=== PATIENT | female | born 1960 | race Caucasian/White ===

== ENCOUNTER 2016-06-30 15:26 | Inpatient (IN) | payer MEDICARE, BC ==
[2016-06-30] MEDS ORDERED: SODIUM CHLORIDE 0.9% 1,000 ML IV ONE ×2 (16:22→17:02)
--- NOTE | 2016-06-30 16:28 | ED ---
General Adult HPI - General Stated complaint: Altered Mental Status Time Seen by Provider: 06/30/16 16:11 Source: RN notes reviewed - History of Present Illness Initial comments: Patient is a 56-year-old female presents to the emergency room for evaluation of altered mental status. Patient's states that patient began with nausea and vomiting on Friday morning and has not left her bed since. Patient' s states that patient has not been acting herself and has not eaten anything since Friday. Patient denies any vomiting since Friday. Patient denies chest pain, shortness of breath, headache, dizziness. Patient does state that she noticed that her left pinky toe began turning purple and has been getting worse over the past few days. Patient denies any known trauma or injury to her foot. Patient states it hurts to put weight on her left foot. Patient denies any fevers or chills. Patient states she is very thirsty. Patient denies any current nausea. Patient denies abdominal pain. Patient denies chest pain. Patient states she's had no appetite since Friday. Patient states she takes Flexeril, Neurontin and [place] for chronic low back pain. Patient denies any other significant past medical history. - Related Data Home Medications Medication Instructions Recorded Confirmed Albuterol Sulfate [Proair Hfa] 2 puff INHALATION RT-Q6H PRN 06/30/16 06/30/16 Cyclobenzaprine [Flexeril] 10 mg PO HS 06/30/16 06/30/16 Gabapentin 800 mg PO TID PRN 06/30/16 06/30/16 HYDROcodone/APAP 7.5-325MG [[place] 1 tab PO BID PRN 06/30/16 06/30/16 7.5-325] diphenhydrAMINE HCL [Benadryl] 50 mg PO TID PRN 06/30/16 06/30/16 Allergies Allergy/AdvReac Type Severity Reaction Status Date / Time No Known Allergies Allergy Verified 06/30/16 18:37 Review of Systems ROS Statement: Those systems with pertinent positive or pertinent negative responses have been documented in the HPI. ROS Other: All systems not noted in ROS Statement are negative. General Exam - General Exam Comments Initial Comments: Laying in exam room, no acute distress. General appearance: alert Head exam: Present: atraumatic, normocephalic, normal inspection Eye exam: Present: normal appearance Pupils: Present: normal accommodation ENT exam: Present: normal exam, mucous membranes dry Neck exam: Present: normal inspection, full ROM. Absent: tenderness, lymphadenopathy Respiratory exam: Present: normal lung sounds bilaterally. Absent: respiratory distress Cardiovascular Exam: Present: regular rate, normal rhythm, normal heart sounds GI/Abdominal exam: Present: soft, normal bowel sounds. Absent: distended, tenderness, guarding, rebound, rigid Left Foot/Toe exam: Present: tenderness (Palpating over the 1-5 digits). Absent: normal inspection (black appearing digits of left foot ), full ROM Neurovascular tendon exam: Absent: pulse deficit (2+ dorsal pedal and posterior to the pulses) Back exam: Present: normal inspection Neurological exam: Present: alert Psychiatric exam: Present: normal affect Skin exam: Present: warm Course Vital Signs 06/30/16 06/30/16 06/30/16 16:00 18:35 19:18 Temperature 98.3 F 99.3 F 97.7 F Pulse Rate 122 H 124 H 125 H Respiratory 18 16 16 Rate Blood Pressure 166/97 164/87 134/99 O2 Sat by Pulse 96 98 99 Oximetry 06/30/16 20:19 Temperature Pulse Rate 112 H Respiratory 20 Rate Blood Pressure 178/82 O2 Sat by Pulse 96 Oximetry EKG Findings - EKG Comments: EKG Findings:: Sinus tachycardia, ventricular rate 116 bpm, RI interval 138 milliseconds, QRS duration 82 ms, QT/QTc is 318/442 ms Medical Decision Making - Medical Decision Making Patient is a 56-year-old female presents to the emergency room for evaluation. Patient's elevated WBC. Urinalysis suspicious for urinary tract infection. Patient also noted to have blue discoloration of the toes of her left foot. Patient will be admitted for rehydration, treatment for urinary tract infection and consult with vascular specialist for possible arterial occlusion of left foot. Case discussed with Dr. Villanueva who also evaluated patient. Dr. Villanueva spoke with Dr. Burton who agreed to admit patient. - Lab Data Result diagrams: 06/30/16 16:20 06/30/16 18:23 Lab Results 06/30/16 06/30/16 06/30/16 Range/Units 16:20 16:20 16:20 WBC 11.4 H (3.8-10.6) k/uL RBC 5.04 (3.80-5.40) m/uL Hgb 15.2 (11.4-16.0) gm/dL Hct 43.8 (34.0-46.0) % MCV 87.0 (80.0-100.0) fL MCH 30.1 (25.0-35.0) pg MCHC 34.6 (31.0-37.0) g/dL RDW 14.5 (11.5-15.5) % Plt Count 108 L (150-450) k/uL Neutrophils % 88 % Lymphocytes % 4 % Monocytes % 5 % Eosinophils % 1 % Basophils % 0 % Neutrophils # 10.0 H (1.3-7.7) k/uL Lymphocytes # 0.4 L (1.0-4.8) k/uL Monocytes # 0.6 (0-1.0) k/uL Eosinophils # 0.1 (0-0.7) k/uL Basophils # 0.0 (0-0.2) k/uL Poikilocytosis Slight ESR 35 H (0-20) mm/hr PT (9.0-12.0) sec INR (<1.1) APTT (22.0-30.0) sec Sodium (137-145) mmol/L Potassium (3.5-5.1) mmol/L Chloride (98-107) mmol/L Carbon Dioxide (22-30) mmol/L Anion Gap mmol/L BUN (7-17) mg/dL Creatinine (0.52-1.04) mg/dL Est GFR (MDRD) Af Amer (>60 ml/min/1.73 sqM) Est GFR (MDRD) Non-Af (>60 ml/min/1.73 sqM) Glucose (74-99) mg/dL POC Glucose (mg/dL) (75-99) mg/dL POC Glu Floral Artist ID Plasma Lactic Acid Rob[place] 1.6 (0.7-2.0) mmol/L Calcium (8.4-10.2) mg/dL Total Bilirubin (0.2-1.3) mg/dL AST (14-36) U/L ALT (9-52) U/L Alkaline Phosphatase (38-126) U/L Total Creatine Kinase (30-135) U/L CK-MB (CK-2) (0.0-2.4) ng/mL CK-MB (CK-2) Rel Index Troponin I (0.000-0.034) ng/mL C-Reactive Protein (<10.0) mg/L Total Protein (6.3-8.2) g/dL Albumin (3.5-5.0) g/dL Urine Color Urine Appearance (Clear) Urine pH (5.0-8.0) Ur Specific [place] (1.001-1.035) Urine Protein (Negative) Urine Glucose (UA) (Negative) Urine Ketones (Negative) Urine Blood (Negative) Urine Nitrate (Negative) Urine Bilirubin (Negative) Urine Urobilinogen (<2.0) mg/dL Ur Leukocyte Esterase (Negative) Urine RBC (0-5) /hpf Urine WBC (0-5) /hpf Urine WBC Clumps (None) /hpf Ur Squamous Epith Cells (0-4) /hpf Urine Bacteria (None) /hpf Urine Mucus (None) /hpf Urine Opiates Screen (NotDetected) Ur Oxycodone Screen (NotDetected) Urine Methadone Screen (NotDetected) Ur Propoxyphene Screen (NotDetected) Ur Barbiturates Screen (NotDetected) U Tricyclic Antidepress (NotDetected) Ur Phencyclidine Scrn (NotDetected) Ur Amphetamines Screen (NotDetected) U Methamphetamines Scrn (NotDetected) U Benzodiazepines Scrn (NotDetected) Urine Cocaine Screen (NotDetected) U Marijuana (THC) Screen (NotDetected) 06/30/16 06/30/16 06/30/16 Range/Units 16:41 18:23 18:23 WBC (3.8-10.6) k/uL RBC (3.80-5.40) m/uL Hgb (11.4-16.0) gm/dL Hct (34.0-46.0) % MCV (80.0-100.0) fL MCH (25.0-35.0) pg MCHC (31.0-37.0) g/dL RDW (11.5-15.5) % Plt Count (150-450) k/uL Neutrophils % % Lymphocytes % % Monocytes % % Eosinophils % % Basophils % % Neutrophils # (1.3-7.7) k/uL Lymphocytes # (1.0-4.8) k/uL Monocytes # (0-1.0) k/uL Eosinophils # (0-0.7) k/uL Basophils # (0-0.2) k/uL Poikilocytosis ESR (0-20) mm/hr PT (9.0-12.0) sec INR (<1.1) APTT (22.0-30.0) sec Sodium 139 (137-145) mmol/L Potassium 3.3 L (3.5-5.1) mmol/L Chloride 109 H (98-107) mmol/L Carbon Dioxide 18 L (22-30) mmol/L Anion Gap 12 mmol/L BUN 27 H (7-17) mg/dL Creatinine 0.90 (0.52-1.04) mg/dL Est GFR (MDRD) Af Amer >60 (>60 ml/min/1.73 sqM) Est GFR (MDRD) Non-Af >60 (>60 ml/min/1.73 sqM) Glucose 102 H (74-99) mg/dL POC Glucose (mg/dL) 88 (75-99) mg/dL POC Glu Floral Artist ID [place] Plasma Lactic Acid Robles (0.7-2.0) mmol/L Calcium 7.7 L (8.4-10.2) mg/dL Total Bilirubin 1.2 (0.2-1.3) mg/dL AST 27 (14-36) U/L ALT 34 (9-52) U/L Alkaline Phosphatase 78 (38-126) U/L Total Creatine Kinase 387 H (30-135) U/L CK-MB (CK-2) 0.6 (0.0-2.4) ng/mL CK-MB (CK-2) Rel Index 0.2 Troponin I <0.012 (0.000-0.034) ng/mL C-Reactive Protein (<10.0) mg/L Total Protein 4.9 L (6.3-8.2) g/dL Albumin 2.7 L (3.5-5.0) g/dL Urine Color Urine Appearance (Clear) Urine pH (5.0-8.0) Ur Specific [place] (1.001-1.035) Urine Protein (Negative) Urine Glucose (UA) (Negative) Urine Ketones (Negative) Urine Blood (Negative) Urine Nitrate (Negative) Urine Bilirubin (Negative) Urine Urobilinogen (<2.0) mg/dL Ur Leukocyte Esterase (Negative) Urine RBC (0-5) /hpf Urine WBC (0-5) /hpf Urine WBC Clumps (None) /hpf Ur Squamous Epith Cells (0-4) /hpf Urine Bacteria (None) /hpf Urine Mucus (None) /hpf Urine Opiates Screen (NotDetected) Ur Oxycodone Screen (NotDetected) Urine Methadone Screen (NotDetected) Ur Propoxyphene Screen (NotDetected) Ur Barbiturates Screen (NotDetected) U Tricyclic Antidepress (NotDetected) Ur Phencyclidine Scrn (NotDetected) Ur Amphetamines Screen (NotDetected) U Methamphetamines Scrn (NotDetected) U Benzodiazepines Scrn (NotDetected) Urine Cocaine Screen (NotDetected) U Marijuana (THC) Screen (NotDetected) 06/30/16 06/30/16 06/30/16 Range/Units 18:23 18:23 18:45 WBC (3.8-10.6) k/uL RBC (3.80-5.40) m/uL Hgb (11.4-16.0) gm/dL Hct (34.0-46.0) % MCV (80.0-100.0) fL MCH (25.0-35.0) pg MCHC (31.0-37.0) g/dL RDW (11.5-15.5) % Plt Count (150-450) k/uL Neutrophils % % Lymphocytes % % Monocytes % % Eosinophils % % Basophils % % Neutrophils # (1.3-7.7) k/uL Lymphocytes # (1.0-4.8) k/uL Monocytes # (0-1.0) k/uL Eosinophils # (0-0.7) k/uL Basophils # (0-0.2) k/uL Poikilocytosis ESR (0-20) mm/hr PT 10.5 (9.0-12.0) sec INR 1.0 (<1.1) APTT 27.6 (22.0-30.0) sec Sodium (137-145) mmol/L Potassium (3.5-5.1) mmol/L Chloride (98-107) mmol/L Carbon Dioxide (22-30) mmol/L Anion Gap mmol/L BUN (7-17) mg/dL Creatinine (0.52-1.04) mg/dL Est GFR (MDRD) Af Amer (>60 ml/min/1.73 sqM) Est GFR (MDRD) Non-Af (>60 ml/min/1.73 sqM) Glucose (74-99) mg/dL POC Glucose (mg/dL) (75-99) mg/dL POC Glu Floral Artist ID Plasma Lactic Acid [place] (0.7-2.0) mmol/L Calcium (8.4-10.2) mg/dL Total Bilirubin (0.2-1.3) mg/dL AST (14-36) U/L ALT (9-52) U/L Alkaline Phosphatase (38-126) U/L Total Creatine Kinase (30-135) U/L CK-MB (CK-2) (0.0-2.4) ng/mL CK-MB (CK-2) Rel Index Troponin I (0.000-0.034) ng/mL C-Reactive Protein 381.8 H (<10.0) mg/L Total Protein (6.3-8.2) g/dL Albumin (3.5-5.0) g/dL Urine Color Yellow Urine Appearance Cloudy H (Clear) Urine pH 6.0 (5.0-8.0) Ur Specific [place] 1.016 (1.001-1.035) Urine Protein 2+ H (Negative) Urine Glucose (UA) Negative (Negative) Urine Ketones 1+ H (Negative) Urine Blood Moderate H (Negative) Urine Nitrate Positive H (Negative) Urine Bilirubin Negative (Negative) Urine Urobilinogen <2.0 (<2.0) mg/dL Ur Leukocyte Esterase Moderate H (Negative) Urine RBC 17 H (0-5) /hpf Urine WBC 108 H (0-5) /hpf Urine WBC Clumps Few H (None) /hpf Ur Squamous Epith Cells 1 (0-4) /hpf Urine Bacteria Many H (None) /hpf Urine Mucus Few H (None) /hpf Urine Opiates Screen Not Detected (NotDetected) Ur Oxycodone Screen Not Detected (NotDetected) Urine Methadone Screen Not Detected (NotDetected) Ur Propoxyphene Screen Not Detected (NotDetected) Ur Barbiturates Screen Not Detected (NotDetected) U Tricyclic Antidepress Not Detected (NotDetected) Ur Phencyclidine Scrn Not Detected (NotDetected) Ur Amphetamines Screen Not Detected (NotDetected) U Methamphetamines Scrn Not Detected (NotDetected) U Benzodiazepines Scrn Not Detected (NotDetected) Urine Cocaine Screen Not Detected (NotDetected) U Marijuana (THC) Screen Not Detected (NotDetected) - Radiology Data Radiology results: report reviewed, image reviewed Disposition Clinical Impression: Urinary tract infection, Arterial occlusion, Dehydration Disposition: ADMITTED IP TO THIS [facility] Condition: Stable Decision Date: 06/30/16
[2016-06-30 16:42] LABS: Glucose,Whole Blood 88 mg/dL (75-99)
--- NOTE | 2016-06-30 17:03 | XR ---
EXAMINATION TYPE: XR chest 2V DATE OF EXAM: 06/30/2016 4:59 PM COMPARISON: NONE HISTORY: Foot pain, dehydration TECHNIQUE: Frontal and lateral views of the chest are obtained. FINDINGS: There is evidence for minimal infiltrate in the left lower lobe behind the heart. The othe r lung amaya are clear. Heart and mediastinum are normal. There is no heart failure. There is no sig n of pleural effusion. IMPRESSION: Minimal left lower lobe infiltrate.
--- NOTE | 2016-06-30 17:04 | XR ---
EXAMINATION TYPE: XR foot complete LT DATE OF EXAM: 06/30/2016 4:59 PM COMPARISON: NONE HISTORY: Foot pain TECHNIQUE: 3 views FINDINGS: I see no fracture nor dislocation. Metatarsals are intact. There are no erosions. IMPRESSION: Negative left foot exam.
[2016-06-30 17:08] LABS: Basophils % (A) 0 %; CH 29.9; CHCM 34.6; Eosinophils # (A) 0.1 k/uL (0-0.7); Eosinophils % (A) 1 %; HCT 43.8 % (34.0-46.0); HDW 3.64; HGB 15.2 gm/dL (11.4-16.0); Luc % (Auto) 2; Lymphocytes # (A) 0.4 k/uL (1.0-4.8); Lymphocytes % (A) 4 %; MCH 30.1 pg (25.0-35.0); MCHC 34.6 g/dL (31.0-37.0); Mean Platelet Volume 10.3; Monocytes # (A) 0.6 k/uL (0-1.0); Monocytes % (A) 5 %; Neutrophils % (A) 88 %; Poikilocytosis Slight; RBC 5.04 m/uL (3.80-5.40); RDW 14.5 % (11.5-15.5); WBC 11.4 k/uL (3.8-10.6); WBC (Perox) 11.72
[2016-06-30 18:48] LABS: Partial Thromboplastin Time 27.6 sec (22.0-30.0); Prothrombin Time 10.5 sec (9.0-12.0)
[2016-06-30 18:56] LABS: ALT 34 U/L (9-52); AST 27 U/L (14-36); Alkaline Phosphatase 78 U/L (38-126); Anion Gap 12 mmol/L; Blood Urea Nitrogen 27 mg/dL (7-17); Calcium 7.7 mg/dL (8.4-10.2); Carbon Dioxide 18 mmol/L (22-30); Chloride 109 mmol/L (98-107); Glucose 102 mg/dL (74-99); Non-African American GFR(MDRD) >60 (>60 ml/min/1.73 sqM); Potassium 3.3 mmol/L (3.5-5.1); Sodium 139 mmol/L (137-145); Total Bilirubin 1.2 mg/dL (0.2-1.3); Total Protein 4.9 g/dL (6.3-8.2)
[2016-06-30 19:23] LABS: Creatine Kinase 387 U/L (30-135)
[2016-06-30 19:26] LABS: Appearance,Urine Cloudy (Clear); Bacteria,Urine Many /hpf; Bilirubin,Urine Negative (Negative); Glucose,Urine (UA) Negative (Negative); Ketones,Urine 1+ (Negative); Leukocyte Esterase,Urine Moderate (Negative); Mucus,Urine Few /hpf; Nitrite,Urine Positive (Negative); Particle Count 31295; Protein,Urine 2+ (Negative); RBC,Urine 17 /hpf (0-5); Specific Gravity,Urine 1.016 (1.001-1.035); Squamous Epithelial Cell,Urine 1 /hpf (0-4); UA Billing (MACRO vs. MICRO) MICRO; Urobilinogen,Urine <2.0 mg/dL (<2.0); WBC,Urine 108 /hpf (0-5)
[2016-06-30 19:36] LABS: Creatine Kinase MB 0.6 ng/mL (0.0-2.4); Troponin I <0.012 ng/mL (0.000-0.034)
[2016-06-30] MEDS ORDERED: IBUPROFEN 400 MG TAB PO PRN (20:20)
[2016-06-30] MEDS ORDERED: ONDANSETRON 4 MG/2 ML VIAL IVP PRN (20:20)
[2016-06-30] MEDS ORDERED: NALOXONE 0.4 MG/ML 1 ML VIAL IV PRN (20:20)
[2016-06-30] MEDS ORDERED: LEVOFLOXACIN 500MG-D5W PMX 500 MG in DEXTROSE/WATER 1 100ML.BAG IVPB STA (20:26)
[2016-06-30 20:34] LABS: C Reactive Protein 381.8 mg/L (<10.0)
[2016-06-30 20:41] LABS: Magnesium 2.2 mg/dL (1.6-2.3)
[2016-06-30] MEDS: SODIUM CHLORIDE 0.9% 1,000 ML IV SCH (20:48)
[2016-06-30] MEDS ORDERED: diphenhydrAMINE 50 MG CAP PO PRN (23:44)
[2016-06-30] MEDS ORDERED: ALBUTEROL NEBULIZED 2.5 MG/3 ML INHALATION PRN (23:44)
--- NOTE | 2016-07-01 00:22 | CT ---
EXAMINATION TYPE: CT brain wo con DATE OF EXAM: 07/01/2016 12:12 AM COMPARISON: NONE HISTORY: UTI, MS changes CT DLP: 945.50 mGycm Automated exposure control for dose reduction was used. FINDINGS: The ventricles and sulci appear normal. There is no mass effect or midline shift. There is no sign of intracranial hemorrhage. The calvarium is intact. IMPRESSION: Normal unenhanced head CT scan.
[2016-07-01 04:11] VITALS: BMI 26.2
[2016-07-01] MEDS: SODIUM CHLORIDE 0.9% 1,000 ML IV SCH ×3 (05:10→16:09)
[2016-07-01] MEDS: HYDROcodone/APAP 7.5-325MG 1 EACH TAB PO PRN ×2 (07:11→16:07)
[2016-07-01 08:19] LABS: Basophils # (A) 0.1 k/uL (0-0.2); Basophils % (A) 1 %; CH 30.4; CHCM 34.6; Eosinophils % (A) 0 %; HCT 38.4 % (34.0-46.0); HDW 2.62; HGB 12.9 gm/dL (11.4-16.0); Luc # (Auto) 0.25; Luc % (Auto) 3; Lymphocytes # (A) 0.4 k/uL (1.0-4.8); Lymphocytes % (A) 4 %; MCH 29.9 pg (25.0-35.0); MCHC 33.7 g/dL (31.0-37.0); MCV 88.5 fL (80.0-100.0); Mean Platelet Volume 9.1; Monocytes # (A) 0.6 k/uL (0-1.0); Monocytes % (A) 7 %; Neutrophils # (A) 7.5 k/uL (1.3-7.7); Neutrophils % (A) 84 %; RBC 4.34 m/uL (3.80-5.40); RDW 13.9 % (11.5-15.5); WBC 8.9 k/uL (3.8-10.6); WBC (Perox) 9.33
[2016-07-01 08:20] LABS: Anion Gap 12 mmol/L; Blood Urea Nitrogen 22 mg/dL (7-17); Calcium 7.6 mg/dL (8.4-10.2); Carbon Dioxide 17 mmol/L (22-30); Chloride 108 mmol/L (98-107); Glucose 89 mg/dL (74-99); Non-African American GFR(MDRD) >60 (>60 ml/min/1.73 sqM); Sodium 137 mmol/L (137-145)
[2016-07-01] MEDS ORDERED: IV VANCOMYCIN PER PHARMACY 1 EACH MISC MISCELLANE PRN (10:00)
[2016-07-01] MEDS ORDERED: VANCOMYCIN 1,000 MG in SODIUM CHLORIDE 0.9% 250 ML IVPB STA (10:01)
[2016-07-01] MEDS: POTASSIUM CHLORIDE ER 20 MEQ TAB.ER PO SCH ×3 (10:32→15:59)
[2016-07-01 11:07] LABS: Manual Review Performed
[2016-07-01] MEDS: HYDROmorphone 1 MG/ML 1 ML SYRINGE IV PRN ×2 (11:09→21:45)
[2016-07-01] MEDS ORDERED: HYDROmorphone 1 MG/ML 1 ML SYRINGE IVP PRN (11:12)
[2016-07-01] MEDS ORDERED: RX INFO: IV CONTRAST WAS GIVEN 1 EACH MISC MISCELLANE PRN (12:11)
--- NOTE | 2016-07-01 12:46 | HP ---
DATE OF ADMISSION: CHIEF COMPLAINT: Change in mental status and weakness. HISTORY OF PRESENT ILLNESS: This 56-year-old woman with a past medical history of multiple medical problems including right foot neuropathy, history of nicotine dependence being followed by Dr. Palacio in the outpatient setting, not feeling well for the past several days. Patient vomited on Raul. Subsequently, the noted the patient was not acting herself. The patient was confused and the patient had a bluish discoloration of the left foot and the patient came to [facility] and admitted for further evaluation and treatment. The admission labs showed WBC 11.4, potassium 3.3 otherwise, C. reactive protein is elevated and UA showed evidence of UTI. There is no history of any fever, rigors. No history of headache, loss of consciousness, seizures, chest pain, palpitations, hematochezia, melena at this time. PAST MEDICAL HISTORY: History of peripheral neuropathy, history of nicotine dependence. Medications prior to admission include: 1. Benadryl 50 mg t.i.d. p.r.n. 2. [place] 7.5 b.i.d. p.r.n. 3. Gabapentin 800 mg t.i.d. p.r.n. 4. Flexeril 10 mg q.6. 5. ProAir 2 puffs q.6 p.r.n. ALLERGIES: None. FAMILY HISTORY: No history of heart disease or strokes in the family. SOCIAL HISTORY: History of smoking . No history of alcohol intake. REVIEW OF SYSTEMS: ENT: No diminished hearing. No diminished vision. CARDIOVASCULAR: No angina. RESPIRATORY: No cough. GI: No nausea. : No dysuria. NERVOUS SYSTEM: As mentioned earlier. ALLERGY/IMMUNOLOGY: No asthma or hayfever. MUSCULOSKELETAL: As mentioned earlier. HEMATOLOGY/ONCOLOGY: Mentioned earlier. PSYCHIATRY: Mentioned earlier. PHYSICAL EXAMINATION: Alert and oriented x3. Pulse 125, blood pressure 135/99, respirations 16, temperature 97.7, pulse ox 99% on 2 liters. HEENT: Conjunctivae normal. Oral mucosa moist. NECK: No jugular venous distention. No carotid bruit. No lymph node enlargement. CARDIOVASCULAR: S1 and S2, muffled. No S3, no S4. RESPIRATORY: Breath sounds diminished at the bases. A few scattered rhonchi. No crackles. ABDOMEN: Soft, nontender. No mass palpable. No hepatosplenomegaly. LEGS: Pulses felt diminished, otherwise, bluish discussion of the left multiple toes present. LYMPHATIC: No lymphadenopathy in the neck, axillae or groin. SKIN: No ulcer, rash or bleeding. NERVOUS SYSTEM: Higher function as mentioned. Moves all four limbs. No focal motor sensory deficits. LABS: WBC 11.4, platelets 108, sodium 130, potassium 3.3. protein is 381.8. Albumin is 2.7. UA noted. ASSESSMENT: 1. Possible urinary tract infection with sepsis. 2. Change in mental status, metabolic encephalopathy. 3. Rule out left leg ischemia. 4. Rule out vasculitis. 5. Hypokalemia. 6. History of nicotine dependence. 7. Increased WBC. 8. Thrombocytopenia. 9. Hypoalbuminemia. 10. History of right foot neuropathy. 11. History of nicotine dependence. 12. FULL CODE. 13. Possibly left lower lobe pneumonia, possibly community-acquired. RECOMMENDATIONS AND DISCUSSION: In this 56-year-old woman who presented with multiple complex medical issues, we will monitor the patient closely. Continue current medications and symptomatic treatment. Otherwise, will obtain a vascular consultation. Empiric antibiotics for UTI. Vascular work-up. Guarded prognosis because of multiple complex medical issues. Further recommendations to follow. I also recommend a CAT scan of the brain also. The chest x-ray showed minimal left lower lobe infiltrate. Prognosis guarded. Further recommendations to follow. I also recommend a 2-D echo with Doppler to complete the work-up. MTDD
--- NOTE | 2016-07-01 16:35 | P.CON ---
Consult Note - . Consult date: 07/01/16 Assessment/Plan:: impression; 1. 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 gram negative bacteremia; UTI 3. nicotine dependence plan 1. await arterial doppler studies 2. continue current medical regimen; will require antiplatelet agents; consider ASA 81 mg po daily if patient can tolerate from medical standpoint, consider statin, no indication for full anticoagulation at present time from vascular surgery standpoint 3. continue IV hydration 4. patient will require open left iliac artery [employer]PER[employer]/stenting with covered stent when septicemia is resolved and blood cultures are negative 56 y/o woman with 3 week history of left forefoot discoloration; states that this progressively became worse with significant pain noted in the left forefoot. Admitted on 06/30/2016 with urinary tract infection and gram negative bacteremia. Has a history of scoliosis requiring to back operation in 2008 and 2009. Since then has had numbness in her right leg. Uses a shopping cart to stabilize herself in large stores. Has a history of calf cramping in right leg when walking distances. Denies a history of CAD, CVA, cardiac arrhythmias in the past. Has a 20-30 pack year history of smoking and currently smokes 1/2 ppd. Strong family history of lupus (mother and two aunts). Denies history of collagen vascular disease herself. CMHx; nicotine dependence, scoliosis with lumbosacral radiculopathy, PSHx; spine surgery x 2 as discussed above, x 2 Habits; 20-30pack year history of smoking; currently smokes 1/2 ppd, no ETOH or drugs FHx; pancreatic cancer, lupus, PE; WD ill-appearing female in moderate distress secondary to left foot pain BP 140/80 AR= 86 O2 sat = 96% on RA, AF HEENT: normocephalic, anicteric sclera, poor dentition, trachea midline, no bruits, no JVD Lungs; clear bilaterally Heart; RRR, normal S1 and S2 ABD; soft, non-tender, no palpable pulsatile organomegaly or bruits EXTR; femoral pulses are palpable but left is diminished; right popliteal and dorsalis pedis pulses are palpable and left popliteal and dorsalis pedis pulses are palpable but diminshed; left posterior tibial pulse is not palpable; cyanosis of all toes of left foot with delayed capillary refill 3-4 seconds; Labs; reviewed; demonstrates gram negative bacteremia with evidence of UTI on U/ A from 06/30/2016 CTA as interpreted by me demonstrates patent thoracic and abdominal aorta with no evidence of significant thrombus burden on arterial wall, the right iliac system appears widely patent; there is a short segment stenosis of the distal left common iliac artery with thrombus formation noted; the left external iliac artery distally appears widely patent; the common femoral, profunda, superficial femoral and popliteal arteries appear patent bilaterally; impression/plan as noted above will hold off on any intervention until UTI treated and bacteremia resolved unless further embolization noted supportive care at present time
--- NOTE | 2016-07-01 16:41 | CT ---
EXAMINATION TYPE: CT angio thoracic/abd aorta with runoff DATE OF EXAM: 07/01/2016 3:02 PM COMPARISON: NONE HISTORY: 56-year-old female complains of left foot pain., Embolization to left foot. CT DLP: 459.1 mGycm Automated exposure control for dose reduction was used. Technique: CT performed with IV Contrast, patient injected with 125 mL of Omnipaque 350. Coronal and sagittal reconstructions performed. Imaging performed from the upper third thorax down through the lo wer extremities. 3-D reconstructions generated on a dedicated independent workstation. FINDINGS: CHEST: Heart is normal size with trace pericardial effusion. Coronary vessel calcifications are present in r emarkable for coronary artery disease. Aorta is normal caliber with conventional arch vessel branchin g anatomy. There is some thickening around the base of the heart extending along the pulmonary outflow tract and ascending aorta suspected to represent a basilar pericardial effusion. There is moderate generalized centrilobular emphysematous change. No consolidation or pleural effusio n. There is mild dependent atelectasis. ABDOMEN: No focal liver lesion. Gallbladder within normal limits. The bile duct is mildly enlarged at 9 mm wit hout any distal obstructing lesion seen. Mild diffuse thickening of the left adrenal gland. Right adrenal gland within normal limits. Mildly enlarged left para-aortic lymph nodes measure up to 1.2 cm. Small fatty umbilical hernia. There is a large 1.6 cm calculus impacted in the left renal pelvis with delayed enhancement of the le ft renal parenchyma and some patchy areas of hypodensity, for example, axial image 135. Spleen and pancreas show no gross abnormal mobility. No dilated small bowel, free fluid, or free air. No pericolonic inflammatory change seen. Pelvis: Bladder is urine distended. Uterus is advised. The ovaries are secured by adjacent bowel loops. Bones: Postsurgical changes in the lumbar spine with degenerative changes as well. There are moderate left greater than right knee joint effusions. Vasculature: The thoracic aorta is normal caliber but mildly elongated. The celiac access and SMA origins are patent. There is mild atherosclerotic change at the origin of b oth adan renal arteries. ANILA appears patent but is narrowed at its origin. Mild atherosclerotic calcifications throughout the abdominal aorta without aneurysm. On the right, there is mild segmental narrowing within the right common iliac artery secondary to me tastatic calcification. The right external iliac artery, common femoral artery, superficial femoral a rtery, popliteal artery, tibial peroneal trunk, anterior tibial artery, posterior tibial artery, and peroneal arteries are patent with three-vessel runoff into the foot. On the left, there is prominent atherosclerotic calcification and plaque within the left common iliac artery causing severe stenosis for a length of 1.1 cm, axial image 189. The left external iliac, com mon femoral, superficial femoral, popliteal arteries as well as the tibioperoneal trunk are patent. T he left peroneal artery becomes diminutive along the upper third leg and there is two-vessel runoff i nto the foot. IMPRESSION: INCIDENTAL FINDINGS: 1. A 1.6 cm calculus impacted in the left renal pelvis with obstructive uropathy suggested by asymmet darnell left renal enhancement. Some patchy areas of hypodensity could relate to obstruction or underlyin g pyelonephritis. 2. Bile duct dilated at 9 mm may be chronic. Correlate with alkaline phosphatase and bilirubin levels to exclude the possibility of a biliary obstruction. 3. Mildly enlarged left para-aortic lymph node at 1.2 cm possibly reactive/post inflammatory. Recomme nd 3 month follow-up exam to reassess. 4. COPD with moderate emphysema. VASCULATURE: 1. MILD ATHEROSCLEROTIC CHANGES THROUGHOUT THE ABDOMINAL AORTA WITHOUT ANEURYSM. 2. THREE-VESSEL RUNOFF TO THE RIGHT LOWER EXTREMITY WITH MILD ATHEROSCLEROTIC NARROWING IN THE RIGHT COMMON ILIAC ARTERY. 3. TWO-VESSEL RUNOFF TO THE LEFT LOWER EXTREMITY. THE PERONEAL ARTERY BECOMES DIMINUTIVE AT THE UPPER THIRD LEG LEVEL. 4. A 1 CM SEGMENT OF SEVERE NARROWING WITHIN THE LEFT COMMON ILIAC ARTERY.
[2016-07-01 20:02] LABS: Potassium 3.6 mmol/L (3.5-5.1)
[2016-07-01] MEDS: CYCLOBENZAPRINE 10 MG TAB PO SCH (21:44)
[2016-07-01] MEDS: 0.9% NACL WITH KCL 20 MEQ/L 1,000 ML IV SCH (21:44)
[2016-07-01] MEDS ORDERED: HEPARIN SODIUM,PORCINE 5,000 UNIT/ML 1 ML VIAL SQ SCH (22:30)
[2016-07-01] MEDS: ASPIRIN 325 MG TAB PO SCH (23:01)
[2016-07-02] MEDS: HYDROmorphone 1 MG/ML 1 ML SYRINGE IV PRN ×4 (04:19→22:15)
[2016-07-02] MEDS: 0.9% NACL WITH KCL 20 MEQ/L 1,000 ML IV SCH ×4 (05:13→23:23)
[2016-07-02 06:13] LABS: HIV-1/HIV-2 Ab Screen NONREAC (NON REAC)
[2016-07-02] MEDS: ASPIRIN 325 MG TAB PO SCH (08:24)
[2016-07-02] MEDS: HYDROcodone/APAP 7.5-325MG 1 EACH TAB PO PRN ×2 (08:55→21:51)
[2016-07-02 09:00] LABS: Anion Gap 11 mmol/L; Blood Urea Nitrogen 16 mg/dL (7-17); Calcium 7.9 mg/dL (8.4-10.2); Carbon Dioxide 14 mmol/L (22-30); Chloride 117 mmol/L (98-107); Cholesterol 85 mg/dL (<200); Glucose 79 mg/dL (74-99); HDL Cholesterol 17 mg/dL (40-60); Non-African American GFR(MDRD) >60 (>60 ml/min/1.73 sqM); Potassium 4.5 mmol/L (3.5-5.1); Sodium 142 mmol/L (137-145); Triglycerides 148 mg/dL (<150)
[2016-07-02 09:35] LABS: Basophils # (A) 0.1 k/uL (0-0.2); Basophils % (A) 1 %; CH 29.9; CHCM 32.6; Eosinophils # (A) 0.2 k/uL (0-0.7); Eosinophils % (A) 2 %; HCT 37.6 % (34.0-46.0); HDW 2.72; Luc # (Auto) 0.29; Luc % (Auto) 4; Lymphocytes # (A) 0.6 k/uL (1.0-4.8); Lymphocytes % (A) 8 %; MCH 29.5 pg (25.0-35.0); MCV 92.3 fL (80.0-100.0); Mean Platelet Volume 9.3; Monocytes # (A) 0.8 k/uL (0-1.0); Monocytes % (A) 10 %; Neutrophils # (A) 6.2 k/uL (1.3-7.7); Neutrophils % (A) 76 %; RBC 4.07 m/uL (3.80-5.40); RDW 14.2 % (11.5-15.5); WBC 8.2 k/uL (3.8-10.6); WBC (Perox) 8.95
--- NOTE | 2016-07-02 09:38 | PN ---
DATE OF SERVICE: 07/01/2006 This 56-year-old woman who was admitted with change in mental status is being closely monitored. The patient also had significant lesions, vascular lesions on the left lower limb suggestive of ischemic embolic lesions. Vascular surgery is following the patient closely. Patient also had a positive evidence of urinary tract infection with sepsis, with gram negative bacilli grown from the culture. The patient on broad spectrum IV antibiotics. Sensorium definitely improved at this time. The patient being closely monitored. The patient has history of smoking, CRP and ESR is elevated. The potassium is also 3. Past medical history is reviewed. REVIEW OF SYSTEMS: CARDIOVASCULAR: No angina or palpitations. RESPIRATORY: As mentioned earlier. GASTROINTESTINAL: As mentioned earlier. : No dysuria. Nervous system: No numbness or weakness. Current medications include: 1. [place] 7.5 mg. 2. Rocephin 1 gram IV daily. 3. Flexeril. 4. Benadryl. 5. Neurontin. 6. Dilaudid. 7. Motrin. 8. Narcan. 9. Sulfa. 10. Vancomycin. PHYSICAL EXAMINATION: Patient is alert and oriented x3. Pulse is 86, blood pressure 140/86, respirations 16, temperature 97.8, pulse ox 97% on room air. HEENT: Conjunctivae normal. NECK: No jugular venous distention. CARDIOVASCULAR: S1, S2 muffled. RESPIRATORY: Breath sounds diminished at the bases. A few scattered rhonchi. No crackles. ABDOMEN: Soft. Nontender. No mass palpable. LEGS: Pulses diminished on the left side. Multiple ecchymotic lesions also present. Lab investigations are platelets 77 and potassium 3 and UA noted. ASSESSMENT: 1. Urinary tract infection with sepsis, change in mental status with a gram negative bacilli, present on admission. 2. Ischemic ulcerations of the left leg with 1 cm segment of severe narrowing with the left common iliac artery and CTA. 3. Multiple other erythematous lesions in the CTA. 4. Increased CRP and ESR. 5. Hypokalemia. 6. History of nicotine dependence. 7. Increased WBC. 8. Thrombocytopenia. 9. Hypoalbuminemia. 10. History of right foot neuropathy. 11. History of nicotine dependence. 12. Possible left lower pneumonia, possibly community acquired present on admission. 13. FULL CODE. RECOMMENDATIONS AND DISCUSSION: In this 56-year-old woman who presented with multiple complex medical issues, we will monitor the patient closely. Continue the current medications. Continue symptomatic treatment. Continue with empiric antibiotics. Continue with current medications. I would also recommend lipid panel and baby aspirin if okay with vascular surgery. Otherwise, continue to monitor. Guarded prognosis. Further recommendations to follow. Prognosis extremely guarded. See orders. Continue with empiric antibiotics. MTDD
[2016-07-02] MEDS ORDERED: VANCOMYCIN 1,000 MG in SODIUM CHLORIDE 0.9% 250 ML IVPB SCH ×3 (12:00)
--- NOTE | 2016-07-02 12:24 | ECHOF ---
Referral Reason:pad MEASUREMENTS -------- HEIGHT: 129.5 cm WEIGHT: 59.0 kg BP: 141/77 IVSd: 1.4 cm (0.6 - 1.1) LVIDd: 4.1 cm (3.9 - 5.3) LVPWd: 1.2 cm (0.6 - 1.1) IVSs: 1.7 cm LVIDs: 2.3 cm LVPWs: 1.8 cm Ao Diam: 3.0 cm (2.0 - 3.7) AV Cusp: 1.9 cm (1.5 - 2.6) LA Diam: 2.5 cm (2.7 - 3.8) MV EXCURSION: 17.310 mm (> 18.000) MV EF SLOPE: 106 mm/s (70 - 150) EPSS: 0.8 cm MV E Anibal: 0.71 m/s MV DecT: 162 ms MV A Anibal: 0.65 m/s MV E/A Ratio: 1.09 RAP: 20.00 mmHg RVSP: 54.57 mmHg FINDINGS -------- Sinus rhythm. This was a technically difficult study with suboptimal views. There is mild concentric left ventricular hypertrophy. Overall left ventricular systolic function is mildly impaired with, an EF between 45 - 50 %. Mid to basal inferiorlateral is hypokinetic The right ventricle is normal in size and function. The left atrium is normal in size. The right atrium is normal in size. The aortic valve is trileaflet, and appears structurally normal. No aortic stenosis or regurgitation. The mitral valve leaflets are mildly thickened. Mild mitral regurgitation is present. Moderate tricuspid regurgitation present. There is moderate pulmonary hypertension. The right ventricular systolic pressure, as measured by Doppler, is 54.57mmHg. Pulmonic valve appears structurally normal. The aortic root size is normal. The inferior vena cava is mildly dilated. The pericardium is normal. CONCLUSIONS -------- 1. Sinus rhythm. 2. The mitral valve leaflets are mildly thickened. 3. Mild mitral regurgitation is present. 4. Moderate tricuspid regurgitation present. 5. There is moderate pulmonary hypertension. 6. The right ventricular systolic pressure, as measured by Doppler, is 54.57mmHg. 7. Pulmonic valve appears structurally normal. 8. The aortic root size is normal. 9. The inferior vena cava is mildly dilated. 10. The pericardium is normal. 11. This was a technically difficult study with suboptimal views. 12. There is mild concentric left ventricular hypertrophy. 13. Overall left ventricular systolic function is mildly impaired with, an EF between 45 - 50 %. 14. Mid to basal inferiorlateral is hypokinetic 15. The right ventricle is normal in size and function. 16. The left atrium is normal in size. 17. The right atrium is normal in size. 18. The aortic valve is trileaflet, and appears structurally normal. No aortic stenosis or regurgitation. SPRAY PAINTING MACHINE OPERATOR: Angeles Brown RDCS
--- NOTE | 2016-07-02 18:13 | P.PN ---
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
[2016-07-02] MEDS: CYCLOBENZAPRINE 10 MG TAB PO SCH (20:24)
[2016-07-02] MEDS: cefTRIAXone 2,000 MG in SODIUM CHLORIDE 0.9% 100 ML IVPB SCH (20:24)
--- NOTE | 2016-07-02 22:13 | US ---
EXAMINATION TYPE: US kidneys/renal and bladder DATE OF EXAM: 07/02/2016 8:58 PM COMPARISON: CTA 01 July 2016 CLINICAL HISTORY: UTI, E. Coli Bacteremia. EXAM MEASUREMENTS: Right Kidney: 10.6 x 5.5 x 4.7 cm Left Kidney: 10.6 x 5.3 x 6.5 cm TECHNOLOGIST IMPRESSION: Right Kidney: There is anechoic lesion seen at hilum = 1.5 x 1.1 x 0.9 cm likely extrarenal pelvis Left Kidney: shadowing echogenic foci seen at hilum- 1.1 x 0.9 cm Bladder:distended, wnl Bilateral Jets seen Incidental finding= Free fluid adjacent to liver There is no evidence for hydronephrosis at this point in time. No masses are identified. The urinary bladder is anechoic. Bilateral ureteral jets are seen. IMPRESSION: Left nephrolithiasis, see dictated report of CTA June 2016 Normal Values: Renal Length = 9 - 12cm Bladder Wall: < 0.3cm
--- NOTE | 2016-07-02 22:37 | PN ---
DATE OF SERVICE: 07/02/2016 This 56-year-old woman was admitted with change in mental status, also had a possible UTI with sepsis present on admission. Gram-negative bacilli and E. coli are grown from the culture. Patient also had an iliac occlusion on the left side and patient is being closely monitored. PAST MEDICAL HISTORY: Reviewed. REVIEW OF SYSTEMS: CARDIOVASCULAR: No angina, palpitations. RESPIRATORY: As mentioned earlier. GI: No nausea. : No dysuria. NERVOUS: No numbness or weakness. Current medications are: 1. [place] 7.6 every 6 hours p.r.n. 2. Aspirin 325 mg daily. 3. Rocephin 1 g daily. 4. Neurontin. 5. Dilaudid. 6. Motrin. 7. Narcan. 8. Zofran. 9. Vancomycin. PHYSICAL EXAM: Patient is alert and oriented x3. Pulse 84, blood pressure 130/73, respirations 16, temperature 97.7, pulse ox 98% on room air. HEENT: Conjunctivae normal. NECK: No jugular venous distension. CARDIOVASCULAR: S1 and S2 muffled. RESPIRATORY: Breath sounds diminished in the bases. Bilateral scattered rhonchi and crackles. Abdomen is soft, nontender. No mass palpable. LEGS: Left foot discoloration. NERVOUS SYSTEM: No focal deficits. Labs are platelets 84. Sodium 142, potassium 4.5. ASSESSMENT: 1. Urinary tract infection with possible sepsis, change in mental status with Escherichia coli, present on admission. 2. Ischemic lesions on the left leg with a 1-cm segment of severe narrowing of the left common iliac artery on CTA. 3. Multiple other obstructive lesions on the CTA. 4. Increased CRP and ESR. 5. Hypokalemia. 6. History of nicotine dependence. 7. Increased WBC. 8. Thrombocytopenia. 9. Hypoalbuminemia. 10. History of right foot neuropathy. 11. Possible left lower lobe pneumonia, possibly community acquired, present on admission. 12. FULL CODE. RECOMMENDATIONS AND DISCUSSION: Recommend to continue current medications. Continue with monitoring. Continue with antibiotics. Otherwise, I would also recommend an infectious disease evaluation. Otherwise, guarded prognosis because of multiple complex medical issues. Further recommendations to follow. Continue IV antibiotics.
[2016-07-03] MEDS: HYDROmorphone 1 MG/ML 1 ML SYRINGE IV PRN ×5 (00:56→21:00)
[2016-07-03] MEDS: 0.9% NACL WITH KCL 20 MEQ/L 1,000 ML IV SCH ×3 (06:50→19:10)
[2016-07-03] MEDS: HYDROcodone/APAP 7.5-325MG 1 EACH TAB PO PRN (08:31)
[2016-07-03] MEDS: ASPIRIN 325 MG TAB PO SCH (08:31)
[2016-07-03 09:05] LABS: Aty Lym Flag Slight; CH 29.6; CHCM 33.2; HCT 35.1 % (34.0-46.0); HDW 2.83; HGB 11.9 gm/dL (11.4-16.0); MCH 30.4 pg (25.0-35.0); MCHC 33.8 g/dL (31.0-37.0); MCV 89.7 fL (80.0-100.0); Mean Platelet Volume 8.1; RBC 3.91 m/uL (3.80-5.40); RDW 14.3 % (11.5-15.5); WBC 7.4 k/uL (3.8-10.6); WBC (Perox) 8.34
[2016-07-03 09:40] LABS: Anion Gap 10 mmol/L; Blood Urea Nitrogen 11 mg/dL (7-17); Calcium 7.8 mg/dL (8.4-10.2); Carbon Dioxide 15 mmol/L (22-30); Chloride 117 mmol/L (98-107); Glucose 85 mg/dL (74-99); Non-African American GFR(MDRD) >60 (>60 ml/min/1.73 sqM); Potassium 4.3 mmol/L (3.5-5.1); Sodium 142 mmol/L (137-145)
[2016-07-03 10:31] LABS: Add Differential Manual Differential
[2016-07-03 10:34] LABS: Manual Review Performed; Nucleated Red Blood Cells 0 /100 WBC (0-0); Total Cells Counted 100; Toxic Granulation Present
[2016-07-03] MEDS ORDERED: VANCOMYCIN TROUGH DUE 1 EACH MISC MISCELLANE ONE (11:00)
--- NOTE | 2016-07-03 20:09 | CONS ---
DATE OF CONSULTATION: 07/03/2016 REASON FOR CONSULTATION: Escherichia coli bacteremia. HISTORY OF PRESENT ILLNESS: The patient is a 56-year-old female who was brought into the ER on 06/30/2016 by the EMS with chief complaint of mental status changes. Apparently the patient started having nausea and vomiting on Friday morning that was 2 days prior to presenting to the hospital. According to the , the patient was not acting herself and not eating for the last two days prior to admission to hospital. The patient was complaining of some dizziness. Patient also noted to have left toes to be turning purple. For this reason the patient has been brought into the ER for further evaluation. Patient when evaluated by the ER physician on the admission, patient did not have significant fever and her white count slightly elevated to 11.4. However, urine was significantly positive with LE, 1-8 WBC. Patient did have HIV test which was negative. She did have blood cultures obtained which are coming positive with an Escherichia coli. The patient admitted with Rocephin and vancomycin. I was asked to see the patient for further recommendation regarding antibiotic therapy. On my evaluation today the patient is back to baseline. She knows she is in the hospital. Otherwise has been not feeling well and decreased appetite, but denies significant abdominal pain. No further nausea, vomiting or any diarrhea. Denies significant burning or frequency of urine or any flank pain. Pain has been in her left foot toes, which is slightly purplish. REVIEW OF SYSTEMS: CONSTITUTIONAL: Positive for weakness and some chills at home, but no fever has been recorded here. EYES: No complaint. ENT: No complaint. RESPIRATORY: No complaint. CARDIOVASCULAR: No complaint. GENITOURINARY: As per HPI. GASTROINTESTINAL: No complaint. MUSCULOSKELETAL: No complaint. INTEGUMENTARY: As per HPI. PSYCHOLOGICAL: No complaint. ENDOCRINAL: No complaint. NEUROLOGICAL: No complaint. PAST MEDICAL HISTORY: Significant for peripheral neuropathy and nicotine dependence. PAST SURGICAL HISTORY: Denies any major surgery. SOCIAL HISTORY: Positive for smoking. No drinking or drug use. FAMILY HISTORY: No pertinent findings were noticed. ALLERGIES: No known drug allergies. Medications currently include the patient is on [place], Ventolin, aspirin, Rocephin, Flexeril, Benadryl, Neurontin, Dilaudid, Motrin, Narcan, Zofran. On examination, blood pressure 120/75 with a pulse of 88, temperature 97.6. He is 96% on room air. General description is a middle-age female lying in bed in no distress. HEENT examination showed no pallor or scleral icterus. Oral mucous membrane dry. NECK: Trachea central. There is no thyromegaly. LUNGS: Unlabored breathing. Clear to auscultation anteriorly. HEART: S1, S2, regular rate and rhythm. ABDOMEN: Soft, no tenderness. EXTREMITIES: No edema of the feet. Examination of the left foot toe, slightly bluish and painful to touch. No skin breakdown. No drainage. NEUROLOGICAL: The patient is awake, alert, oriented x3. Mood and affect normal. LABS: Hemoglobin is 11.9, white count 7.4. Admission white count was 11.4 with a BUN of 11, creatinine 0.68. Electrolytes have been normal. UA was positive for blood and urine culture showing an E. coli which is sensitive to pathogen. The patient did have thoracic aorta CT that did show some mild atherosclerotic changes throughout the abdominal aorta without aneurysm, 3 vessel runoff to the right lower extremity with mild atherosclerotic narrowing. There was runoff to the left lower extremity with leg and significant in the left femoroiliac artery. The patient also has evidence of 1.6 cm calculus impacted in the left renal pelvis with obstructive uropathy suggestive of left renal enhancement. DIAGNOSTIC IMPRESSION AND PLAN: Patient with an Escherichia coli bacteremia, source is likely urinary and the patient did have left-sided obstructive uropathy with a stone in the renal pelvis with a component of pyelonephritis though the patient did not seem to have any significant pain to that flank area. PLAN: 1. Rocephin 2 grams IV piggyback daily and Vanco has been discontinued as no Gram-positive has been grown. 2. Will recommend obtaining a Urology evaluation for the stone in the renal pelvis that could be the cause for underlying pyelonephritis. 3. Will follow up on the clinical condition and cultures to further adjust the medication if needed. Thank you for this consultation. I will follow this patient along with you. REJI
[2016-07-03] MEDS: CYCLOBENZAPRINE 10 MG TAB PO SCH (21:00)
[2016-07-03] MEDS: cefTRIAXone 2,000 MG in SODIUM CHLORIDE 0.9% 100 ML IVPB SCH (21:00)
[2016-07-04] MEDS: 0.9% NACL WITH KCL 20 MEQ/L 1,000 ML IV SCH ×4 (07:30→23:09)
[2016-07-04 08:03] LABS: Anion Gap 13 mmol/L; Blood Urea Nitrogen 8 mg/dL (7-17); Calcium 8.2 mg/dL (8.4-10.2); Carbon Dioxide 17 mmol/L (22-30); Chloride 112 mmol/L (98-107); Glucose 96 mg/dL (74-99); Non-African American GFR(MDRD) >60 (>60 ml/min/1.73 sqM); Potassium 4.1 mmol/L (3.5-5.1); Sodium 142 mmol/L (137-145)
[2016-07-04 08:19] LABS: Aty Lym Flag Slight; CH 29.5; CHCM 32.6; HCT 37.4 % (34.0-46.0); HDW 2.76; HGB 12.3 gm/dL (11.4-16.0); MCV 90.9 fL (80.0-100.0); Mean Platelet Volume 9.5; RBC 4.11 m/uL (3.80-5.40); RDW 14.4 % (11.5-15.5); WBC 7.5 k/uL (3.8-10.6); WBC (Perox) 8.44
[2016-07-04] MEDS: HYDROcodone/APAP 7.5-325MG 1 EACH TAB PO PRN ×2 (09:22→17:36)
--- NOTE | 2016-07-04 09:35 | PN ---
DATE OF SERVICE: 07/03/2016 This 56-year-old woman who was admitted with change in mental status, also has possible urinary tract infection with sepsis. The cultures grew E. coli, which were poly sensitive. Patient is on broad-spectrum IV antibiotics. Patient is also seen by Dr. Harmon for left ileofemoral occlusion also. No chest pain, no palpitations. PAST MEDICAL HISTORY: Reviewed. REVIEW OF SYSTEMS: CARDIOVASCULAR: No angina. RESPIRATORY: As mentioned earlier. GI: As mentioned earlier. : No dysuria. NERVOUS SYSTEM: No numbness or weakness. Current medications are reviewed and include: 1. [place] 7.5. 2. Ecotrin 325 mg daily. 3. Rocephin 2 grams daily. 4. Flexeril. 5. Benadryl. 6. Neurontin. 7. Dilaudid. 8. Motrin. 9. Narcan. 10. Zofran. PHYSICAL EXAMINATION: Patient is alert and oriented x3. Pulse 85, blood pressure 120/84, respirations 16, temperature 97 degrees, pulse ox 94% on room air. HEENT: Conjunctivae normal. NECK: No jugular venous distention. CARDIOVASCULAR: S1 and S2, muffled. RESPIRATORY: Breath sounds diminished at the bases. No rhonchi, no crackles. ABDOMEN: Soft, nontender. No mass palpable. LEGS: Left leg ischemic toes present. NERVOUS SYSTEM: No focal deficits. LABS: Platelets 104. Otherwise CO2 is 15, HDL is 17. HIV is not reactive. ASSESSMENT: 1. Urinary tract infection with possible sepsis, Escherichia coli and change in mental status, present on admission. 2. Ischemic lesions of the left leg with embolic lesions with 1 cm segment of severe narrowing of the left common iliac artery on the CTA. 3. Multiple other obstructive lesion on CTA. 4. Increased CRP and ESR. 5. Hypokalemia. 6. History of nicotine dependence. 7. Increased WBC. 8. Thrombocytopenia. 9. Hypoalbuminemia. 10. Right foot neuropathy. 11. Possible left lower lobe pneumonia, possibly community-acquired present on admission. 12. FULL CODE. 13. Mild decreased ejection fraction of 40 to 50%. RECOMMENDATIONS AND DISCUSSION: I recommend to continue current medications, continue symptomatic treatment. Otherwise, 2-D echo was reviewed which showed ejection fraction mildly impaired with ejection fraction of 40 to 50%. I would also recommend cardiology consultation for abnormal 2-D echo. Otherwise continue to monitor. Guarded prognosis. Further recommendations to follow. Please see orders for details.
[2016-07-04 11:33] LABS: Add Differential Manual Differential
[2016-07-04 11:40] LABS: Band Neutrophils % 0.5 %; Nucleated Red Blood Cells 0 /100 WBC (0-0); Total Cells Counted 200
[2016-07-04 11:41] LABS: Manual Review Performed
[2016-07-04] MEDS: ASPIRIN 325 MG TAB PO SCH (12:36)
[2016-07-04] MEDS: GABAPENTIN 400 MG CAP PO PRN ×2 (12:37→22:06)
[2016-07-04] MEDS: KETOROLAC 30 MG/ML 1 ML VIAL IVP PRN (15:35)
--- NOTE | 2016-07-04 15:53 | P.CON ---
Psychiatric Consult - . Consult:: 07/04/16 15:36 Psychiatric consultation notes. Alina Orellana is a 56-year-old white female was seen on psychiatric evaluation where she was on the medical floor where she was admitted following her evaluation in the emergency department. Patient was brought with a history of nausea and vomiting and according to her started him acting in a confused way and per history has not eaten anything since the Friday. Patient has been vomiting since Friday and was getting dehydrated. This morning patient indicates that she for some reason tried to pull of her IV and wanted to go home, apparently called her around 5 in the morning to come and pick her up. Information available from the patient is fairly reliable though there are areas where she is not able to give adequate information for example as to what happened on the day of her admission. Patient indicates that she started having nausea and vomiting and since Friday and acknowledges that she came to the hospital on Friday and vaguely remember the details about the admission. She remembers calling her this morning but unable to figure out why she did so. On direct inquiry denies having had any sleeplessness, or any hallucinatory experience, nor any fears or delusional thinking. For her was in the room with her there has no history of any psychiatric problem in the past and he noticed that she was becoming confused and dehydrated on Friday when he decided to call EMS and bring her to the hospital. During the time of evaluation patient was alert cooperative and fairly pleasant. [place] who is a construction project engineer currently on layoff, and patient is on disability because of spinal scoliosis and chronic back ache. Patient reports that she had some college and was planning to go into nursing and her disability prevented her from pursuing this studies. They have 2 children were doing quite well. There is no family history of any psychiatric problem and patient does not have any substance abuse history, as far as known. Patient reports that she noticed discoloration of her left toes and it is quite painful. Mental status examination. Patient was bed confined and without any psychomotor disturbance. She was quite alert and cooperative and appropriately responding. Her attention and concentration could be aroused and sustained without difficulty. Patient recognizes that she came on Friday but was somewhat unclear as to what day or date today was. Her remote memory functions were intact, recent memory is since Friday somewhat cloudy. Immediate recall was somewhat defective. Speech and thought process without any disturbance. General Information as to current events not disturbed though she took it bit extra time to answer the questions in this area. As noted before patient denies having had any delusions or hallucinations or any disturbance in her sleep, however does not remember as to what prompted her to attend to pull the IV, and also called her to come and pick her up. However at present patient is quite insightful and recognize the need for continued hospitalization and treatment. Assessment. Patient apparently had an encephalopathic episode possibly related to dehydration/infectious process, however currently she seems to be relatively stable and without any confusional state. Her behavior this morning, probably related to disturbance secondary to sedative/hypnotic medications which she probably is still would need because of the severe pain of her foot. Since most of her symptoms requiring psychiatric treatment have been resolved them and not be any need for additional psychotropic medications. If needed would be glad to reevaluate her. Thank you for the referral
[2016-07-04] MEDS: cefTRIAXone 2,000 MG in SODIUM CHLORIDE 0.9% 100 ML IVPB SCH (19:17)
--- NOTE | 2016-07-04 21:12 | PN ---
DATE OF SERVICE: 07/04/2016 This 56-year-old woman was admitted with mental status changes and also possible sepsis. The patient also had E. coli from the blood culture. The most recent cultures are pending at this time. The patient also seen by infectious disease, Dr. Nava as well as Dr. Harmon. The patient also has nephrolithiasis. No evidence of hydronephrosis. With 1.6 cm impacted calculus in the left pelvis. Past medical history reviewed. REVIEW OF SYSTEMS: CARDIOVASCULAR: As mentioned earlier. RESPIRATORY: As mentioned earlier. GASTROINTESTINAL: As mentioned earlier. : No dysuria. Nervous system: No focal deficits. Current medications reviewed and include: 1. [place] 7.5 p.o. 2. Rocephin 2 grams daily. 3. Flexeril 10 milligrams p.o. daily. 4. Neurontin 800 mg p.o. daily. 5. Dilaudid 1 mg q.3 p.r.n. 6. Motrin 400 mg q.6 p.r.n. 8. Narcan 0.2 q2h p.r.n. 9. Zofran. PHYSICAL EXAMINATION: The patient is alert and oriented times three. Pulse is 111, blood pressure 120/84. Respiratory rate 18. Temperature 97.7. Pulse ox 97% on room air. HEENT: Conjunctivae normal. NECK: No jugular venous distention. CARDIOVASCULAR: S1, S2 muffled. RESPIRATORY: Breath sounds diminished at the bases. Bilateral scattered rhonchi and crackles. ABDOMEN: Soft, nontender. No mass palpable. LEGS: No edema. No swelling. CENTRAL NERVOUS SYSTEM: No focal deficits. LABS: CBC, platelet 110, sodium 142, potassium 4.1, CO2 17, stool OB is positive. ASSESSMENT: 1. Urinary tract infection with possible sepsis with Escherichia coli, change in mental status. Present on admission. 2. Ischemic lesion in the left leg with embolic lesions with 1 cm severe narrowing of the left common iliac artery, atherosclerotic in nature 3. 1.6 cm calculus impacted in the left renal pelvis with no evidence of obstruction on the ultrasound with nephrolithiasis. 4. Change in mental status, metabolic encephalopathy. 5. Multiple other obstructive lesions on the CTA peripheral vascular disease. 6. Increased CRP and ESR. 7. Hypokalemia. 8. History of nicotine dependence. 9. Increased WBC. 10. Thrombocytopenia. 11. Hypoalbuminemia. 12. History of right foot neuropathy. 13. Possible left lower lobe pneumonia, possibly community acquired, present on admission. 14. Mild decreased ejection fraction 45 to 50% with chronic systolic dysfunction. 15. FULL CODE. RECOMMENDATIONS AND DISCUSSION: In this 56-year-old woman who presented with multiple complex medical issues we will monitor the patient closely, continue the current medications, continue with symptomatic treatment. Otherwise, at this time, continue to monitor the patient. The patient still has significant pain in the foot. We will continue to monitor, follow up closely with infectious disease. Continue with empiric antibiotics and follow closely with Dr. Harmon also. Guarded prognosis. Further recommendations to follow. MTDD
[2016-07-04] MEDS: CYCLOBENZAPRINE 10 MG TAB PO SCH (22:06)
[2016-07-05] MEDS: HYDROcodone/APAP 7.5-325MG 1 EACH TAB PO PRN ×3 (04:54→18:32)
[2016-07-05] MEDS: 0.9% NACL WITH KCL 20 MEQ/L 1,000 ML IV SCH ×3 (06:03→20:32)
[2016-07-05 08:11] LABS: Basophils # (A) 0.1 k/uL (0-0.2); Basophils % (A) 1 %; CH 29.7; CHCM 32.8; Eosinophils # (A) 0.2 k/uL (0-0.7); Eosinophils % (A) 3 %; HCT 35.7 % (34.0-46.0); HDW 2.81; HGB 11.6 gm/dL (11.4-16.0); Luc # (Auto) 0.33; Luc % (Auto) 4; Lymphocytes # (A) 1.3 k/uL (1.0-4.8); Lymphocytes % (A) 16 %; MCH 29.7 pg (25.0-35.0); MCHC 32.6 g/dL (31.0-37.0); MCV 91.1 fL (80.0-100.0); Mean Platelet Volume 8.3; Monocytes # (A) 0.5 k/uL (0-1.0); Monocytes % (A) 6 %; Neutrophils # (A) 5.7 k/uL (1.3-7.7); Neutrophils % (A) 71 %; RBC 3.91 m/uL (3.80-5.40); WBC 7.9 k/uL (3.8-10.6)
[2016-07-05 08:17] LABS: Anion Gap 10 mmol/L; Blood Urea Nitrogen 15 mg/dL (7-17); Calcium 7.8 mg/dL (8.4-10.2); Carbon Dioxide 15 mmol/L (22-30); Chloride 116 mmol/L (98-107); Glucose 93 mg/dL (74-99); Non-African American GFR(MDRD) >60 (>60 ml/min/1.73 sqM); Potassium 4.6 mmol/L (3.5-5.1); Sodium 141 mmol/L (137-145)
--- NOTE | 2016-07-05 08:58 | PN ---
DATE OF SERVICE: 07/04/2016 Reason for follow-up is an Escherichia coli urinary tract infection with secondary bacteremia. INTERVAL HISTORY: The patient is afebrile. Patient did have slight confusion and agitation noticed this morning. Though seems to have overall improved after Dilaudid had been discontinued. The patient was pleasant at time of my evaluation. Denies any chest pain or shortness of breath or cough. No abdominal pain. Still has some discoloration of her left foot toe. On examination, blood pressure 124/84 with a pulse of 111, temperature 97.7. She is 96% on room air. General description is a middle-age female lying in bed in no distress. RESPIRATORY SYSTEM: Unlabored breathing. Clear to auscultation anteriorly. HEART: S1, S2. Regular rate and rhythm. ABDOMEN: Soft, no tenderness. LABS: Hemoglobin 12.3, white count 7.5 with a BUN of 8, creatinine 0.71. DIAGNOSTIC IMPRESSION AND PLAN: Patient with an Escherichia coli bacteremia secondary to the urinary source likely left-sided pyelonephritis. At this time, the patient will continue Rocephin as this sensitive to pathogen. Then antibiotic will be switched to Cipro 500 mg twice a day for another 2 weeks with close outpatient follow-up. She will benefit from urology elevation as an outpatient for possible lithotripsy. Plan of care was discussed with the admitting physician.
[2016-07-05] MEDS: GABAPENTIN 400 MG CAP PO PRN ×2 (09:50→20:52)
--- NOTE | 2016-07-05 10:55 | P.CONS ---
History of Present Illness - Reason for Consult Consult date: 07/05/16 GI bleed black stool Requesting physician: Christina Garrison - History of Present Illness 56-year-old female admitted June 30 with mental status changes with E. coli bacteremia and urine cultures thought to be related to left-sided pyelonephritis as well as left foot ischemic toe changes.. Consultation requested for black colored bowel movements 2 yesterday. Patient was receiving aspirin therapy for left foot toe ischemic changes. Nursing reports to moderate size black colored bowel movements yesterday. Stool occult blood positive. Hemoglobin over the last few days has averaged between 11 and 12. Current hemoglobin 11.6. Platelet 157 previously 77-110. INR 1.0. No history of GI bleeding, colonoscopy or EGD. Denies epigastric or abdominal pain. Tolerating diet. No changes in appetite. She is scheduled for iliac stenting with thrombectomy for left common iliac high -grade stenosis with thrombus in the next few weeks after completion of her antibiotic therapy and resolution of bacteremia. Review of Systems All systems: negative (See HPI) Past Medical History Past Medical History: Unable to Obtain Additional Past Medical History / Comment(s): foot neuropathy, back pain History of Any Multi-Drug Resistant Organisms: None Reported Past Surgical History: No Surgical Hx Reported Past Anesthesia/Blood Transfusion Reactions: No Reported Reaction Past Psychological History: No Psychological Hx Reported Smoking Status: Current every day smoker Past Alcohol Use History: None Reported Past Drug Use History: None Reported - Past Family History Mother Family Medical History: Hypertension Medications and Allergies Home Medications Medication Instructions Recorded Confirmed Type Albuterol Sulfate [Proair Hfa] 2 puff INHALATION RT-Q6H PRN 06/30/16 06/30/16 History Cyclobenzaprine [Flexeril] 10 mg PO HS 06/30/16 06/30/16 History Gabapentin 800 mg PO TID PRN 06/30/16 06/30/16 History HYDROcodone/APAP 7.5-325MG [[place] 1 tab PO BID PRN 06/30/16 06/30/16 History 7.5-325] diphenhydrAMINE HCL [Benadryl] 50 mg PO TID PRN 06/30/16 06/30/16 History Allergies Allergy/AdvReac Type Severity Reaction Status Date / Time No Known Allergies Allergy Verified 06/30/16 18:37 Physical Exam Vitals: Vital Signs Temp Pulse Resp BP Pulse Ox 07/05/16 07:00 97.5 F L 94 18 124/85 94 L 07/04/16 23:00 96.7 F L 95 16 127/78 95 07/04/16 15:00 97.7 F 111 H 18 124/84 96 Intake and Output 07/04/16 07/05/16 07/05/16 22:59 06:59 14:59 Intake Total 1200 Balance 1200 Intake: IV 1200 0.9% NaCl with KCl 20 Meq 1200 /l 1,000 ml @ 150 mls/hr IV .[id number] [facility] Rx#: [id number] Other: Voiding Method Bedside Commode Bedside Commode Bedside Commode # Voids 2 2 General appearance: The patient is alert, oriented, in no acute distress. HET: Head is normocephalic and atraumatic. Pupils are equal and reactive. Oropharynx is clear without lesions. Neck: Supple without lymphadenopathy. Trachea midline. Heart: S1 S2. Regular rate and rhythm. Lungs: No crackles or wheezes are heard. Abdomen: Soft, nontender, nondistended with bowel sounds. No peritoneal signs. Extremities: 2 left blue-colored ischemic toes. Neurological: No focal deficits. Strength and sensation are grossly intact. Results CBC & Chem 7: 07/05/16 07:29 07/05/16 07:29 Labs: Abnormal Lab Results - Last 24 Hours (Table) 07/04/16 07/04/16 07/05/16 Range/Units 07:29 09:35 07:29 Plt Count 110 L (150-450) k/uL Monocytes # (Manual) 1.1 H (0-1.0) k/uL Chloride 116 H (98-107) mmol/L Carbon Dioxide 15 L (22-30) mmol/L Calcium 7.8 L (8.4-10.2) mg/dL Stool Occult Blood Positive H (Negative) Assessment and Plan (1) Melena Narrative/Plan: 56-year-old female admitted with acute mental status changes with E. coli bacteremia and urine cultures with left-sided pyelonephritis as well as left foot blue toe syndrome with high-grade left common iliac stenosis passing black- colored bowel movements 2 yesterday previously receiving aspirin therapy since discontinued. Previous thrombocytopenia now resolved. Rule out peptic ulcer disease. Status: Acute (2) GI bleed Status: Acute Plan: 1. We'll proceed with EGD evaluation tomorrow. 2. GI prophylaxis. 3. Monitor CBC closely. The honing machine set up operator has discussed the risks, benefits and alternative therapies for the above-mentioned procedure and for both sedation/analgesia as well as necessary blood product administration, if indicated, as they pertain to this patient. The patient has indicated understanding and acceptance of the risks and procedures discussed. Thank you for this kind referral and the opportunity to participate in the care of your patient. This consultation was discussed with Dr. Rosenberg. The impression and plan of care have been directed as dictated.
[2016-07-05] MEDS: KETOROLAC 30 MG/ML 1 ML VIAL IVP PRN (13:32)
--- NOTE | 2016-07-05 19:57 | PN ---
DATE OF SERVICE: 07/05/2016 This 56-year-old woman who was admitted with UTI and sepsis, had blood culture and urine culture, possible E. coli. The most recent cultures are negative at this time. The patient also scheduled for EGD also. No chest pain or palpitation. No fever. On exam, alert and oriented times three. Pulse is 97, blood pressure 120/81, respiration 18, temperature 97.9, pulse ox 98% on room air. HEENT: Conjunctivae normal. NECK: No jugular venous distention. CARDIOVASCULAR: S1, S2 muffled. RESPIRATORY: Breath sounds diminished at the bases. No rhonchi. No crackles. ABDOMEN: Soft, nontender. Legs: Discoloration of the left foot present. CENTRAL NERVOUS SYSTEM: No focal deficits. LABS: Platelets of 157,potassium 4.6, CO2 15. Stool OB is positive. ASSESSMENT: 1. Urinary tract infection with possible sepsis with Escherichia coli, with change in mental status present on admission. 2. Ischemic lesion on the left leg with embolic lesion 1 cm narrowing of the left common iliac artery atherosclerotic in nature, possibly. 3. 1.6 cm calculus intact on the left renal pelvis with no evidence of obstruction on the ultrasound with nephrolithiasis. 4. Change in mental status, metabolic encephalopathy. 5. Melenic stools rule out upper gastrointestinal bleeding. 6. Multiple other obstructive lesions in the CT scan indicating peripheral vascular disease. 8. Hypokalemia. 9. History of nicotine dependence. 10. Increased WBC. 11. Thrombocytopenia improved. 12. Hypoalbuminemia, possibly mild protein calorie malnutrition. 13. History of right foot neuropathy. 14. Possible left lower lobe pneumonia, possibly community acquired present on admission. 15. Mild decreased ejection fraction of 45 to 50% with chronic systolic dysfunction. 16. FULL CODE. RECOMMENDATIONS AND DISCUSSION: In this 56-year-old woman who presented with multiple complex medical issues. We will monitor the patient closely. Continue symptomatic treatment. Otherwise, at this time, I recommend continue with empiric antibiotics. Repeat cultures are negative so far. Psych. Otherwise, gastroenterology evaluation. Possible endoscopies. Guarded prognosis. Further recommendations to follow. Will continue to monitor along with cardiology as well. Further recommendations to follow. MTDD
[2016-07-05] MEDS: cefTRIAXone 2,000 MG in SODIUM CHLORIDE 0.9% 100 ML IVPB SCH (20:28)
[2016-07-05] MEDS: CYCLOBENZAPRINE 10 MG TAB PO SCH (20:29)
[2016-07-05 21:16] VITALS: RESP 16
[2016-07-06] MEDS: 0.9% NACL WITH KCL 20 MEQ/L 1,000 ML IV SCH (07:22)
[2016-07-06 07:59] VITALS: TEMP 98.2
--- NOTE | 2016-07-06 07:59 | PN ---
DATE OF SERVICE: 07/05/2016 Reason for follow-up: E. coli bacteremia secondary to urinary source. INTERVAL HISTORY: The patient is afebrile. She has been breathing comfortably. The patient denies any significant chest discomfort, no cough. No abdominal pain. No diarrhea. Still has pain in the left foot area with necrotic toes. On examination, blood pressure is 125/81 with a pulse of 97, temperature 97.9, she is 92% on room air. General description is a middle aged female lying in bed in no distress. RESPIRATORY SYSTEM: Unlabored breathing. Clear to auscultation anteriorly. HEART: S1, S2 regular rate and rhythm. ABDOMEN: Soft. No tenderness. Left toes with some discoloration but has not extended. LABS: Hemoglobin is 11.6, white count is 7.9 with a BUN of 15, creatinine 0.65. DIAGNOSTIC IMPRESSION AND PLAN: Patient with an Escherichia coli bacteremia secondary to urinary source. The patient is currently on Rocephin that will be continued. Plan is to finish therapy with oral Cipro. Total duration of antibiotic is two weeks with close outpatient follow-up. [facility]
[2016-07-06] MEDS ORDERED: PROPOFOL 10 MG/ML 20 ML VIAL IV ONE (08:07)
[2016-07-06] MEDS ORDERED: LIDOCAINE 1% INJ 10MG/ML (20 ML MDV) ONE (08:07)
[2016-07-06] MEDS ORDERED: SODIUM CHLORIDE 0.9% 1,000 ML IV ONE (08:20)
[2016-07-06] MEDS: HYDROcodone/APAP 7.5-325MG 1 EACH TAB PO PRN (08:45)
--- NOTE | 2016-07-06 08:46 | P.PCN ---
Date of Procedure: 07/06/16 Procedure(s) Performed: Procedure: Esophagogastroduodenoscopy and biopsy. Preoperative diagnosis: GI bleeding with melena. Postoperative diagnosis: Gastritis and duodenitis with no ulcers or active bleeding at the time of this exam. Preparation and sedation: Was provided by anesthesia. Brief clinical history: The patient is a 56-year-old female who was admitted June 30 with mental status changes and was found to have E. coli urinary infection and bacteremia thought to be related to left-sided pyelonephritis, and she also had left foot ischemic toe changes.. Consultation requested for black colored bowel movements 2 the day before yesterday. Patient was receiving aspirin therapy for left foot toe ischemic changes. Nursing reported two moderate size black colored bowel movements the day before yesterday. Stool occult blood positive. Hemoglobin over the last few days has averaged between 11 and 12. Current hemoglobin 11.6. Platelet 157 previously 77-110. INR 1.0. No history of GI bleeding, colonoscopy or EGD. Denies epigastric or abdominal pain. Was tolerating diet with no N/V or changes in appetite. This evaluation is to assess for peptic ulcer disease. Procedure: With the patient on her left lateral decubitus position and after informed consent and adequate sedation, I passed the Olympus-GIF 160 video upper endoscope through the cricopharyngeus down the esophagus. GE junction was around 40-41 cm from the incisors and there was no definite hiatal hernia. The esophagus did not show any erosions, ulcers, strictures or Stephens's esophagus. There were no mucosal tears or varices or any evidence of bleeding. The endoscope was then passed into the stomach which was insufflated with air and inspected in detail including the retroflex view in the cardia. There was some floating heme colored flecks but, otherwise, the gastric secretions were clear in color. The background mucosa showed some mottling and erythema and minimal friability with no ulcers or definite erosions. Pyloric channel did not show any ulcers. Duodenal bulb post bulbar area and descending duodenum showed erythema edema and some friability and occasional short linear erosion with no ulcers or bleeding. I obtained biopsies from the antrum then the endoscope was withdrawn. The patient tolerated the procedure well. Plan: The patient was reassured. Will continue acid suppressive therapy while we await the biopsy results. Further plans will be made based on her course and biopsy results. The patient would probably benefit from a colonoscopy electively as outpatient since she has not had such a prior exam. She will discuss that with you.
--- NOTE | 2016-07-06 09:57 | P.PN ---
Progress Note - Text Events noted/reviewed. Patient with duodenitis and gastritis with no active bleeding Foot remains ischemic but has palpable dorsalis pedis pulse which is diminished. impression 1. ischemic left forefoot secondary to suspected embolization from left common iliac artery lesion 2. urinary tract infection with bacteremia; stable 3. duodenitis/gastritis plan; 1. continue current medical regimen 2. await biopsy results 3. OK to d/c home from vascular standpoint with f/u appointment in office ( Jass) in one week; continue antiplatelet meds if possible 4. patient requires open placement of left iliac covered stent; possible right to left femoral to femoral crossover bypass for relief of symptoms
[2016-07-06 11:55] VITALS: BP 124/82; PULSE 118
--- NOTE | 2016-07-06 15:30 | DS ---
DATE OF ADMISSION: 06/30/2016 DATE OF DISCHARGE: 07/06/2016 FINAL DIAGNOSES: 1. Urinary tract infection with possible sepsis with Escherichia coli with change in mental status present on admission. 2. Ischemic lesion of the left leg with embolic lesions with 1 cm narrowing of the left common iliac artery with atherosclerotic nature possibly. 3. 1.6 cm calculus intact on the left renal pelvis with no evidence of obstruction in the ultrasound with nephrolithiasis. 4. Change in mental status, metabolic encephalopathy. 5. Melanotic stools. Rule out upper GI bleeding. 6. Multiple other obstructive lesions in the CAT scan indicating peripheral vascular disease. 7. Hypokalemia. 8. History of nicotine dependence. 9. Increased WBC. 10. Thrombocytopenia, improved. 11. Hypoalbuminemia with mild to moderate protein calorie malnutrition. 12. History of right foot neuropathy. 13. Possible left lower lobe pneumonia, possibly community acquired, present on admission. 14. Mild ejection fraction about 45 to50% with chronic systolic dysfunction with chronic congestive heart failure. 15. FULL CODE. 16. Gastritis and duodenitis. DISCHARGE DISPOSITION: The patient will be discharged in a stable condition with guarded prognosis. Total time taken [address] Harmon and multiple other consultants cleared the patient for discharge. HISTORY OF PRESENT ILLNESS: This 56-year-old woman with a past medical history of multiple medical problems as mentioned being followed by Dr. Palacio in the outpatient setting presented with UTI and sepsis. The patient also had change in mental status. ischemic lesion in the left leg. Evaluation showed 1 cm narrowing of the left common iliac for iliac disease. The patient also had nephrolithiasis and UTI with sepsis also. Dr. Harmon recommended intervention later. Treated symptomatically. Patient also had an episode of melenic stools. EGD was done by Dr. Landin, which showed gastritis and duodenitis with no evidence of active ulcers. On exam, vitals are stable. CARDIOVASCULAR: S1, S2. ABDOMEN: Soft. NERVOUS SYSTEM: No focal deficits. Left leg ischemic skin lesions present. DISCHARGE ADVICE: 1. Diet is cardiac. 2. Activity limited until follow-up. 3. No smoking. 4. Follow with Dr. Palacio in 2 to 3 days. 5. Follow with Dr. Harmon and Dr. Nava as advised. MEDICATIONS: 1. Xanax 0.25 t.i.d. p.r.n. for anxiety. 2. Albuterol 2 puffs q.i.d. and p.r.n. 3. Ecotrin 81 mg p.o. daily. 4. Cipro 500 mg p.o. b.i.d. for 2 weeks. 5. Flexeril 10 mg q.h.s. 6. Gabapentin 800 mg p.o. t.i.d. 7. [employer] 7.5 mg q.6 p.r.n. 8. Habitrol 14 daily. 9. Zofran 4 mg q.8 p.r.n. 10. Protonix 40 mg p.o. daily. 11. Benadryl 50 mg t.i.d. p.r.n. Once again, the patient will be discharged in a stable condition with guarded prognosis. MTDD
--- NOTE | 2016-07-10 10:38 | P.ARTDOP ---
Arterial Doppler LOWER EXTREMITY ARTERIAL DOPPLER: DATE OF SERVICE: 07/02/2016 Reason for study: Painful toes. Doppler waveforms: Multiphasic throughout on the right and to the popliteal on the left and atypical below.. Pulse volume recording: Mild blunting distally on the left.. Pressure gradients: Above the low thigh on the left Ankle-brachial indices: Greater than 1 on the right.. 0.74 on the left. Toe pressures: [] on the right, [] on the left Impression: Normal right side. Mild to moderate left fem-pop disease. Clinical correlation recommended..
== END 2016-07-06 15:03 | disposition home or self-care (01) | DRG 871 ==
LOC: EC 15:26 → 5MS5E 20:29
PROVIDERS: ADMIT Internal Medicine; ATTEND Internal Medicine
PROC: 0DB68ZX Excision of Stomach, Via Natural or Artificial Opening Endoscopic, Diagnostic (ICD-10-PCS; principal; 2016-07-06 08:00)
DX: A41.51 Sepsis due to Escherichia coli [E. coli] (principal); G93.41 Metabolic encephalopathy; I75.022 Atheroembolism of left lower extremity; J18.9 Pneumonia, unspecified organism; D69.6 Thrombocytopenia, unspecified; E44.0 Moderate protein-calorie malnutrition; I50.22 Chronic systolic (congestive) heart failure; L97.929 Non-pressure chronic ulcer of unspecified part of left lower leg with unspecified severity; N12 Tubulo-interstitial nephritis, not specified as acute or chronic; K92.1 Melena; G62.9 Polyneuropathy, unspecified; N20.0 Calculus of kidney; E87.6 Hypokalemia; N13.9 Obstructive and reflux uropathy, unspecified; E86.0 Dehydration; K29.70 Gastritis, unspecified, without bleeding; K29.80 Duodenitis without bleeding; G89.29 Other chronic pain; I73.9 Peripheral vascular disease, unspecified; M41.9 Scoliosis, unspecified; Z87.891 Personal history of nicotine dependence; Z79.899 Other long term (current) drug therapy
CPT/HCPCS: 36415; 43239; 70450; 71020; 71275; 75635; 76770; 80048; 80051; 80053; 80061; 80306; 81001; 81025; 82140; 82272; 82550; 82553; 83605; 83735; 84484; 85025; 85610; 85652; 85730; 86038; 86140; 86431; 87040; 87077; 87086; 87186; 87389; 88305; 88342; 93005; 93306; 93923; 96361; 99153; 99285

== ENCOUNTER 2016-07-08 18:16 | Inpatient (IN) | payer MEDICARE, BC ==
[2016-07-08] MEDS ORDERED: ALBUTEROL NEBULIZED 2.5 MG/3 ML INHALATION STA (18:35)
[2016-07-08] MEDS ORDERED: SODIUM CHLORIDE 0.9% 1,000 ML IV STA ×2 (18:35)
[2016-07-08] MEDS ORDERED: SODIUM CHLORIDE 0.9% 500 ML IV STA (18:35)
[2016-07-08] MEDS ORDERED: IPRATROPIUM 0.5 MG/2.5 ML NEBU INHALATION STA ×2 (18:35→20:31)
--- NOTE | 2016-07-08 19:29 | XR ---
EXAMINATION TYPE: XR chest 1V portable DATE OF EXAM: 07/08/2016 7:17 PM HISTORY: Shortness of breath. COMPARISON: 06/30/16 TECHNIQUE: Single view of the chest is submitted. FINDINGS: Demonstrated are scattered senescent parenchymal change. There is patchy perihilar infiltrates as well as bibasilar infiltrates and small effusions. The heart is stable. Hilar and mediastinal structures are within normal limits. Degenerative changes are seen of the dorsal spine. IMPRESSION: 1. Correlate for pneumonia.
[2016-07-08] MEDS ORDERED: PNEUMONIA PROTOCOL UTILIZED 1 EACH MISC PO PRN (19:33)
[2016-07-08] MEDS ORDERED: LEVOFLOXACIN 750MG-D5W PMX 750 MG in DEXTROSE/WATER 1 150ML.BAG IVPB STA (19:33)
[2016-07-08] MEDS ORDERED: PIPERACILLIN-TAZOBACTAM 3.375 GM in DEXTROSE/WATER 1 50ML.BAG IVPB STA (19:33)
--- NOTE | 2016-07-08 19:37 | ED ---
General Adult HPI - General Chief complaint: Shortness of Breath Stated complaint: diff breathing Time Seen by Provider: 07/08/16 18:34 Source: patient, family, RN notes reviewed, old records reviewed Mode of arrival: wheelchair Limitations: no limitations - History of Present Illness Initial comments: This is a 56-year-old female here for evaluation. This patient presents reevaluation shortness of breath, severe shortness of breath cough and congestion. Patient has recent hospital admission with prolonged stay for evaluation of heart disease and lower extremity edema. Patient was also told she has COPD. Patient is not on home O2, she woke up not feeling well checked her oxygen and was found to be in the 60s. Upon arrival to emergency room oxygen sodium is low, patient unable to give history secondary to clinical status, patient did contract with oxygen. Patient not complaining of chest pain , she does have lower extremity edema - Related Data Home Medications Medication Instructions Recorded Confirmed Albuterol Sulfate [Proair Hfa] 2 puff INHALATION RT-Q6H PRN 06/30/16 07/08/16 Cyclobenzaprine [Flexeril] 10 mg PO HS 06/30/16 07/08/16 Gabapentin 800 mg PO TID PRN 06/30/16 07/08/16 diphenhydrAMINE HCL [Benadryl] 50 mg PO TID PRN 06/30/16 07/08/16 Previous Rx's Medication Instructions Recorded Ciprofloxacin HCl [Cipro] 500 mg PO Q12HR #28 tablet 07/04/16 ALPRAZolam [Xanax] 0.25 mg PO TID PRN #30 tab 07/06/16 HYDROcodone/APAP 7.5-325MG [[place] 1 tab PO Q6H PRN #40 tab 07/06/16 7.5-325] Nicotine 14Mg/24Hr Patch [Habitrol 1 patch TRANSDERM DAILY #30 patch 07/06/16 14Mg/24Hr Patch] Pantoprazole Sodium [Protonix] 40 mg PO DAILY #30 tablet. 07/06/16 Allergies Allergy/AdvReac Type Severity Reaction Status Date / Time aspirin AdvReac Bloody Verified 07/08/16 18:57 Stool Review of Systems ROS Statement: Those systems with pertinent positive or pertinent negative responses have been documented in the HPI. ROS Other: All systems not noted in ROS Statement are negative. Past Medical History Past Medical History: Unable to Obtain Additional Past Medical History / Comment(s): foot neuropathy, back pain History of Any Multi-Drug Resistant Organisms: None Reported Past Surgical History: No Surgical Hx Reported Past Anesthesia/Blood Transfusion Reactions: No Reported Reaction Past Psychological History: No Psychological Hx Reported Smoking Status: Former smoker Past Alcohol Use History: None Reported Past Drug Use History: None Reported - Past Family History Mother Family Medical History: Hypertension General Exam Limitations: no limitations General appearance: alert, in no apparent distress, anxious, in distress Head exam: Present: atraumatic, normocephalic, normal inspection Eye exam: Present: normal appearance, PERRL, EOMI. Absent: scleral icterus, conjunctival injection, periorbital swelling ENT exam: Present: normal exam, mucous membranes moist Neck exam: Present: normal inspection. Absent: tenderness, meningismus, lymphadenopathy Respiratory exam: Present: normal lung sounds bilaterally, wheezes, accessory muscle use, decreased breath sounds, prolonged expiratory. Absent: respiratory distress, rhonchi, stridor Cardiovascular Exam: Present: regular rate, tachycardia, normal heart sounds. Absent: systolic murmur, diastolic murmur, rubs, gallop, clicks GI/Abdominal exam: Present: soft, normal bowel sounds. Absent: distended, tenderness, guarding, rebound, rigid Extremities exam: Present: normal inspection, full ROM, normal capillary refill. Absent: tenderness, pedal edema, joint swelling, calf tenderness Back exam: Present: normal inspection Neurological exam: Present: alert, oriented X3, CN II-XII intact Psychiatric exam: Present: normal affect, normal mood Skin exam: Present: warm, dry, intact, normal color. Absent: rash Course Vital Signs 07/08/16 07/08/16 07/08/16 18:30 19:07 19:33 Temperature 97.8 F Pulse Rate 138 H 92 126 H Respiratory 24 Rate Blood Pressure 118/67 O2 Sat by Pulse 72 L Oximetry 07/08/16 07/08/16 20:27 20:29 Temperature Pulse Rate 136 H Respiratory 22 Rate Blood Pressure 179/84 O2 Sat by Pulse 78 L 91 L Oximetry - Reevaluation(s) Reevaluation #1: 07/08/16 19:36 Patient with mild improvement after prolonged bridge area Reevaluation #2: 07/08/16 20:35 patient improves with O2, but worse when off breathing treatment, requiring high O2 for maintaining pulse ox EKG Findings - EKG Comments: EKG Findings:: EKG shows sinus tachycardia rate 136, LA 134, QRS 70, QTc 427 Medical Decision Making - Medical Decision Making 56 female here for evaluation. Patient presents here for evaluation of shortness of breath cough and congestion, positive recent hospital admission, patient does have pneumonia on x-ray. She'll be put on serial breathing treatments, patient is a history of COPD. As well as broad-spectrum antibiotics for nosocomial acquired pneumonia. Patient initially severely hypoxic, did correct with oxygen - Lab Data Result diagrams: 07/08/16 19:29 07/08/16 19:29 Lab Results 07/08/16 07/08/16 07/08/16 Range/Units 19:29 19:29 19:29 WBC 12.1 H (3.8-10.6) k/uL RBC 4.01 (3.80-5.40) m/uL Hgb 11.6 (11.4-16.0) gm/dL Hct 35.5 (34.0-46.0) % MCV 88.5 (80.0-100.0) fL MCH 28.8 (25.0-35.0) pg MCHC 32.6 (31.0-37.0) g/dL RDW 15.7 H (11.5-15.5) % Plt Count 266 (150-450) k/uL Neutrophils % 79 % Lymphocytes % 12 % Monocytes % 6 % Eosinophils % 2 % Basophils % 0 % Neutrophils # 9.6 H (1.3-7.7) k/uL Lymphocytes # 1.5 (1.0-4.8) k/uL Monocytes # 0.7 (0-1.0) k/uL Eosinophils # 0.2 (0-0.7) k/uL Basophils # 0.0 (0-0.2) k/uL PT (9.0-12.0) sec INR (<1.1) APTT (22.0-30.0) sec D-Dimer (<0.60) mg/L FEU Sodium (137-145) mmol/L Potassium (3.5-5.1) mmol/L Chloride (98-107) mmol/L Carbon Dioxide (22-30) mmol/L Anion Gap mmol/L BUN (7-17) mg/dL Creatinine (0.52-1.04) mg/dL Est GFR (MDRD) Af Amer (>60 ml/min/1.73 sqM) Est GFR (MDRD) Non-Af (>60 ml/min/1.73 sqM) Glucose (74-99) mg/dL Plasma Lactic Acid [place] 1.3 (0.7-2.0) mmol/L Calcium (8.4-10.2) mg/dL Magnesium (1.6-2.3) mg/dL Total Bilirubin (0.2-1.3) mg/dL AST (14-36) U/L ALT (9-52) U/L Alkaline Phosphatase (38-126) U/L Total Creatine Kinase 92 (30-135) U/L CK-MB (CK-2) 1.7 (0.0-2.4) ng/mL CK-MB (CK-2) Rel Index 1.8 Troponin I 0.133 H* (0.000-0.034) ng/mL NT-Pro-B Natriuret Pep pg/mL Total Protein (6.3-8.2) g/dL Albumin (3.5-5.0) g/dL 07/08/16 07/08/16 07/08/16 Range/Units 19:29 19:29 19:29 WBC (3.8-10.6) k/uL RBC (3.80-5.40) m/uL Hgb (11.4-16.0) gm/dL Hct (34.0-46.0) % MCV (80.0-100.0) fL MCH (25.0-35.0) pg MCHC (31.0-37.0) g/dL RDW (11.5-15.5) % Plt Count (150-450) k/uL Neutrophils % % Lymphocytes % % Monocytes % % Eosinophils % % Basophils % % Neutrophils # (1.3-7.7) k/uL Lymphocytes # (1.0-4.8) k/uL Monocytes # (0-1.0) k/uL Eosinophils # (0-0.7) k/uL Basophils # (0-0.2) k/uL PT 12.3 H (9.0-12.0) sec INR 1.2 (<1.1) APTT 24.4 (22.0-30.0) sec D-Dimer 10.81 H (<0.60) mg/L FEU Sodium 142 (137-145) mmol/L Potassium 3.4 L (3.5-5.1) mmol/L Chloride 110 H (98-107) mmol/L Carbon Dioxide 20 L (22-30) mmol/L Anion Gap 12 mmol/L BUN 12 (7-17) mg/dL Creatinine 0.80 (0.52-1.04) mg/dL Est GFR (MDRD) Af Amer >60 (>60 ml/min/1.73 sqM) Est GFR (MDRD) Non-Af >60 (>60 ml/min/1.73 sqM) Glucose 113 H (74-99) mg/dL Plasma Lactic Acid [place] (0.7-2.0) mmol/L Calcium 8.3 L (8.4-10.2) mg/dL Magnesium 1.6 (1.6-2.3) mg/dL Total Bilirubin 0.6 (0.2-1.3) mg/dL AST 27 (14-36) U/L ALT 48 (9-52) U/L Alkaline Phosphatase 79 (38-126) U/L Total Creatine Kinase (30-135) U/L CK-MB (CK-2) (0.0-2.4) ng/mL CK-MB (CK-2) Rel Index Troponin I (0.000-0.034) ng/mL NT-Pro-B Natriuret Pep 01724 pg/mL Total Protein 5.1 L (6.3-8.2) g/dL Albumin 2.8 L (3.5-5.0) g/dL - Radiology Data Radiology results: report reviewed (Chest x-ray two-view positive for pneumonia , CTa pending), image reviewed Critical Care Time Critical Care Time: Yes Total Critical Care Time: 31 Disposition Clinical Impression: Acute exacerbation of chronic obstructive airways disease, Acute respiratory failure, Nosocomial pneumonia, Hypoxia, NSTEMI (non-ST elevated myocardial infarction), Pulmonary embolism Disposition: ADMITTED IP TO THIS [facility] Condition: Critical
[2016-07-08 19:48] LABS: Basophils % (A) 0 %; CH 30.2; CHCM 34.5; Eosinophils # (A) 0.2 k/uL (0-0.7); Eosinophils % (A) 2 %; HCT 35.5 % (34.0-46.0); HDW 3.15; HGB 11.6 gm/dL (11.4-16.0); Luc # (Auto) 0.15; Luc % (Auto) 1; Lymphocytes # (A) 1.5 k/uL (1.0-4.8); Lymphocytes % (A) 12 %; MCH 28.8 pg (25.0-35.0); MCHC 32.6 g/dL (31.0-37.0); MCV 88.5 fL (80.0-100.0); Mean Platelet Volume 8.2; Monocytes # (A) 0.7 k/uL (0-1.0); Monocytes % (A) 6 %; Neutrophils # (A) 9.6 k/uL (1.3-7.7); Neutrophils % (A) 79 %; RBC 4.01 m/uL (3.80-5.40); RDW 15.7 % (11.5-15.5); WBC 12.1 k/uL (3.8-10.6); WBC (Perox) 13.12
[2016-07-08 20:02] LABS: ALT 48 U/L (9-52); AST 27 U/L (14-36); Alkaline Phosphatase 79 U/L (38-126); Anion Gap 12 mmol/L; Blood Urea Nitrogen 12 mg/dL (7-17); Calcium 8.3 mg/dL (8.4-10.2); Carbon Dioxide 20 mmol/L (22-30); Chloride 110 mmol/L (98-107); Glucose 113 mg/dL (74-99); Magnesium 1.6 mg/dL (1.6-2.3); Non-African American GFR(MDRD) >60 (>60 ml/min/1.73 sqM); Potassium 3.4 mmol/L (3.5-5.1); Sodium 142 mmol/L (137-145); Total Bilirubin 0.6 mg/dL (0.2-1.3); Total Protein 5.1 g/dL (6.3-8.2)
[2016-07-08] MEDS ORDERED: POTASSIUM BICARB-CITRIC ACID 25 MEQ TABLET.EFF PO STA (20:10)
[2016-07-08 20:23] LABS: Creatine Kinase MB 1.7 ng/mL (0.0-2.4)
[2016-07-08] MEDS ORDERED: IPRATROPIUM-ALBUTEROL 3 ML NEB INHALATION PRN (20:26)
[2016-07-08 20:28] LABS: INR 1.2 (<1.1)
[2016-07-08 20:29] LABS: Partial Thromboplastin Time 24.4 sec (22.0-30.0); Prothrombin Time 12.3 sec (9.0-12.0)
[2016-07-08] MEDS ORDERED: RX INFO: IV CONTRAST WAS GIVEN 1 EACH MISC MISCELLANE PRN (20:30)
[2016-07-08] MEDS ORDERED: HEPARIN SODIUM,PORCINE 5,000 UNIT/ML 1 ML VIAL IV ONE (20:31)
[2016-07-08] MEDS ORDERED: LEVALBUTEROL NEB 1.25 MG/3 ML AMP INHALATION STA (20:31)
[2016-07-08] MEDS ORDERED: HEPARIN SODIUM,PORCINE 5,000 UNIT/ML 1 ML VIAL IV PRN ×2 (20:31→20:32)
[2016-07-08 20:32] LABS: Troponin I 0.133 ng/mL (0.000-0.034)
[2016-07-08] MEDS ORDERED: HEPARIN SODIUM,PORCINE 10,000 UNIT/ML 1 ML VIAL IV ONE (20:32)
[2016-07-08] MEDS ORDERED: HEPARIN SODIUM,PORCINE/D5W PMX 25,000 UNIT in DEXTROSE/WATER 1 500ML.BAG IV SCH (20:45)
--- NOTE | 2016-07-08 21:06 | CT ---
EXAMINATION TYPE: CT angio chest DATE OF EXAM: 07/08/2016 8:53 PM COMPARISON: NONE HISTORY: Shortness of breath. CT DLP: 299.00 mGycm CONTRAST: CT chest with contrast and 3D reconstruction with MIP imaging is performed with IV Contrast, patient injected with 80 mL of Omnipaque 350. Contrast-enhanced CT of the chest was performed through the course of the pulmonary arteries with geeta g and mediastinal window settings submitted. 3D reconstruction with MIP imaging was also performed. PULMONARY ARTERIES: There is filling defect noted within a tertiary branch left upper lobe image 44 a s well as a secondary branch of the left upper lobe image 41 right lower lobe pulmonary arterial fill ing defect also noted seen best on image 81. No evidence for embolus of the main pulmonary arteries o r sagittal component. LUNGS: Moderate right-sided pleural effusion with smaller left-sided pleural effusion. Associated com pressive atelectasis. Extensive emphysematous changes as well as moderately severe fibrosis. MEDIASTINUM: Thoracic aorta is of normal caliber . The heart is mildly enlarged. No evidence for me diastinal mass. No mediastinal lymph nodes greater than 1cm. HILAR STRUCTURES: No evidence for mass. No hilar lymph nodes greater than 1 cm. UPPER ABDOMEN: No significant abnormality is seen. IMPRESSION: 1. Findings compatible with mild pulmonary embolism. 2. Bilateral pleural effusions with compressive atelectasis. 3. Coarse interstitial markings likely reflect underlying fibrosis. Interstitial component not exclud ed.
[2016-07-08] MEDS ORDERED: LORazepam 2 MG/ML SYRINGE IV STA (21:21)
[2016-07-08] MEDS: HEPARIN SODIUM,PORCINE/D5W PMX 25,000 UNIT in DEXTROSE/WATER 1 500ML.BAG IV SCH (21:28)
[2016-07-08] MEDS: SODIUM CHLORIDE 0.9% 1,000 ML IV SCH (21:53)
[2016-07-09] MEDS: ALPRAZolam 0.5 MG TAB PO PRN ×2 (01:58→08:49)
[2016-07-09] MEDS: IPRATROPIUM-ALBUTEROL 3 ML NEB INHALATION SCH ×2 (02:50→08:31)
[2016-07-09] MEDS: PIPERACILLIN-TAZOBACTAM 3.375 GM in DEXTROSE/WATER 1 50ML.BAG IVPB SCH ×3 (02:51→21:07)
[2016-07-09] MEDS ORDERED: LORazepam 2 MG/ML SYRINGE IV PRN (03:11)
[2016-07-09] MEDS: SODIUM CHLORIDE 0.9% 1,000 ML IV SCH ×2 (06:24→21:09)
[2016-07-09 07:18] LABS: Anion Gap 12 mmol/L; Blood Urea Nitrogen 11 mg/dL (7-17); Carbon Dioxide 21 mmol/L (22-30); Chloride 109 mmol/L (98-107); Glucose 120 mg/dL (74-99); Non-African American GFR(MDRD) >60 (>60 ml/min/1.73 sqM); Potassium 3.8 mmol/L (3.5-5.1); Sodium 142 mmol/L (137-145)
[2016-07-09] MEDS ORDERED: ENOXAPARIN 40 MG/0.4 ML SYRINGE SQ SCH (09:00)
[2016-07-09] MEDS: LEVALBUTEROL NEB 1.25 MG/3 ML AMP INHALATION PRN (11:40)
[2016-07-09] MEDS: IPRATROPIUM 0.5 MG/2.5 ML NEBU INHALATION SCH ×3 (11:40→19:21)
[2016-07-09] MEDS ORDERED: FUROSEMIDE 10 MG/ML 4 ML VIAL IV STA (12:46)
[2016-07-09] MEDS ORDERED: VANCOMYCIN 1,000 MG in SODIUM CHLORIDE 0.9% 250 ML IVPB STA (12:46)
--- NOTE | 2016-07-09 12:47 | P.CNPUL ---
History of Present Illness Consult date: 07/09/16 Reason for consult: dyspnea, COPD History of present illness: This is a 56-year-old female patient who presented emergency department after 48 hours of being discharged from the hospital for worsening shortness of breath and respiratory failure. The patient was in significant respiratory distress at time of arrival tachypneic and tachycardic. She was briefly tried on BiPAP which she failed and she was unable to tolerate and based on that she was placed in the 100% nonrebreather facemask. A CT angios the chest was done which was officially reported as having questionable filling defect in the secondary and tertiary branches of the left upper lobe pulmonary artery however , the striking abnormalities on the CT angios the chest is extensive emphysema and increased interstitial prominence bilaterally more so on the right and development of compressive atelectasis moderate-sized right-sided pleural effusion and this is in comparison to the previous CAT scan imaging there was an approximately a week ago. All these findings are rather new and that is no evidence of any pulmonary fibrosis and the patient has some background advanced COPD. The patient denies having any chest pain. She has a congested cough that she is unable to bring up much sputum. No fever. No chills. No aspiration. No pleurisy. Denies having any recurrent bouts of pneumonias. Denies being on home oxygen Upon review of her medical records, the patient was in the hospital approximately a week ago for various complications. She was having issues with GI bleeding and as part of further investigation the patient had an EGD that showed gastritis and duodenitis pH was also found to have ischemic toes in her left foot. Based on that, I vascular consultation was obtained and the patient was diagnosed having gangrenous toes probably an embolic phenomenon and it was thought that the embolism is from the extensive peripheral vascular disease that the patient had specially involving the left common iliac artery. The patient was seen by vascular surgery and there were some plans to consider stenting of the left iliac with subsequent fem-fem bypass surgery and this was supposed to be done outpatient basis. Meanwhile, several toes in the left lower extremity remains quite gangrenous at this point. Note that the patient had a CTA done on 07/01/2016 and it showed atherosclerosis involving the abdominal aorta without aneurysm, atherosclerosis involving the right common iliac artery. Severe narrowing within the left common iliac artery specially at a 1 cm segment involving the vessel. The CT also showed a 1.6 cm calculus in the left renal pelvis with obstructive uropathy due to asymmetric enhancement of the left kidney. The bile duct was slightly dilated at 9 mm and the patient had a mildly enlarged (aortic valve measuring 1.2 cm in size. COPD and diffuse emphysema was noted in lung windows without evidence of any pulmonary fibrosis. The echocardiogram was also completed and it showed a relatively preserved LV function with an ejection fraction of around 45-50%. There was moderate tricuspid regurgitation and moderate pulmonary hypertension with an estimated PA pressure of around 54 mmHg. No other significant valvular abnormalities noted. Review of Systems The patient is significant respiratory distress at this point and she is unable to speak a full sentences. She is using some excessive muscle breathing while being on the percent nonrebreather facemask. Past Medical History Past Medical History: Unable to Obtain Additional Past Medical History / Comment(s): Peripheral vascular disease with a significant stenosis of the left common iliac artery, gangrenous toes involving the left foot, advanced COPD, left renal calculus, peripheral neuropathy, chronic back pain , moderate degree of pulmonary hypertension based on echocardiogram, mild systolic dysfunction with an ejection fraction of 45-50% , GI bleeding secondary to gastritis and duodenitis as evident on the EGD, recent E. coli urine checked infection History of Any Multi-Drug Resistant Organisms: None Reported Past Surgical History: No Surgical Hx Reported Additional Past Surgical History / Comment(s): EGD performed during the hospitalization in June 2016 and the findings revealing duodenitis and gastritis Past Anesthesia/Blood Transfusion Reactions: No Reported Reaction Past Psychological History: No Psychological Hx Reported Smoking Status: Former smoker Past Alcohol Use History: None Reported Past Drug Use History: None Reported - Past Family History Mother Family Medical History: Hypertension Medications and Allergies Home Medications Medication Instructions Recorded Confirmed Type Albuterol Sulfate [Proair Hfa] 2 puff INHALATION RT-Q6H PRN 06/30/16 07/08/16 History Cyclobenzaprine [Flexeril] 10 mg PO HS 06/30/16 07/08/16 History Gabapentin 800 mg PO TID PRN 06/30/16 07/08/16 History diphenhydrAMINE HCL [Benadryl] 50 mg PO TID PRN 06/30/16 07/08/16 History Allergies Allergy/AdvReac Type Severity Reaction Status Date / Time aspirin AdvReac Bloody Verified 07/08/16 18:57 Stool Physical Exam Vitals: Vital Signs Temp Pulse Pulse Resp BP BP Pulse Ox 07/09/16 11:57 131 H 187/91 94 L 07/09/16 11:48 130 H 07/09/16 11:40 134 H 07/09/16 08:42 130 H 07/09/16 08:32 130 H 07/09/16 08:00 98.9 F 132 H 161/91 91 L 07/09/16 03:50 126 H 26 H 07/09/16 03:49 98.1 F 126 H 26 H 155/93 95 07/09/16 00:00 98.3 F 132 H 24 139/82 94 L 07/08/16 20:40 95 07/08/16 20:29 136 H 22 179/84 91 L 07/08/16 20:27 78 L 07/08/16 20:26 98.3 F 133 H 22 170/84 94 L Intake and Output 07/08/16 07/09/16 07/09/16 22:59 06:59 14:59 Intake Total 152.694 Output Total 1000 2600 Balance -1000 152.694 -2600 Intake: Intake, IV Titration 152.694 Amount Heparin Sodium,Porcine/ 152.694 D5w Pmx 25,000 unit In Dextrose/Water 1 500ml. bag @ 18 UNITS/KG/HR 21. 71 mls/hr IV .Q23H2M [facility] Rx#:[id number] Output: Urine 1000 2600 Other: Voiding Method Indwelling Catheter Indwelling Catheter Weight 60.328 kg The patient is in significant degree of respiratory distress pH is using accessory muscles of breathing at this point on 100% nonrebreather facemask.Head exam was generally normal. There was no scleral icterus or corneal arcus. Mucous membranes were moist. Neck is supple there is no JVDs no goiter or neck masses. The patient's lips are rather cyanotic at this point. Mucous membranes are extremely dry and the patient has poor oral dental hygiene. Lung sounds are markedly diminished in the right lung base along with some dullness. There is diminished breath sounds bilaterally and there is somewhat pronation of expiratory phase of breathing and scattered external wheezes. Heart sounds are tachycardic, positive S1-S2 and there is no S3 no S4 no murmurs could be appreciated.Abdominal exam revealed normal bowel sounds. The abdomen was soft, non-tender, and without masses, organomegaly, or appreciable enlargement of the abdominal aorta. Extremities shows skin mottling over the thighs bilaterally. Dorsalis pedis can be palpated bilaterally. The first second and the fifth toe are gangrenous and it patient has a dry gangrene. There is poor capillary refill. Trace edema. No cyanosis or clubbing. Results - Laboratory Findings CBC and BMP: 07/08/16 19:29 07/09/16 02:55 PT/INR, D-dimer PT 12.3 sec (9.0-12.0) H 07/08/16 19:29 INR 1.2 (<1.1) 07/08/16: D-Dimer 10.81 mg/L FEU (<0.60) H 07/08/16 19:29 Abnormal lab findings: Abnormal Labs 07/09/16 07/09/16 07/09/16 02:55 02:55 09:50 APTT 49.4 H Chloride 109 H Carbon Dioxide 21 L Glucose 120 H Calcium 8.0 L Troponin I 0.123 H* - Diagnostic Findings CT scan - chest: image reviewed Assessment and Plan Plan: Assessment 1 acute hypoxic respiratory failure. The patient is currently on 100% nonrebreather facemask and she was unable to tolerate BiPAP. There is significant otherwise on the computed tomography scan of the chest. There is increased infiltration of the right lung compared to the left in addition to extensive baseline emphysematous change bilaterally and development of a right- sided pleural effusion which is moderate in size and compressive atelectasis of the right lung base. Interestingly, the overall appearance looks like honeycombing on the CAT scan of the chest, yet, this patient does not have pulmonate fibrosis towards her lung disease and the findings on the CAT scan is mimicking pulmonary fibrosis but in fact it represents background emphysema with increased interstitial prominence probably related to CHF or superimposed pneumonia. I'm also not certain of the filling defects is were discussed by radiology. The patient has adequate opacification of the pulmonary arteries and the possibility of pulmonary embolism contributing to her respiratory failure is least of my concern at this point. 2 peripheral vascular disease with critical stenosis of the left common iliac artery 3 gangrenous toes related to her for an embolization probably from atherosclerosis of the left common iliac artery. The patient was seen by vascular surgery and outpatient vascular intervention was being planned. Unfortunately the patient would likely lose several toes if not part of her foot. 4 troponin leak 5 COPD 6 recent hospitalization for GI bleed secondary to duodenitis and gastritis 7 nicotine addiction/smoking 8 nephrolithiasis 9 recent treatment for E. coli urine checked infection and the patient was completing a course of ciprofloxacin on outpatient basis 10 debilitated condition with obvious signs of malnourishment and poor health maintenance Plan The patient will be removed immediately to the intensive care unit. There is a concern that the patient will go into further respiratory failure requiring intubation mechanical ventilation. Based on that, I ordered a baseline blood gas at this point to assess her acid base status and the extent of her hypoxemia. She'll be covered with broad-spectrum antibiotics and she'll be given a combination of Zosyn and Levaquin and vancomycin. We'll send sputum Gram stain and culture. We'll send blood cultures. We'll put the patient on IV Lasix 40 mg every 12 hours. Kept on the IV fluids to KVO. Put the patient on Xopenex and Atrovent about treatments 4 times a day [id number]. Agree on IV heparin for the time being although as mentioned the possibility of pulmonary embolism is a much lesser contributing factor to her respiratory failure. We'll monitor the right-sided pleural effusion and consider thoracentesis should there be any worsening in the right-sided pleural effusion. For the time being the amount of fluid is rather small to moderate. We will ask vascular surgery to reevaluate this patient's toes. We'll put the patient IV Protonix. We'll move her to the intensive care unit. Condition is quite critical at this point. Troponins are borderline and it's reasonable to repeat echocardiogram baseline above-mentioned clinical events.
[2016-07-09 13:53] LABS: ABG Base Excess -1.3 mmol/L; ABG HCO3 22 mmol/L (21-25); ABG PCO2 32 mmHg (35-45); ABG PH 7.46 (7.35-7.45); ABG PO2 73 mmHg (83-108); ABG TCO2 23 mmol/L (19-24)
[2016-07-09] MEDS ORDERED: IV VANCOMYCIN PER PHARMACY 1 EACH MISC MISCELLANE PRN (14:19)
[2016-07-09 15:10] LABS: Glucose,Whole Blood 123 mg/dL (75-99)
[2016-07-09] MEDS: LEVALBUTEROL NEB (CONC) 1.25 MG/0.5 ML AMP INHALATION SCH ×3 (15:26→19:21)
[2016-07-09] MEDS ORDERED: ROCURONIUM BROMIDE 10 MG/ML 10 ML VIAL IV ONE (17:35)
[2016-07-09] MEDS ORDERED: MIDAZOLAM (PF) 1 MG/ML 5 ML VIAL ONE (17:35)
[2016-07-09] MEDS ORDERED: PROPOFOL 10 MG/ML 20 ML VIAL IV ONE (17:35)
[2016-07-09] MEDS ORDERED: SUCCINYLCHOLINE CHLORIDE 100 MG/5 ML SYR IV ONE (17:35)
[2016-07-09] MEDS: PROPOFOL 500 MG in EMPTY BAG 1 BAG IV SCH ×2 (17:55→21:30)
--- NOTE | 2016-07-09 18:01 | XR ---
EXAMINATION TYPE: XR chest 1V portable DATE OF EXAM: 07/09/2016 5:56 PM COMPARISON: Yesterday HISTORY: Check tube placement TECHNIQUE: Single frontal view of the chest is obtained. FINDINGS: Endotracheal tube is in fairly good position 2.5 cm from the louann. There are chest leads . There is pulmonary interstitial edema. There is blunting of costophrenic angles. IMPRESSION: Pulmonary edema and pleural effusions are unchanged compared to yesterday. Endotracheal tube is in good position.
[2016-07-09 18:32] LABS: ABG Base Excess 2.2 mmol/L; ABG HCO3 28 mmol/L (21-25); ABG PCO2 61 mmHg (35-45); ABG PH 7.29 (7.35-7.45); ABG PO2 240 mmHg (83-108); ABG TCO2 30 mmol/L (19-24)
--- NOTE | 2016-07-09 19:01 | XR ---
EXAMINATION TYPE: XR chest 1V portable DATE OF EXAM: 07/09/2016 6:57 PM COMPARISON: Today HISTORY: Check line placement TECHNIQUE: Single frontal view of the chest is obtained. FINDINGS: There is a left subclavian catheter with the tip in the superior vena cava. There is no si gn of a pneumothorax. Endotracheal tube is in good position. There is a nasogastric tube in good posi tion. There are chest leads. There is mild pulmonary edema. There is blunting of costophrenic angles. IMPRESSION: The left side central venous catheter appears in good position. There is pleural effusio n and mild pulmonary edema without change compared to earlier exam today.
[2016-07-09] MEDS ORDERED: Potassium Replacement Protocol 1 EACH MISC MISCELLANE PRN (19:31)
[2016-07-09] MEDS ORDERED: Magnesium Replacement Protocol 1 EACH MISC MISCELLANE PRN (19:31)
[2016-07-09] MEDS ORDERED: NALOXONE 0.4 MG/ML 1 ML VIAL IV PRN (19:32)
[2016-07-09] MEDS: HEPARIN SODIUM,PORCINE/D5W PMX 25,000 UNIT in DEXTROSE/WATER 1 500ML.BAG IV SCH (19:47)
[2016-07-09] MEDS ORDERED: POTASSIUM CHLORIDE ORAL LIQUID 40 MEQ/30 ML CUP NG-TUBE SCH (20:00)
[2016-07-09] MEDS ORDERED: LEVOFLOXACIN 750MG-D5W PMX 750 MG in DEXTROSE/WATER 1 150ML.BAG IVPB SCH (20:00)
[2016-07-09] MEDS: FUROSEMIDE 10 MG/ML 4 ML VIAL IV SCH (21:07)
[2016-07-09] MEDS: MAGNESIUM SULFATE-D5W PMX 1 GM in DEXTROSE/WATER 1 100ML.BAG IVPB SCH ×2 (21:07→21:58)
[2016-07-09] MEDS: PANTOPRAZOLE 40 MG/10 ML VIAL IV SCH (21:08)
[2016-07-09] MEDS: CHLORHEXIDINE GLUCONATE 15 ML CUP MUCOUS MEM SCH (21:11)
--- NOTE | 2016-07-09 21:23 | HP ---
DATE OF ADMISSION: REASON FOR ADMISSION: Difficulty in breathing. HISTORY OF PRESENTING ILLNESS: This is a 56-year-old female who was recently discharged from the hospital after being treated for urinary tract infection. She comes into the hospital 48 hours after being discharged with worsening shortness of breath and respiratory failure. Patient appeared to be tachypneic and tachycardic. Patient was hypoxic and hence was started on non-rebreather oxygen in the ER. I evaluated the patient in the ICU. At that time patient was on a non-rebreather and was at that time refusing BiPAP. Initial CT scan done of the chest showed some questionable filling defects in the left upper lobe branches of the pulmonary artery. Patient was also noted to have a right-sided pleural effusion on the same scan. Patient was given a dose of Lasix 40 mg IV and had about 2.8 L of urine output thereafter. Patient was also noted to have acute pain in her toes in her left lower extremity which also started a day prior to her admission at this time. Patient apparently has had peripheral arterial disease involving the left common iliac artery. Patient states that her breathing has progressively gotten worse over the last 48 hours, and hence she came into the hospital for ongoing care. Patient denies having any history of PEs in the past. REVIEW OF SYSTEMS: A 12-point review of systems was done. Patient denies any other pertinent complaints other than what was described in the HPI. Past medical history includes: 1. Peripheral vascular disease. 2. Pulmonary hypertension. 3. History of GI bleed. 4. History of recent UTI. 5. Advanced COPD. 6. Peripheral neuropathy. 7. Chronic back pain. PAST SURGICAL HISTORY: EGD in the past. SOCIAL HISTORY: Patient is a former smoker; quit very recently; had over a [id number] of smoking history. Denies using any alcohol or illicit drugs. Medications included: 1. Albuterol. 2. Flexeril. 3. Gabapentin. 4. Benadryl. ALLERGIES: PATIENT APPARENTLY IS ALLERGIC TO ASPIRIN. FAMILY HISTORY: Not pertinent to the current admission. PHYSICAL EXAMINATION: Vitals include a pulse of 130. Blood pressure initially was 161/91. Saturating 91% on 100% FiO2. Temperature is 98.3. GENERAL APPEARANCE: Alert, oriented x3. LUNGS: Diminished breath sounds. No crackles or wheezing appreciated. HEART: Slightly tachycardic. A systolic murmur is appreciated. Rhythm appears to be regular. ABDOMEN: Soft, nontender. No organomegaly. LOWER EXTREMITIES: Gangrenous toes noted on the right lower extremity. A PT could be palpated on the left lower extremity. Neurologically, no focal motor or sensory deficit appreciated. Laboratory values include hemoglobin of 11.6, hematocrit 35.5, white count 12.1, platelets of 266. Sodium 142, potassium 3.8, chloride 109, bicarb 21. BUN 11, creatinine 0.80. D-dimer was elevated at 10.81. ASSESSMENT AND PLAN: 1. Acute hypoxic respiratory failure, likely multifactorial in nature, likely secondary to acute exacerbation of diastolic heart failure and possibly ventilation perfusion mismatch with pulmonary embolism in the left upper lobe pulmonary artery vasculature. 2. Peripheral vascular disease with critical stenosis of the left common iliac artery. 3. Indeterminate troponin leak. 4. Advanced chronic obstructive pulmonary disease. 5. Recent gastrointestinal bleed. 6. Nephrolithiasis. 7. Recent urinary tract infection. 8. History of hypertension PLAN: Patient apparently failed BiPAP therapy and thereafter had to be intubated. Continue endotracheal support. Consult Dr. Antonio Jara for intensive care management. Continue IV heparin. Patient will be maintained on IV diuretics. With patient's elevated right ventricular systolic pressure and a pulmonary embolism that is acute, patient would benefit from being rather more on the dry side. Continue Protonix in light of patient being initiated on IV heparin in light of the recent GI bleed. Patient is critically ill. Patient should have serial hemoglobin checks in order to ensure no acute blood loss anemia. Continue ongoing care. Will follow the patient. Vascular surgery consult will also be obtained at this time.
[2016-07-09 21:34] LABS: Appearance,Urine Clear (Clear); Bacteria,Urine Rare /hpf; Bilirubin,Urine Negative (Negative); Glucose,Urine (UA) Negative (Negative); Ketones,Urine Negative (Negative); Leukocyte Esterase,Urine Moderate (Negative); Mucus,Urine Rare /hpf; Nitrite,Urine Negative (Negative); Particle Count 6581; Protein,Urine Trace (Negative); RBC,Urine 29 /hpf (0-5); Specific Gravity,Urine 1.009 (1.001-1.035); UA Billing (MACRO vs. MICRO) MICRO; Urobilinogen,Urine <2.0 mg/dL (<2.0); WBC,Urine 21 /hpf (0-5)
[2016-07-09 21:49] LABS: Glucose,Whole Blood 171 mg/dL (75-99)
[2016-07-10 00:33] LABS: Glucose,Whole Blood 152 mg/dL (75-99)
[2016-07-10] MEDS: FUROSEMIDE 10 MG/ML 4 ML VIAL IV SCH ×3 (00:44→20:48)
[2016-07-10] MEDS: INSULIN LISPRO (humaLOG) 300 UNIT/3 ML VIAL SQ SCH ×4 (00:44→18:16)
[2016-07-10] MEDS: PIPERACILLIN-TAZOBACTAM 3.375 GM in DEXTROSE/WATER 1 50ML.BAG IVPB SCH ×3 (00:44→16:33)
[2016-07-10] MEDS: PROPOFOL 500 MG in EMPTY BAG 1 BAG IV SCH ×5 (03:28→20:48)
[2016-07-10 05:56] LABS: ABG PH 7.55 (7.35-7.45)
[2016-07-10 05:57] LABS: ABG Base Excess 3.6 mmol/L; ABG HCO3 26 mmol/L (21-25); ABG PCO2 30 mmHg (35-45); ABG PO2 100 mmHg (83-108); ABG TCO2 27 mmol/L (19-24)
--- NOTE | 2016-07-10 06:41 | PCN ---
DATE OF PROCEDURE: PREOPERATIVE DIAGNOSIS: Respiratory failure. POSTOPERATIVE DIAGNOSIS: Respiratory failure. TRIPLE LUMEN CATHETER PLACEMENT Indication: Hemodynamic monitoring/Intravenous access. A time-out was completed verifying correct patient, procedure, site, positioning, and implant(s) or special equipment if applicable. The patient was placed in a dependent position appropriate for triple lumen catheter placement based on the vein to be cannulated. The patient's left shoulder was prepped and draped in sterile fashion. 1% Lidocaine was used to anesthetize the surrounding skin area. A triple lumen 9F Cordis catheter was introduced into the left subclavian using Seldinger technique. The catheter was threaded smoothly over the guide wire and appropriate blood return was obtained. Each lumen of the catheter was evacuated of air and flushed with sterile saline. The catheter was then sutured in place to the skin and a sterile dressing applied. Perfusion to the extremity distal to the point of catheter insertion was checked and found to be adequate. No bedside complications or bleeding. Chest x-ray to follow to rule out pneumothorax.
[2016-07-10] MEDS: IPRATROPIUM 0.5 MG/2.5 ML NEBU INHALATION SCH ×4 (07:28→19:50)
[2016-07-10] MEDS: LEVALBUTEROL NEB 1.25 MG/3 ML AMP INHALATION PRN (07:28)
[2016-07-10] MEDS: LEVALBUTEROL NEB (CONC) 1.25 MG/0.5 ML AMP INHALATION SCH ×4 (07:29→19:50)
--- NOTE | 2016-07-10 07:35 | XR ---
EXAMINATION TYPE: XR chest 1V DATE OF EXAM: 07/10/2016 7:10 AM COMPARISON: 07/09/2016 HISTORY: Shortness of breath TECHNIQUE: Single frontal view of the chest is obtained. FINDINGS: Diffuse interstitial pattern with bilateral pleural effusion and infiltrate noted. Central line, ETT, and NG tube stable. No pneumothorax. IMPRESSION: 1. Diffuse airspace disease is stable correlate for CHF.
--- NOTE | 2016-07-10 08:16 | P.PN ---
Subjective This is a 56-year-old female patient who presented emergency department after 48 hours of being discharged from the hospital for worsening shortness of breath and respiratory failure. The patient was in significant respiratory distress at time of arrival tachypneic and tachycardic. She was briefly tried on BiPAP which she failed and she was unable to tolerate and based on that she was placed in the 100% nonrebreather facemask. A CT angios the chest was done which was officially reported as having questionable filling defect in the secondary and tertiary branches of the left upper lobe pulmonary artery however , the striking abnormalities on the CT angios the chest is extensive emphysema and increased interstitial prominence bilaterally more so on the right and development of compressive atelectasis moderate-sized right-sided pleural effusion and this is in comparison to the previous CAT scan imaging there was an approximately a week ago. All these findings are rather new and that is no evidence of any pulmonary fibrosis and the patient has some background advanced COPD. The patient denies having any chest pain. She has a congested cough that she is unable to bring up much sputum. No fever. No chills. No aspiration. No pleurisy. Denies having any recurrent bouts of pneumonias. Denies being on home oxygen Upon review of her medical records, the patient was in the hospital approximately a week ago for various complications. She was having issues with GI bleeding and as part of further investigation the patient had an EGD that showed gastritis and duodenitis pH was also found to have ischemic toes in her left foot. Based on that, I vascular consultation was obtained and the patient was diagnosed having gangrenous toes probably an embolic phenomenon and it was thought that the embolism is from the extensive peripheral vascular disease that the patient had specially involving the left common iliac artery. The patient was seen by vascular surgery and there were some plans to consider stenting of the left iliac with subsequent fem-fem bypass surgery and this was supposed to be done outpatient basis. Meanwhile, several toes in the left lower extremity remains quite gangrenous at this point. Note that the patient had a CTA done on 07/01/2016 and it showed atherosclerosis involving the abdominal aorta without aneurysm, atherosclerosis involving the right common iliac artery. Severe narrowing within the left common iliac artery specially at a 1 cm segment involving the vessel. The CT also showed a 1.6 cm calculus in the left renal pelvis with obstructive uropathy due to asymmetric enhancement of the left kidney. The bile duct was slightly dilated at 9 mm and the patient had a mildly enlarged (aortic valve measuring 1.2 cm in size. COPD and diffuse emphysema was noted in lung windows without evidence of any pulmonary fibrosis. The echocardiogram was also completed and it showed a relatively preserved LV function with an ejection fraction of around 45-50%. There was moderate tricuspid regurgitation and moderate pulmonary hypertension with an estimated PA pressure of around 54 mmHg. No other significant valvular abnormalities noted. On 07/10/2016 the patient is being seen in follow-up. The patient is currently intubated on a mechanical ventilator. Last evening, the patient became progressively more short of breath and she was at a point where she went into respiratory failure and at that point I intubated this patient put on a mechanical ventilator. She is currently on assist-control mode rate of 12, tidal volume 400, FiO2 of 60% and a PEEP of 5. Morning blood gases showed a pO2 of 100 yet the patient has a significant degree of respiratory alkalosis with a pCO2 of 33 and pH of 7.55. The chest x-ray still showing moderate vascular congestion/edema with a right-sided pleural effusion in the right lower lobe consolidation. She is afebrile. She is producing adequate amount of urine output and the net fluid balance is -8.1 L over the past 24 hours. The patient is still diuresing while on Lasix and she is receiving Lasix 40 mg every 8 hours [id number]. She has a CVP of 8. She is on Diprivan of 35 mics. She is also on IV heparin although the concern of pulmonary embolus is extremely low based on my evaluation please refer to my earlier notes in regards to this issue. The patient was also evaluated by vascular surgery and obviously the toes on the left foot are gangrenous and ultimately she will need amputation along with stenting of the left common iliac for a tight stenosis. The patient is still on a broad-spectrum antibiotic coverage including a combination of Zosyn and Levaquin and vancomycin. Objective - Vital Signs Vital signs: Vital Signs Temp 97.0 F L 07/09/16 20:00 Pulse 98 07/10/16 07:29 Resp 28 H 07/10/16 06:00 BP 106/69 07/10/16 06:00 Pulse Ox 99 07/10/16 06:00 Intake & Output 0107/10/16 07/10/16 18:59 06:59 18:59 Intake Total 290 1952.854 Output Total 8030 2320 Balance -7740 -367.146 Weight 60.328 kg 60.4 kg Intake: IV 290 1053.8 Heparin Sodium,Porcine/ 222 D5w Pmx 25,000 unit In Dextrose/Water 1 500ml. bag @ 18 UNITS/KG/HR 21. 71 mls/hr IV .Q23H2M JANET Rx#:[id number] Propofol 500 mg In Empty 21.8 Bag 1 bag @ Titrate IV . Q0M JANET Rx#:[id number] Sodium Chloride 0.9% 1, 40 810 000 ml @ 100 mls/hr IV . Q10H JANET Rx#:[id number] Vancomycin 1,000 mg In 250 Sodium Chloride 0.9% 250 ml @ 125 mls/hr IVPB Q16H JANET Rx#:[id number] Intake, IV Titration 899.054 Amount Heparin Sodium,Porcine/ 573.506 D5w Pmx 25,000 unit In Dextrose/Water 1 500ml. bag @ 18 UNITS/KG/HR 21. 71 mls/hr IV .Q23H2M JANET Rx#:[id number] Magnesium Sulfate-D5w Pmx 100 1 gm In Dextrose/Water 1 100ml.bag @ 100 mls/hr IVPB Q1H JANET Rx#: [id number] Piperacillin-Tazobactam 3 87.5 .375 gm In Dextrose/Water 1 50ml.bag @ 12.5 mls/hr IVPB Q8HR JANET Rx#: [id number] Propofol 500 mg In Empty 138.048 Bag 1 bag @ Titrate IV . Q0M JANET Rx#:[id number] Output: Urine 8030 2320 Other: Voiding Method Indwelling Catheter Indwelling Catheter ABP, PAP, CO, CI - Last Documented Arterial Blood Pressure 122/71 - Exam The patient is intubated on mechanical ventilator. Orogastric and orotracheal tube are both in place. She is sedated although her overall condition is very light and the patient is able to open up her eyes and Medicare eye contact for more than 10 seconds.Head exam was generally normal. There was no scleral icterus or corneal arcus. Mucous membranes were moist. Neck is supple there is no JVDs no goiter or neck masses. The patient's lips are rather cyanotic at this point. Mucous membranes are extremely dry and the patient has poor oral dental hygiene. Lung sounds are markedly diminished in the right lung base along with some dullness. There is diminished breath sounds bilaterally and there is somewhat pronation of expiratory phase of breathing and scattered external wheezes. Heart sounds are tachycardic, positive S1-S2 and there is no S3 no S4 no murmurs could be appreciated.Abdominal exam revealed normal bowel sounds. The abdomen was soft, non-tender, and without masses, organomegaly, or appreciable enlargement of the abdominal aorta. Extremities shows skin mottling over the thighs bilaterally. Dorsalis pedis can be palpated bilaterally. The first second and the fifth toe are gangrenous and it patient has a dry gangrene. There is poor capillary refill. Trace edema. No cyanosis or clubbing. - Labs CBC & Chem 7: 07/08/16 19:29 07/09/16 02:55 Labs: Abnormal Lab Results - Last 24 Hours (Table) 07/09/16 07/09/16 07/09/16 Range/Units 09:50 12:32 15:08 APTT (22.0-30.0) sec ABG pH 7.46 H (7.35-7.45) ABG pCO2 32 L (35-45) mmHg ABG pO2 73 L (83-108) mmHg ABG HCO3 (21-25) mmol/L ABG Total CO2 (19-24) mmol/L ABG O2 Saturation (94-97) % POC Glucose (mg/dL) 123 H (75-99) mg/dL Magnesium (1.6-2.3) mg/dL Troponin I 0.123 H* (0.000-0.034) ng/mL Urine Protein (Negative) Urine Blood (Negative) Ur Leukocyte Esterase (Negative) Urine RBC (0-5) /hpf Urine WBC (0-5) /hpf Urine Bacteria (None) /hpf Hyaline Casts (0-2) /lpf Urine Mucus (None) /hpf 07/09/16 07/09/16 07/09/16 Range/Units 16:13 18:15 21:15 APTT (22.0-30.0) sec ABG pH 7.29 L (7.35-7.45) ABG pCO2 61 H (35-45) mmHg ABG pO2 240 H (83-108) mmHg ABG HCO3 28 H (21-25) mmol/L ABG Total CO2 30 H (19-24) mmol/L ABG O2 Saturation 100.0 H (94-97) % POC Glucose (mg/dL) (75-99) mg/dL Magnesium (1.6-2.3) mg/dL Troponin I 0.119 H* (0.000-0.034) ng/mL Urine Protein Trace H (Negative) Urine Blood Moderate H (Negative) Ur Leukocyte Esterase Moderate H (Negative) Urine RBC 29 H (0-5) /hpf Urine WBC 21 H (0-5) /hpf Urine Bacteria Rare H (None) /hpf Hyaline Casts 133 H (0-2) /lpf Urine Mucus Rare H (None) /hpf 07/09/16 07/10/16 07/10/16 Range/Units 21:47 00:32 05:05 APTT 41.0 H (22.0-30.0) sec ABG pH (7.35-7.45) ABG pCO2 (35-45) mmHg ABG pO2 (83-108) mmHg ABG HCO3 (21-25) mmol/L ABG Total CO2 (19-24) mmol/L ABG O2 Saturation (94-97) % POC Glucose (mg/dL) 171 H 152 H (75-99) mg/dL Magnesium (1.6-2.3) mg/dL Troponin I (0.000-0.034) ng/mL Urine Protein (Negative) Urine Blood (Negative) Ur Leukocyte Esterase (Negative) Urine RBC (0-5) /hpf Urine WBC (0-5) /hpf Urine Bacteria (None) /hpf Hyaline Casts (0-2) /lpf Urine Mucus (None) /hpf 07/10/16 07/10/16 Range/Units 05:05 05:11 APTT (22.0-30.0) sec ABG pH 7.55 H (7.35-7.45) ABG pCO2 30 L (35-45) mmHg ABG pO2 (83-108) mmHg ABG HCO3 26 H (21-25) mmol/L ABG Total CO2 27 H (19-24) mmol/L ABG O2 Saturation 99.0 H (94-97) % POC Glucose (mg/dL) (75-99) mg/dL Magnesium 2.4 H (1.6-2.3) mg/dL Troponin I (0.000-0.034) ng/mL Urine Protein (Negative) Urine Blood (Negative) Ur Leukocyte Esterase (Negative) Urine RBC (0-5) /hpf Urine WBC (0-5) /hpf Urine Bacteria (None) /hpf Hyaline Casts (0-2) /lpf Urine Mucus (None) /hpf Microbiology - Last 24 Hours (Table) 07/09/16 21:15 Urine Culture - Preliminary Urine,Catheterized Assessment and Plan Plan: Assessment 1 acute hypoxic respiratory failure. The patient is currently on 100% nonrebreather facemask and she was unable to tolerate BiPAP. There is significant otherwise on the computed tomography scan of the chest. There is increased infiltration of the right lung compared to the left in addition to extensive baseline emphysematous change bilaterally and development of a right- sided pleural effusion which is moderate in size and compressive atelectasis of the right lung base. Interestingly, the overall appearance looks like honeycombing on the CAT scan of the chest, yet, this patient does not have pulmonate fibrosis towards her lung disease and the findings on the CAT scan is mimicking pulmonary fibrosis but in fact it represents background emphysema with increased interstitial prominence probably related to CHF or superimposed pneumonia. I'm also not certain of the filling defects is were discussed by radiology. The patient has adequate opacification of the pulmonary arteries and the possibility of pulmonary embolism contributing to her respiratory failure is least of my concern at this point. On 07/10/2016, the patient is intubated on a mechanical ventilator. Chest x- ray still showing CHF/pulmonary edema with a right-sided pleural effusion along with a right lower lobe consolidation. She is diuresing excellent with IV Lasix and she is in a negative fluid balance of 8 L. Her blood gases from today is showing a component of acute respiratory alkalosis. Oxidation is improved and the pO2 is up to 100 with an FiO2 of 60% and a PEEP of 5. Echocardiogram is pending. The patient is also on broad-spectrum antibiotics including a combination of Zosyn and Levaquin and vancomycin. 2 peripheral vascular disease with critical stenosis of the left common iliac artery 3 gangrenous toes related to her for an embolization probably from atherosclerosis of the left common iliac artery. The patient was seen by vascular surgery and outpatient vascular intervention was being planned. Unfortunately the patient would likely lose several toes if not part of her foot. 4 troponin leak 5 COPD 6 recent hospitalization for GI bleed secondary to duodenitis and gastritis 7 nicotine addiction/smoking 8 nephrolithiasis 9 recent treatment for E. coli urine checked infection and the patient was completing a course of ciprofloxacin on outpatient basis 10 debilitated condition with obvious signs of malnourishment and poor health maintenance Plan Continue vent support. Drop the FiO2 down to 50%. Continue with sedation with Diprivan. Continue Lasix and got Lasix dose to 40 mg every 12 hours. Echocardiogram is pending. Triple lumen catheter was inserted. CVP will be monitored and her most recent level is at 8. Continue same antibiotic coverage. Initiate tube feeds and would recommend starting this patient on vital high protein and dietary consult will also be obtained. The patient was seen by vascular surgery. No need for any immediate intervention at this point and ultimately plan is to sit with a stenting of the common iliac artery and amputation of the gangrenous toes from the left foot. Please refer to the ventilation that was done by vascular surgery. Condition remains critical. We' ll continue to follow make further recommendations accordingly. This is an evaluation that was done and 35 minutes. Discussion was also found with the vascular surgeon. Time with Patient: Greater than 30
[2016-07-10] MEDS: VANCOMYCIN 1,000 MG in SODIUM CHLORIDE 0.9% 250 ML IVPB SCH (08:38)
[2016-07-10] MEDS: CHLORHEXIDINE GLUCONATE 15 ML CUP MUCOUS MEM SCH ×2 (08:38→20:48)
[2016-07-10] MEDS: PANTOPRAZOLE 40 MG/10 ML VIAL IV SCH (08:39)
[2016-07-10 09:02] LABS: Anion Gap 12 mmol/L; Blood Urea Nitrogen 12 mg/dL (7-17); Calcium 7.7 mg/dL (8.4-10.2); Carbon Dioxide 27 mmol/L (22-30); Chloride 103 mmol/L (98-107); Glucose 113 mg/dL (74-99); Non-African American GFR(MDRD) 51 (>60 ml/min/1.73 sqM); Phosphorous 3.9 mg/dL (2.5-4.5); Potassium 3.2 mmol/L (3.5-5.1); Sodium 142 mmol/L (137-145)
[2016-07-10 09:03] LABS: Basophils % (A) 0 %; CHCM 33.2; Eosinophils # (A) 0.2 k/uL (0-0.7); Eosinophils % (A) 2 %; HCT 31.6 % (34.0-46.0); HDW 3.05; HGB 10.1 gm/dL (11.4-16.0); Luc # (Auto) 0.17; Luc % (Auto) 2; Lymphocytes # (A) 0.9 k/uL (1.0-4.8); Lymphocytes % (A) 10 %; MCH 29.2 pg (25.0-35.0); MCHC 32.1 g/dL (31.0-37.0); MCV 91.1 fL (80.0-100.0); Mean Platelet Volume 8.7; Monocytes # (A) 0.8 k/uL (0-1.0); Monocytes % (A) 8 %; Neutrophils # (A) 7.9 k/uL (1.3-7.7); Neutrophils % (A) 80 %; RBC 3.47 m/uL (3.80-5.40); RDW 15.6 % (11.5-15.5); WBC 9.9 k/uL (3.8-10.6); WBC (Perox) 10.38
--- NOTE | 2016-07-10 09:48 | P.CON ---
Consult Note - . Assessment/Plan:: impression; 1. respiratory failure of multiple etiologies; pneumonia, heart failure, COPD 2. gangrenous changes to left toes (2,3,5) that are dry with no evidence of infection; there is no evidence of recurrent embolization to the left foot 3. possible pulmonary embolism plan; 1. continue supportive care as per critical care team 2. patient requires open placement of covered left iliac artery stent; will need surgical exposure of left femoral artery to place stent; will proceed when patient is more stable 56 y/o woman, well known to the service, seen approximately one week ago with sudden onset of severe pain in left forefoot and cyanotic toes. At the time, patient was admitted for urosepsis and e. coli bacteremia. She developed an UGI bleed while admitted that did not require transfusion; her EGD during admission demonstrated gastritis and duodenitis. Non-invasive work-up demonstrated moderate left iliofemoral arterial occlusive disease with an PABLITO of 0.75. CTA demonstrated high grade left iliac artery stenosis with soft thrombus noted in the distal left common iliac artery. The plan was to complete treatment of her UTI and proceed with open placement (via left femoral cutdown) of a covered stent in the left iliac artery. A right to left femoral to femoral crossover procedure was considered as a bail out in case the stenting was unsuccessful. In the interim, patient admitted with acute respiratory failure of multiple etiologies. Here left foot is essentially unchanged from when she was discharged on 07/07/2016. CMHx, FHx, PSHx, Habits; essentially unchanged from last admission PE: EXTR; femoral pulses are palpable bilaterally with left diminished compared to the right; popliteal and dorsalis pedis pulses are palpable bilaterally; the left leg pulses are diminished when compared to the right; there is dry gangrene of the second, third and 5th toes; no evidence of infection and no evidence of recurrent embolization. impression/plan as noted above dressing change orders written following thanks for consult
--- NOTE | 2016-07-10 11:45 | CDI ---
In responding to this query, please exercise your independent professional judgment. The [facility] Coding Staff and Clinical Documentation Specialists appreciate your assistance in clarifying documentation, maintaining compliance with coding guidelines, accurately documenting patients condition and capturing severity of illness. The fact that a question is asked does not imply that any particular answer is desired or expected. Communication forms are a method of clarifying documentation and are not made part of the Legal Health Record. Thank you in advance for your clarification. Last Revision, April 2015 Venus Lyn [address] [place] [address] Documentation Clarification Form Date: 07/10/2016 2:34:00 PM From: Tamra Wallace RN, CCDS Admit Date: 07/08/2016 7:33:00 PM Patient Name: Alina Orellana Visit Number: [id number] Dr. Wilver Sanchez History/Risk Factors: Recently D/C 48 hrs [employer] for UTI, PVD, Pulm HTN, COPD Clinical Indicators: 07/09 H&P: "She comes into the hospital 48 hours after being discharged with worsening shortness of breath and respiratory failure. Patient appeared to be tachypneic and tachycardic. Patient was hypoxic and hence was started on non- rebreather oxygen in the ER. I evaluated the patient in the ICU." WBC; 12.1/9.9 Left Shift: 9.6/7.9 Lactic acid: 1.3 D-Dimer: 10.81 Blood cultures: Negative at 24 hrs Urine Cx: in progress Vitals signs on admission: Temp 97.8, HR 138, RR 24-35, B/P 118/67, SPO2 72% RA Documented Infectious processes: Gangrenous Toes, Documented Pneumonia this Admission, Recent D/C with [place] for UTI Associated Organ Failure: Acute hypoxic respiratory failure, Acute diastolic CHF , PE Treatment: ID Consult: no order Antibiotics: Vanco 1gm IVPB Q 16 hrs, Zosyn 3.375gm IVPB Q 8hrs, Levaquin 750mg IVPB Q 24 hrs IV Bolus: 2.5L 0.9% followed by 100 cc/hr then decreased to 10 cc/hr In your professional opinion, can you please clarify if these findings signify one of the following conditions, whether the condition is POA, and cause, if known? Sepsis Severe Sepsis Septic Shock Unable to determine Other, please specify * Identify the (suspected) organism * Link or clarify if there is associated (due to/with): - Organ failure - Shock SIRS Criteria: 2 or more of the following may indicate SIRS Temperature < 96.8F(36C) or > 101.0F (38C) Heart Rate > 90 bpm Respiratory Rate > 20 breaths/min or PaCO2 < 32 mmHg White Blood Cell Count > 12,000 or < 4,000 cells/mm3 or > 10% bands Please document in your progress notes and discharge summary in order to capture severity of illness and risk of mortality. Include clinical findings that support your diagnosis. FYI: Press F11 to launch patient chart. Place X here if this finding has no clinical significance, is not applicable or if you are not able to provide any additional documentation. REJI
--- NOTE | 2016-07-10 12:23 | CDI ---
In responding to this query, please exercise your independent professional judgment. The [facility] Coding Staff and Clinical Documentation Specialists appreciate your assistance in clarifying documentation, maintaining compliance with coding guidelines, accurately documenting patients condition and capturing severity of illness. The fact that a question is asked does not imply that any particular answer is desired or expected. Communication forms are a method of clarifying documentation and are not made part of the Legal Health Record. Thank you in advance for your clarification. Last Revision, April 2015 Venus Lyn [address] [facility] [place] [address] Documentation Clarification Form Date: 07/10/2016 3:05:00 PM From: Tamra Wallace RN, CCDS Admit Date: 07/08/2016 7:33:00 PM Patient Name: Alina Orellana Visit Number: [id number] Dr. Sanchez Pneumonia was documented in your notes History/Risk Factors: Recently D/C 48 hrs [employer] with UTI, Pulmonary HTN, Advanced COPD Clinical Indicators: 07/08 Ed Note: "Patient presents here for evaluation of shortness of breath cough and congestion, positive recent hospital admission, patient does have pneumonia on x-ray. As well as broad-spectrum antibiotics for nosocomial acquired pneumonia." WBC 12.1/9.9 Left shift: Neutrophils 9.6/7.9 Lung/Breathing assessment: 07/09 Pulmonary assessment: "The patient is significant respiratory distress at this point and she is unable to speak full sentences. She is using some excessive muscle breathing while being on the percent nonrebreather facemask. The patient's lips are rather cyanotic at this point. Lung sounds are markedly diminished in the right lung base along with some dullness. There is diminished breath sounds bilaterally and there is somewhat prolongation of expiratory phase of breathing and scattered external wheezes" Treatment: Antibiotics: Levaquin 750 mg IVPB Q 24 hrs, Zosyn 3.375gm IVPB Q 8 hrs, Vanco 1gm IVPB Q 16 hrs O2:2L, to 100% NRB, To mechanical Vent Breathing TX: Xopenex an Atrovent QID and Q 2 hrs PRN In order to capture the severity of condition, please clarify if the condition signifies and you are treating for: Aspiration Pneumonia, identify if: Due to solids or liquids Bacterial Pneumonia, specify causal organism (if known) Gram Negative Pneumonia Due to Strep Due to Staph Due to E. coli Other bacteria (specify) Viral Pneumonia, specify casual organism (if known) Ventilator Associated Pneumonia Unable to determine Link any associated conditions to the pneumonia: Influenza with secondary gram negative pneumonia Sepsis due to pneumonia Acute respiratory failure due to pneumonia Other, please specify Please document in your progress notes and discharge summary in order to capture severity of illness and risk of mortality. Include clinical findings that support your diagnosis. FYI: Press F11 to launch patient chart. Place X here if this finding has no clinical significance, is not applicable or if you are not able to provide any additional documentation. REJI
[2016-07-10] MEDS ORDERED: POTASSIUM CHLORIDE 20 MEQ in WATER FOR INJECTION 1 100ML.BAG IVPB ONE ×2 (13:00→18:00)
[2016-07-10 13:15] LABS: Glucose,Whole Blood 128 mg/dL (75-99)
--- NOTE | 2016-07-10 15:17 | P.PN ---
Subjective 56-year-old female that was admitted to the hospital after being treated for a GI bleed/UTI/respiratory issues as well. Patient was significantly hypoxic. Initial computed tomography scan of the chest revealed a left upper lobe territory pulmonary embolism. Patient was also noted to have significant fluid overload on the chest CT. Patient failed BiPAP therapy and hence was intubated overnight. This a.m. patient is currently on the ventilator on a minimal dose of propofol for sedation. Patient is nonresponsive currently on the ventilator at [place] rate of 12 tidal I will 450 FiO2 of 50% and PEEP of 5. No new overnight events are reported. Objective - Vital Signs Vital signs: Vital Signs Temp 99.0 F 07/10/16 12:00 Pulse 108 H 07/10/16 13:00 Resp 30 H 07/10/16 13:00 BP 90/62 07/10/16 13:00 Pulse Ox 96 07/10/16 13:00 Intake & Output 07/09/16 07/10/16 07/10/16 18:59 06:59 18:59 Intake Total 290 1952.854 815.575 Output Total 8030 2320 1750 Balance -7740 -367.146 -934.425 Weight 60.328 kg 60.4 kg 60.4 kg Intake: IV 290 1053.8 720 Heparin Sodium,Porcine/ 222 D5w Pmx 25,000 unit In Dextrose/Water 1 500ml. bag @ 18 UNITS/KG/HR 21. 71 mls/hr IV .Q23H2M JANET Rx#:[id number] Piperacillin-Tazobactam 3 50 .375 gm In Dextrose/Water 1 50ml.bag @ 12.5 mls/hr IVPB Q8HR JANET Rx#: [id number] Propofol 500 mg In Empty 21.8 Bag 1 bag @ Titrate IV . Q0M JANET Rx#:[id number] Sodium Chloride 0.9% 1, 40 810 420 000 ml @ 100 mls/hr IV . Q10H JANET Rx#:[id number] Vancomycin 1,000 mg In 250 250 Sodium Chloride 0.9% 250 ml @ 125 mls/hr IVPB Q16H JANET Rx#:[id number] Intake, IV Titration 899.054 95.575 Amount Heparin Sodium,Porcine/ 573.506 D5w Pmx 25,000 unit In Dextrose/Water 1 500ml. bag @ 18 UNITS/KG/HR 21. 71 mls/hr IV .Q23H2M JANET Rx#:[id number] Magnesium Sulfate-D5w Pmx 100 1 gm In Dextrose/Water 1 100ml.bag @ 100 mls/hr IVPB Q1H JANET Rx#: [id number] Piperacillin-Tazobactam 3 87.5 .375 gm In Dextrose/Water 1 50ml.bag @ 12.5 mls/hr IVPB Q8HR JANET Rx#: [id number] Propofol 500 mg In Empty 138.048 95.575 Bag 1 bag @ Titrate IV . Q0M JANET Rx#:[id number] Output: Urine 8030 2320 1750 Other: Voiding Method Indwelling Catheter Indwelling Catheter ABP, PAP, CO, CI - Last Documented Arterial Blood Pressure 110/60 - Exam Gen. appearance currently sedated Lungs crackles appreciated at the bases Heart slightly tachycardic no murmurs appreciated Abdomen is soft no no organomegaly Lower extremities there is changes of dry gangrene on the left lower extremities on the toes. Neuro is deferred as patient is sedated. - Labs CBC & Chem 7: 07/10/16 05:05 07/10/16 05:05 Labs: Abnormal Lab Results - Last 24 Hours (Table) 07/09/16 07/09/16 07/09/16 Range/Units 16:13 18:15 21:15 RBC (3.80-5.40) m/uL Hgb (11.4-16.0) gm/dL Hct (34.0-46.0) % RDW (11.5-15.5) % Neutrophils # (1.3-7.7) k/uL Lymphocytes # (1.0-4.8) k/uL APTT (22.0-30.0) sec ABG pH 7.29 L (7.35-7.45) ABG pCO2 61 H (35-45) mmHg ABG pO2 240 H (83-108) mmHg ABG HCO3 28 H (21-25) mmol/L ABG Total CO2 30 H (19-24) mmol/L ABG O2 Saturation 100.0 H (94-97) % Potassium (3.5-5.1) mmol/L Creatinine (0.52-1.04) mg/dL Glucose (74-99) mg/dL POC Glucose (mg/dL) (75-99) mg/dL Calcium (8.4-10.2) mg/dL Magnesium (1.6-2.3) mg/dL Troponin I 0.119 H* (0.000-0.034) ng/mL Urine Protein Trace H (Negative) Urine Blood Moderate H (Negative) Ur Leukocyte Esterase Moderate H (Negative) Urine RBC 29 H (0-5) /hpf Urine WBC 21 H (0-5) /hpf Urine Bacteria Rare H (None) /hpf Hyaline Casts 133 H (0-2) /lpf Urine Mucus Rare H (None) /hpf 07/09/16 07/10/16 07/10/16 Range/Units 21:47 00:32 05:05 RBC (3.80-5.40) m/uL Hgb (11.4-16.0) gm/dL Hct (34.0-46.0) % RDW (11.5-15.5) % Neutrophils # (1.3-7.7) k/uL Lymphocytes # (1.0-4.8) k/uL APTT 41.0 H (22.0-30.0) sec ABG pH (7.35-7.45) ABG pCO2 (35-45) mmHg ABG pO2 (83-108) mmHg ABG HCO3 (21-25) mmol/L ABG Total CO2 (19-24) mmol/L ABG O2 Saturation (94-97) % Potassium (3.5-5.1) mmol/L Creatinine (0.52-1.04) mg/dL Glucose (74-99) mg/dL POC Glucose (mg/dL) 171 H 152 H (75-99) mg/dL Calcium (8.4-10.2) mg/dL Magnesium (1.6-2.3) mg/dL Troponin I (0.000-0.034) ng/mL Urine Protein (Negative) Urine Blood (Negative) Ur Leukocyte Esterase (Negative) Urine RBC (0-5) /hpf Urine WBC (0-5) /hpf Urine Bacteria (None) /hpf Hyaline Casts (0-2) /lpf Urine Mucus (None) /hpf 07/10/16 07/10/16 07/10/16 Range/Units 05:05 05:05 05:05 RBC 3.47 L (3.80-5.40) m/uL Hgb 10.1 L (11.4-16.0) gm/dL Hct 31.6 L (34.0-46.0) % RDW 15.6 H (11.5-15.5) % Neutrophils # 7.9 H (1.3-7.7) k/uL Lymphocytes # 0.9 L (1.0-4.8) k/uL APTT (22.0-30.0) sec ABG pH (7.35-7.45) ABG pCO2 (35-45) mmHg ABG pO2 (83-108) mmHg ABG HCO3 (21-25) mmol/L ABG Total CO2 (19-24) mmol/L ABG O2 Saturation (94-97) % Potassium 3.2 L (3.5-5.1) mmol/L Creatinine 1.12 H (0.52-1.04) mg/dL Glucose 113 H (74-99) mg/dL POC Glucose (mg/dL) (75-99) mg/dL Calcium 7.7 L (8.4-10.2) mg/dL Magnesium 2.4 H (1.6-2.3) mg/dL Troponin I (0.000-0.034) ng/mL Urine Protein (Negative) Urine Blood (Negative) Ur Leukocyte Esterase (Negative) Urine RBC (0-5) /hpf Urine WBC (0-5) /hpf Urine Bacteria (None) /hpf Hyaline Casts (0-2) /lpf Urine Mucus (None) /hpf 07/10/16 07/10/16 Range/Units 05:11 13:13 RBC (3.80-5.40) m/uL Hgb (11.4-16.0) gm/dL Hct (34.0-46.0) % RDW (11.5-15.5) % Neutrophils # (1.3-7.7) k/uL Lymphocytes # (1.0-4.8) k/uL APTT (22.0-30.0) sec ABG pH 7.55 H (7.35-7.45) ABG pCO2 30 L (35-45) mmHg ABG pO2 (83-108) mmHg ABG HCO3 26 H (21-25) mmol/L ABG Total CO2 27 H (19-24) mmol/L ABG O2 Saturation 99.0 H (94-97) % Potassium (3.5-5.1) mmol/L Creatinine (0.52-1.04) mg/dL Glucose (74-99) mg/dL POC Glucose (mg/dL) 128 H (75-99) mg/dL Calcium (8.4-10.2) mg/dL Magnesium (1.6-2.3) mg/dL Troponin I (0.000-0.034) ng/mL Urine Protein (Negative) Urine Blood (Negative) Ur Leukocyte Esterase (Negative) Urine RBC (0-5) /hpf Urine WBC (0-5) /hpf Urine Bacteria (None) /hpf Hyaline Casts (0-2) /lpf Urine Mucus (None) /hpf Microbiology - Last 24 Hours (Table) 07/09/16 21:15 Urine Culture - Preliminary Urine,Catheterized Assessment and Plan Plan: #1 acute hypoxic respiratory failure likely secondary to an acute exacerbation of congestive heart failure that is diastolic in nature. Underlying right lower lobe bacterial pneumonia cannot be excluded it would likely be gram- negative in nature and healthcare acquired in nature. #2 peripheral vascular disease with critical stenosis of the left common iliac artery #3 COPD #4 recent GI bleed #5 nephrolithiasis #6 left upper lobe PE that is questionable #7 mild to moderate protein calorie malnutrition Plan Continue support on the ventilator. GI and DVT prophylaxis should be maintained. Continue diuretics patient is currently 7 L negative since admission. FiO2 has been significantly trended down since admission as well.
[2016-07-10] MEDS: HEPARIN SODIUM,PORCINE/D5W PMX 25,000 UNIT in DEXTROSE/WATER 1 500ML.BAG IV SCH (16:34)
[2016-07-10 18:18] LABS: Glucose,Whole Blood 125 mg/dL (75-99)
[2016-07-10] MEDS: SODIUM CHLORIDE 0.9% 1,000 ML IV SCH (20:49)
[2016-07-11 00:04] LABS: Glucose,Whole Blood 126 mg/dL (75-99)
[2016-07-11] MEDS: PROPOFOL 500 MG in EMPTY BAG 1 BAG IV SCH ×4 (00:17→11:05)
[2016-07-11] MEDS: PIPERACILLIN-TAZOBACTAM 3.375 GM in DEXTROSE/WATER 1 50ML.BAG IVPB SCH ×3 (00:20→16:51)
[2016-07-11] MEDS: INSULIN LISPRO (humaLOG) 300 UNIT/3 ML VIAL SQ SCH ×4 (00:20→19:00)
[2016-07-11] MEDS: VANCOMYCIN 1,000 MG in SODIUM CHLORIDE 0.9% 250 ML IVPB SCH ×2 (00:20→16:52)
[2016-07-11] MEDS: POTASSIUM CHLORIDE ORAL LIQUID 40 MEQ/30 ML CUP NG-TUBE SCH ×2 (02:20→03:30)
[2016-07-11 05:09] LABS: ABG HCO3 27 mmol/L (21-25); ABG PCO2 31 mmHg (35-45); ABG PH 7.54 (7.35-7.45); ABG PO2 99 mmHg (83-108); ABG TCO2 28 mmol/L (19-24)
[2016-07-11 06:05] LABS: Basophils % (A) 0 %; CH 29.5; CHCM 32.9; Eosinophils # (A) 0.1 k/uL (0-0.7); Eosinophils % (A) 1 %; HCT 30.2 % (34.0-46.0); HDW 3.01; HGB 9.9 gm/dL (11.4-16.0); Luc # (Auto) 0.15; Luc % (Auto) 2; Lymphocytes # (A) 1.1 k/uL (1.0-4.8); Lymphocytes % (A) 14 %; MCH 29.4 pg (25.0-35.0); MCHC 32.6 g/dL (31.0-37.0); Mean Platelet Volume 8.2; Monocytes # (A) 0.5 k/uL (0-1.0); Monocytes % (A) 7 %; Neutrophils # (A) 6.2 k/uL (1.3-7.7); Neutrophils % (A) 76 %; RBC 3.36 m/uL (3.80-5.40); RDW 15.2 % (11.5-15.5); WBC 8.1 k/uL (3.8-10.6); WBC (Perox) 8.74
[2016-07-11 06:55] LABS: Anion Gap 9 mmol/L; Blood Urea Nitrogen 16 mg/dL (7-17); Carbon Dioxide 27 mmol/L (22-30); Chloride 106 mmol/L (98-107); Glucose 131 mg/dL (74-99); Non-African American GFR(MDRD) 60 (>60 ml/min/1.73 sqM); Phosphorous 3.3 mg/dL (2.5-4.5); Potassium 4.9 mmol/L (3.5-5.1); Sodium 142 mmol/L (137-145)
[2016-07-11] MEDS: LEVALBUTEROL NEB (CONC) 1.25 MG/0.5 ML AMP INHALATION SCH ×4 (07:23→19:43)
[2016-07-11] MEDS: IPRATROPIUM 0.5 MG/2.5 ML NEBU INHALATION SCH ×4 (07:23→19:43)
--- NOTE | 2016-07-11 08:12 | XR ---
EXAMINATION TYPE: XR chest 1V DATE OF EXAM: 07/11/2016 6:49 AM COMPARISON: Prior chest x-ray 10 July 2016 HISTORY: Pleural effusion, intubated TECHNIQUE: Single frontal view of the chest is obtained. FINDINGS: Endotracheal tube, NG tube, left subclavian central venous catheter are overlying appropri ate positions. 5 basilar density is present. Hemidiaphragms are obscured. Cardiomediastinal silhouett e is stable. There is improvement in the interstitium. There are overlying cardiac leads. IMPRESSION: Improvement in volume status. Pleural effusion right greater than left.
[2016-07-11] MEDS: PANTOPRAZOLE 40 MG/10 ML VIAL IV SCH (08:29)
[2016-07-11] MEDS: CHLORHEXIDINE GLUCONATE 15 ML CUP MUCOUS MEM SCH (08:29)
[2016-07-11] MEDS: FUROSEMIDE 10 MG/ML 4 ML VIAL IV SCH ×2 (08:30→20:25)
[2016-07-11] MEDS: HEPARIN SODIUM,PORCINE/D5W PMX 25,000 UNIT in DEXTROSE/WATER 1 500ML.BAG IV SCH (10:40)
[2016-07-11 12:26] LABS: Glucose,Whole Blood 130 mg/dL (75-99)
[2016-07-11] MEDS ORDERED: HYDROmorphone 1 MG/ML 1 ML SYRINGE IVP PRN (13:53)
--- NOTE | 2016-07-11 15:57 | P.PN ---
Subjective 56-year-old female that was admitted to the hospital after being treated for a GI bleed/UTI/respiratory issues as well. Patient was significantly hypoxic. Initial computed tomography scan of the chest revealed a left upper lobe territory pulmonary embolism. Patient was also noted to have significant fluid overload on the chest CT. Patient failed BiPAP therapy and hence was intubated overnight. This a.m. patient is currently on the ventilator on a minimal dose of propofol for sedation. Patient is nonresponsive currently on the ventilator at resprate of 12 tidal I will 450 FiO2 of 50% and PEEP of 5. No new overnight events are reported. 07/11/2016 Patient was activated 50 minutes prior to my examination. Patient was on supplement oxygen at 3 L was doing well. Patient is complaining of severe pain in her left lower extremity. Denies having any fevers, chills. No other overnight events reported. Objective - Vital Signs Vital signs: Vital Signs Temp 98.2 F 07/11/16 12:00 Pulse 96 07/11/16 15:36 Resp 18 07/11/16 15:00 BP 112/57 07/11/16 15:00 Pulse Ox 96 07/11/16 15:36 Intake & Output 07/10/16 07/11/16 07/11/16 18:59 06:59 18:59 Intake Total 2522.346 2039.915 1285.050 Output Total 2047 1645 1975 Balance -385.314 231.915 -689.950 Weight 60.4 kg 58.7 kg Intake: IV 1270 902.5 630 Piperacillin-Tazobactam 3 100 62.5 50 .375 gm In Dextrose/Water 1 50ml.bag @ 12.5 mls/hr IVPB Q8HR JANET Rx#: [id number] Potassium Chloride 20 meq 50 50 In Water For Injection 1 100ml.bag @ 50 mls/hr IVPB ONCE ONE Rx#: [id number] Sodium Chloride 0.9% 1, 790 580 000 ml @ 10 mls/hr IV . Q24H JANET Rx#:[id number] Sodium Chloride 0.9% 1, 870 0 000 ml @ 100 mls/hr IV . Q10H JANET Rx#:[id number] Vancomycin 1,000 mg In 250 Sodium Chloride 0.9% 250 ml @ 125 mls/hr IVPB Q16H JANET Rx#:[id number] Intake, IV Titration 381.686 544.415 355.050 Amount Heparin Sodium,Porcine/ 232.855 164.106 250.290 D5w Pmx 25,000 unit In Dextrose/Water 1 500ml. bag @ 18 UNITS/KG/HR 21. 71 mls/hr IV .Q23H2M JANET Rx#:[id number] Propofol 500 mg In Empty 148.831 130.309 104.760 Bag 1 bag @ Titrate IV . Q0M JANET Rx#:[id number] Vancomycin 1,000 mg In 250 Sodium Chloride 0.9% 250 ml @ 125 mls/hr IVPB Q16H JANET Rx#:[id number] Tube Feeding 10 340 270 Other 90 30 Output: Urine 2047 1645 1975 Other: Voiding Method Indwelling Catheter Indwelling Catheter Indwelling Catheter # Voids 35 ABP, PAP, CO, CI - Last Documented Arterial Blood Pressure 103/57 - Exam Gen. appearance awake appears to be in distress Lungs his breath sounds no crackles or rhonchi appreciated. Heart slightly tachycardic no murmurs appreciated Abdomen is soft no no organomegaly Lower extremities there is changes of dry gangrene on the left lower extremities on the toes. Neurologically moves all 4 extremities cranial nerves 2-12 grossly intact. - Labs CBC & Chem 7: 07/11/16 05:24 07/11/16 05:24 Labs: Abnormal Lab Results - Last 24 Hours (Table) 07/10/16 07/10/16 07/10/16 Range/Units 16:50 18:15 22:10 RBC (3.80-5.40) m/uL Hgb (11.4-16.0) gm/dL Hct (34.0-46.0) % APTT 105.2 H* (22.0-30.0) sec ABG pH (7.35-7.45) ABG pCO2 (35-45) mmHg ABG HCO3 (21-25) mmol/L ABG Total CO2 (19-24) mmol/L ABG O2 Saturation (94-97) % Potassium 3.2 L (3.5-5.1) mmol/L Glucose (74-99) mg/dL POC Glucose (mg/dL) 125 H (75-99) mg/dL Calcium (8.4-10.2) mg/dL 07/10/16 07/11/16 07/11/16 Range/Units 22:10 00:03 04:40 RBC (3.80-5.40) m/uL Hgb (11.4-16.0) gm/dL Hct (34.0-46.0) % APTT (22.0-30.0) sec ABG pH 7.54 H (7.35-7.45) ABG pCO2 31 L (35-45) mmHg ABG HCO3 27 H (21-25) mmol/L ABG Total CO2 28 H (19-24) mmol/L ABG O2 Saturation 99.0 H (94-97) % Potassium 3.1 L (3.5-5.1) mmol/L Glucose (74-99) mg/dL POC Glucose (mg/dL) 126 H (75-99) mg/dL Calcium (8.4-10.2) mg/dL 07/11/16 07/11/16 07/11/16 Range/Units 05:24 05:24 05:50 RBC 3.36 L (3.80-5.40) m/uL Hgb 9.9 L (11.4-16.0) gm/dL Hct 30.2 L (34.0-46.0) % APTT 46.2 H (22.0-30.0) sec ABG pH (7.35-7.45) ABG pCO2 (35-45) mmHg ABG HCO3 (21-25) mmol/L ABG Total CO2 (19-24) mmol/L ABG O2 Saturation (94-97) % Potassium (3.5-5.1) mmol/L Glucose 131 H (74-99) mg/dL POC Glucose (mg/dL) (75-99) mg/dL Calcium 8.0 L (8.4-10.2) mg/dL 07/11/16 Range/Units 12:23 RBC (3.80-5.40) m/uL Hgb (11.4-16.0) gm/dL Hct (34.0-46.0) % APTT (22.0-30.0) sec ABG pH (7.35-7.45) ABG pCO2 (35-45) mmHg ABG HCO3 (21-25) mmol/L ABG Total CO2 (19-24) mmol/L ABG O2 Saturation (94-97) % Potassium (3.5-5.1) mmol/L Glucose (74-99) mg/dL POC Glucose (mg/dL) 130 H (75-99) mg/dL Calcium (8.4-10.2) mg/dL Microbiology - Last 24 Hours (Table) 07/09/16 21:15 Urine Culture - Final Urine,Catheterized Assessment and Plan Plan: #1 acute hypoxic respiratory failure likely secondary to an acute exacerbation of congestive heart failure that is diastolic in nature. Underlying right lower lobe bacterial pneumonia cannot be excluded it would likely be gram- negative in nature and healthcare acquired in nature. #2 peripheral vascular disease with critical stenosis of the left common iliac artery #3 COPD #4 recent GI bleed #5 nephrolithiasis #6 left upper lobe PE that is questionable #7 mild to moderate protein calorie malnutrition Plan Patient has been extubated. Continue pain control. Patient apparently will need a stent placement in her iliac artery is a likely happened prior to her discharge. This was discussed with the patient's as well. Continue heparin at this time.
--- NOTE | 2016-07-11 16:58 | P.PN ---
Subjective This is a 56-year-old female patient who presented emergency department after 48 hours of being discharged from the hospital for worsening shortness of breath and respiratory failure. The patient was in significant respiratory distress at time of arrival tachypneic and tachycardic. She was briefly tried on BiPAP which she failed and she was unable to tolerate and based on that she was placed in the 100% nonrebreather facemask. A CT angios the chest was done which was officially reported as having questionable filling defect in the secondary and tertiary branches of the left upper lobe pulmonary artery however , the striking abnormalities on the CT angios the chest is extensive emphysema and increased interstitial prominence bilaterally more so on the right and development of compressive atelectasis moderate-sized right-sided pleural effusion and this is in comparison to the previous CAT scan imaging there was an approximately a week ago. All these findings are rather new and that is no evidence of any pulmonary fibrosis and the patient has some background advanced COPD. The patient denies having any chest pain. She has a congested cough that she is unable to bring up much sputum. No fever. No chills. No aspiration. No pleurisy. Denies having any recurrent bouts of pneumonias. Denies being on home oxygen Upon review of her medical records, the patient was in the hospital approximately a week ago for various complications. She was having issues with GI bleeding and as part of further investigation the patient had an EGD that showed gastritis and duodenitis pH was also found to have ischemic toes in her left foot. Based on that, I vascular consultation was obtained and the patient was diagnosed having gangrenous toes probably an embolic phenomenon and it was thought that the embolism is from the extensive peripheral vascular disease that the patient had specially involving the left common iliac artery. The patient was seen by vascular surgery and there were some plans to consider stenting of the left iliac with subsequent fem-fem bypass surgery and this was supposed to be done outpatient basis. Meanwhile, several toes in the left lower extremity remains quite gangrenous at this point. Note that the patient had a CTA done on 07/01/2016 and it showed atherosclerosis involving the abdominal aorta without aneurysm, atherosclerosis involving the right common iliac artery. Severe narrowing within the left common iliac artery specially at a 1 cm segment involving the vessel. The CT also showed a 1.6 cm calculus in the left renal pelvis with obstructive uropathy due to asymmetric enhancement of the left kidney. The bile duct was slightly dilated at 9 mm and the patient had a mildly enlarged (aortic valve measuring 1.2 cm in size. COPD and diffuse emphysema was noted in lung windows without evidence of any pulmonary fibrosis. The echocardiogram was also completed and it showed a relatively preserved LV function with an ejection fraction of around 45-50%. There was moderate tricuspid regurgitation and moderate pulmonary hypertension with an estimated PA pressure of around 54 mmHg. No other significant valvular abnormalities noted. On 07/10/2016 the patient is being seen in follow-up. The patient is currently intubated on a mechanical ventilator. Last evening, the patient became progressively more short of breath and she was at a point where she went into respiratory failure and at that point I intubated this patient put on a mechanical ventilator. She is currently on assist-control mode rate of 12, tidal volume 400, FiO2 of 60% and a PEEP of 5. Morning blood gases showed a pO2 of 100 yet the patient has a significant degree of respiratory alkalosis with a pCO2 of 33 and pH of 7.55. The chest x-ray still showing moderate vascular congestion/edema with a right-sided pleural effusion in the right lower lobe consolidation. She is afebrile. She is producing adequate amount of urine output and the net fluid balance is -8.1 L over the past 24 hours. The patient is still diuresing while on Lasix and she is receiving Lasix 40 mg every 8 hours [id number]. She has a CVP of 8. She is on Diprivan of 35 mics. She is also on IV heparin although the concern of pulmonary embolus is extremely low based on my evaluation please refer to my earlier notes in regards to this issue. The patient was also evaluated by vascular surgery and obviously the toes on the left foot are gangrenous and ultimately she will need amputation along with stenting of the left common iliac for a tight stenosis. The patient is still on a broad-spectrum antibiotic coverage including a combination of Zosyn and Levaquin and vancomycin. On 07/11/2016 the patient is being seen in follow-up. Earlier this morning the patient was on a mechanical ventilator on her usual vent settings and her blood gases from this morning showed a pH of 7.54 with a pCO2 of 31 and pO2 of 99. I was able to diuresis patient aggressively over the past 24 hours and she is at least 8 L negative. On today's evaluation, chest x-ray showing improvement in the volume status and that is still some residual right lower lobe pleural effusion. Nevertheless, her oxidation is improved significantly. I was able to give the patient a sedation holiday and checking her weaning parameters following that showed a rapid shallow breathing index of less than 80. As such , the patient was given a spelled his breathing trial and following that she was extubated to nasal cannula. Postextubation, the patient did well. No magistral distress at this point. No cough or sputum production. No chest pain. She is awake and following commands and answering questions appropriately. No signs of any ongoing respiratory distress at this point. Objective - Vital Signs Vital signs: Vital Signs Temp 98.3 F 07/11/16 16:00 Pulse 95 07/11/16 16:09 Resp 13 07/11/16 16:00 BP 108/71 07/11/16 16:00 Pulse Ox 98 07/11/16 16:00 Intake & Output 07/10/16 07/11/16 07/11/16 18:59 06:59 18:59 Intake Total 5128.956 0453.915 1460.830 Output Total 2047 1645 2060 Balance -385.314 231.915 -599.170 Weight 60.4 kg 58.7 kg Intake: IV 1270 902.5 650 Piperacillin-Tazobactam 3 100 62.5 50 .375 gm In Dextrose/Water 1 50ml.bag @ 12.5 mls/hr IVPB Q8HR JANET Rx#: [id number] Potassium Chloride 20 meq 50 50 In Water For Injection 1 100ml.bag @ 50 mls/hr IVPB ONCE ONE Rx#: [id number] Sodium Chloride 0.9% 1, 790 600 000 ml @ 10 mls/hr IV . Q24H JANET Rx#:[id number] Sodium Chloride 0.9% 1, 870 0 000 ml @ 100 mls/hr IV . Q10H JANET Rx#:[id number] Vancomycin 1,000 mg In 250 Sodium Chloride 0.9% 250 ml @ 125 mls/hr IVPB Q16H JANET Rx#:[id number] Intake, IV Titration 381.686 544.415 510.830 Amount Heparin Sodium,Porcine/ 232.855 164.106 406.070 D5w Pmx 25,000 unit In Dextrose/Water 1 500ml. bag @ 18 UNITS/KG/HR 21. 71 mls/hr IV .Q23H2M JANET Rx#:[id number] Propofol 500 mg In Empty 148.831 130.309 104.760 Bag 1 bag @ Titrate IV . Q0M JANET Rx#:[id number] Vancomycin 1,000 mg In 250 Sodium Chloride 0.9% 250 ml @ 125 mls/hr IVPB Q16H JANET Rx#:[id number] Tube Feeding 10 340 270 Other 90 30 Output: Urine 7 1645 2060 Other: Voiding Method Indwelling Catheter Indwelling Catheter Indwelling Catheter # Voids 35 ABP, PAP, CO, CI - Last Documented Arterial Blood Pressure 111/58 - Exam Patient is extubated early this morning. She is on oxygen by nasal cannula. Calm and comfortable. Head exam was generally normal. There was no scleral icterus or corneal arcus. Mucous membranes were moist. Neck is supple there is no JVDs no goiter or neck masses. The patient's lips are rather cyanotic at this point. Mucous membranes are extremely dry and the patient has poor oral dental hygiene. Lung sounds are markedly diminished in the right lung base along with some dullness. There is diminished breath sounds bilaterally and there is somewhat pronation of expiratory phase of breathing and scattered external wheezes. Heart sounds are tachycardic, positive S1-S2 and there is no S3 no S4 no murmurs could be appreciated.Abdominal exam revealed normal bowel sounds. The abdomen was soft, non-tender, and without masses, organomegaly, or appreciable enlargement of the abdominal aorta. Extremities shows skin mottling over the thighs bilaterally. Dorsalis pedis can be palpated bilaterally. The first second and the fifth toe are gangrenous and it patient has a dry gangrene. There is poor capillary refill. Trace edema. No cyanosis or clubbing. - Labs CBC & Chem 7: 07/11/16 05:24 07/11/16 05:24 Labs: Abnormal Lab Results - Last 24 Hours (Table) 07/10/16 07/10/16 07/10/16 Range/Units 16:50 18:15 22:10 RBC (3.80-5.40) m/uL Hgb (11.4-16.0) gm/dL Hct (34.0-46.0) % APTT 105.2 H* (22.0-30.0) sec ABG pH (7.35-7.45) ABG pCO2 (35-45) mmHg ABG HCO3 (21-25) mmol/L ABG Total CO2 (19-24) mmol/L ABG O2 Saturation (94-97) % Potassium 3.2 L (3.5-5.1) mmol/L Glucose (74-99) mg/dL POC Glucose (mg/dL) 125 H (75-99) mg/dL Calcium (8.4-10.2) mg/dL 07/10/16 07/11/16 07/11/16 Range/Units 22:10 00:03 04:40 RBC (3.80-5.40) m/uL Hgb (11.4-16.0) gm/dL Hct (34.0-46.0) % APTT (22.0-30.0) sec ABG pH 7.54 H (7.35-7.45) ABG pCO2 31 L (35-45) mmHg ABG HCO3 27 H (21-25) mmol/L ABG Total CO2 28 H (19-24) mmol/L ABG O2 Saturation 99.0 H (94-97) % Potassium 3.1 L (3.5-5.1) mmol/L Glucose (74-99) mg/dL POC Glucose (mg/dL) 126 H (75-99) mg/dL Calcium (8.4-10.2) mg/dL 07/11/16 07/11/16 07/11/16 Range/Units 05:24 05:24 05:50 RBC 3.36 L (3.80-5.40) m/uL Hgb 9.9 L (11.4-16.0) gm/dL Hct 30.2 L (34.0-46.0) % APTT 46.2 H (22.0-30.0) sec ABG pH (7.35-7.45) ABG pCO2 (35-45) mmHg ABG HCO3 (21-25) mmol/L ABG Total CO2 (19-24) mmol/L ABG O2 Saturation (94-97) % Potassium (3.5-5.1) mmol/L Glucose 131 H (74-99) mg/dL POC Glucose (mg/dL) (75-99) mg/dL Calcium 8.0 L (8.4-10.2) mg/dL 07/11/16 Range/Units 12:23 RBC (3.80-5.40) m/uL Hgb (11.4-16.0) gm/dL Hct (34.0-46.0) % APTT (22.0-30.0) sec ABG pH (7.35-7.45) ABG pCO2 (35-45) mmHg ABG HCO3 (21-25) mmol/L ABG Total CO2 (19-24) mmol/L ABG O2 Saturation (94-97) % Potassium (3.5-5.1) mmol/L Glucose (74-99) mg/dL POC Glucose (mg/dL) 130 H (75-99) mg/dL Calcium (8.4-10.2) mg/dL Microbiology - Last 24 Hours (Table) 07/09/16 21:15 Urine Culture - Final Urine,Catheterized Assessment and Plan Plan: Assessment 1 acute hypoxic respiratory failure. The patient is currently on 100% nonrebreather facemask and she was unable to tolerate BiPAP. There is significant otherwise on the computed tomography scan of the chest. There is increased infiltration of the right lung compared to the left in addition to extensive baseline emphysematous change bilaterally and development of a right- sided pleural effusion which is moderate in size and compressive atelectasis of the right lung base. Interestingly, the overall appearance looks like honeycombing on the CAT scan of the chest, yet, this patient does not have pulmonate fibrosis towards her lung disease and the findings on the CAT scan is mimicking pulmonary fibrosis but in fact it represents background emphysema with increased interstitial prominence probably related to CHF or superimposed pneumonia. I'm also not certain of the filling defects is were discussed by radiology. The patient has adequate opacification of the pulmonary arteries and the possibility of pulmonary embolism contributing to her respiratory failure is least of my concern at this point. On 07/10/2016, the patient is intubated on a mechanical ventilator. Chest x- ray still showing CHF/pulmonary edema with a right-sided pleural effusion along with a right lower lobe consolidation. She is diuresing excellent with IV Lasix and she is in a negative fluid balance of 8 L. Her blood gases from today is showing a component of acute respiratory alkalosis. Oxidation is improved and the pO2 is up to 100 with an FiO2 of 60% and a PEEP of 5. Echocardiogram is pending. The patient is also on broad-spectrum antibiotics including a combination of Zosyn and Levaquin and vancomycin. On 07/11/2016, the patient was weaned off the mechanical ventilated and the patient was extubated. Her chest x-ray shows improvement in the volume status. There is still some residual right lower lobe pleural effusion. She is still on IV Lasix. She is receiving antibiotic coverage with a combination of Zosyn and Levaquin and vancomycin. The vancomycin will be dropped at this point. 2 peripheral vascular disease with critical stenosis of the left common iliac artery 3 gangrenous toes related to her for an embolization probably from atherosclerosis of the left common iliac artery. The patient was seen by vascular surgery and outpatient vascular intervention was being planned. Unfortunately the patient would likely lose several toes if not part of her foot. 4 troponin leak 5 COPD 6 recent hospitalization for GI bleed secondary to duodenitis and gastritis 7 nicotine addiction/smoking 8 nephrolithiasis 9 recent treatment for E. coli urine checked infection and the patient was completing a course of ciprofloxacin on outpatient basis 10 debilitated condition with obvious signs of malnourishment and poor health maintenance Plan Continue Lasix and got Lasix dose to 40 mg every 12 hours. Echocardiogram is pending. Continue the Levaquin and Zosyn and drop the vancomycin at this point. We'll repeat a chest x-ray in the morning. Will monitor renal function and electrolytes as long as the patient is being aggressively diuresed. The patient was seen by vascular surgery. No need for any immediate intervention at this point and ultimately plan is to sit with a stenting of the common iliac artery and amputation of the gangrenous toes from the left foot. Please refer to the ventilation that was done by vascular surgery. Condition remains critical. We'll continue to follow make further recommendations accordingly. This is an evaluation that was done and 32 minutes. This is a critically care evaluation. Time with Patient: Greater than 30
[2016-07-11 17:34] LABS: Glucose,Whole Blood 109 mg/dL (75-99)
[2016-07-11] MEDS: CYCLOBENZAPRINE 10 MG TAB PO SCH (20:16)
[2016-07-11] MEDS: HYDROcodone/APAP 10-325MG 1 EACH TAB PO PRN (20:16)
[2016-07-11] MEDS: SODIUM CHLORIDE 0.9% 1,000 ML IV SCH (20:22)
[2016-07-11] MEDS: LEVOFLOXACIN 750MG-D5W PMX 750 MG in DEXTROSE/WATER 1 150ML.BAG IVPB SCH (22:45)
[2016-07-12 01:25] LABS: Glucose,Whole Blood 90 mg/dL (75-99)
[2016-07-12] MEDS: PIPERACILLIN-TAZOBACTAM 3.375 GM in DEXTROSE/WATER 1 50ML.BAG IVPB SCH ×4 (01:28→23:43)
[2016-07-12 05:20] LABS: Anion Gap 9 mmol/L; Blood Urea Nitrogen 19 mg/dL (7-17); Calcium 8.2 mg/dL (8.4-10.2); Carbon Dioxide 32 mmol/L (22-30); Chloride 101 mmol/L (98-107); Glucose 95 mg/dL (74-99); Magnesium 2.1 mg/dL (1.6-2.3); Non-African American GFR(MDRD) >60 (>60 ml/min/1.73 sqM); Sodium 142 mmol/L (137-145)
[2016-07-12] MEDS ORDERED: Potassium Replacement Protocol 1 EACH MISC MISCELLANE PRN (05:48)
[2016-07-12 06:21] LABS: Glucose,Whole Blood 95 mg/dL (75-99)
[2016-07-12] MEDS: INSULIN LISPRO (humaLOG) 300 UNIT/3 ML VIAL SQ SCH ×4 (06:28→20:43)
[2016-07-12] MEDS: POTASSIUM CHLORIDE ORAL LIQUID 40 MEQ/30 ML CUP NG-TUBE SCH ×2 (06:29→07:55)
[2016-07-12] MEDS ORDERED: VANCOMYCIN TROUGH DUE 1 EACH MISC MISCELLANE ONE (07:00)
[2016-07-12 07:16] LABS: Basophils % (A) 1 %; CH 29.3; CHCM 32.7; Eosinophils # (A) 0.2 k/uL (0-0.7); Eosinophils % (A) 4 %; HCT 30.1 % (34.0-46.0); HDW 3.06; HGB 9.5 gm/dL (11.4-16.0); Hypochromasia Slight; Luc # (Auto) 0.14; Luc % (Auto) 2; Lymphocytes # (A) 1.2 k/uL (1.0-4.8); Lymphocytes % (A) 17 %; MCH 28.6 pg (25.0-35.0); MCHC 31.7 g/dL (31.0-37.0); MCV 90.2 fL (80.0-100.0); Mean Platelet Volume 8.6; Monocytes # (A) 0.5 k/uL (0-1.0); Monocytes % (A) 7 %; Neutrophils # (A) 4.6 k/uL (1.3-7.7); Neutrophils % (A) 70 %; RBC 3.33 m/uL (3.80-5.40); RDW 15.1 % (11.5-15.5); WBC 6.7 k/uL (3.8-10.6); WBC (Perox) 6.48
[2016-07-12] MEDS: HYDROcodone/APAP 10-325MG 1 EACH TAB PO PRN ×3 (07:55→21:24)
--- NOTE | 2016-07-12 08:07 | XR ---
EXAMINATION TYPE: XR chest 1V DATE OF EXAM: 07/12/2016 6:33 AM COMPARISON: Prior chest x-ray June HISTORY: Pleural effusions TECHNIQUE: Single frontal view of the chest is obtained. FINDINGS: Interval extubation, removal of the NG tube and endotracheal tube. Subclavian central veno us catheter on the left stable. Heart size may be accentuated right rotation. Spinal curvature. There are overlying cardiac leads. Bibasilar increased density is present, there is blunting of the costop hrenic angles. IMPRESSION: Pleural effusions and associated atelectasis versus edema, correlate to exclude pneumoni a.
[2016-07-12] MEDS: LEVALBUTEROL NEB (CONC) 1.25 MG/0.5 ML AMP INHALATION SCH ×4 (08:32→19:00)
[2016-07-12] MEDS: IPRATROPIUM 0.5 MG/2.5 ML NEBU INHALATION SCH ×4 (08:32→19:00)
[2016-07-12] MEDS: FUROSEMIDE 10 MG/ML 4 ML VIAL IV SCH (08:44)
[2016-07-12] MEDS: PANTOPRAZOLE 40 MG/10 ML VIAL IV SCH (08:45)
[2016-07-12] MEDS: HEPARIN SODIUM,PORCINE/D5W PMX 25,000 UNIT in DEXTROSE/WATER 1 500ML.BAG IV SCH (08:54)
[2016-07-12 12:36] LABS: Glucose,Whole Blood 107 mg/dL (75-99)
--- NOTE | 2016-07-12 15:23 | P.PN ---
Subjective 56-year-old female that was admitted to the hospital after being treated for a GI bleed/UTI/respiratory issues as well. Patient was significantly hypoxic. Initial computed tomography scan of the chest revealed a left upper lobe territory pulmonary embolism. Patient was also noted to have significant fluid overload on the chest CT. Patient failed BiPAP therapy and hence was intubated overnight. This a.m. patient is currently on the ventilator on a minimal dose of propofol for sedation. Patient is nonresponsive currently on the ventilator at resprate of 12 tidal I will 450 FiO2 of 50% and PEEP of 5. No new overnight events are reported. 07/11/2016 Patient was activated 50 minutes prior to my examination. Patient was on supplement oxygen at 3 L was doing well. Patient is complaining of severe pain in her left lower extremity. Denies having any fevers, chills. No other overnight events reported. 07/12/2016 Patient states to be slightly improved however complains of pain in her left toes. Denies any fevers, chills, nausea, vomiting. She does have a cough that is productive of yellowish sputum. Objective - Vital Signs Vital signs: Vital Signs Temp 97.6 F 07/12/16 08:00 Pulse 87 07/12/16 15:17 Resp 17 07/12/16 13:00 BP 117/67 07/12/16 13:00 Pulse Ox 97 07/12/16 15:17 Intake & Output 07/11/16 07/12/16 07/12/16 18:59 06:59 18:59 Intake Total 1490.830 764.22 400.0 Output Total 2132 2055 1430 Balance -641.170 -1290.78 -1030.0 Weight 56.1 kg 56.1 kg Intake: IV 680 270.0 150.0 Piperacillin-Tazobactam 3 50 50.0 50.0 .375 gm In Dextrose/Water 1 50ml.bag @ 12.5 mls/hr IVPB Q8HR JANET Rx#: [id number] Sodium Chloride 0.9% 1, 630 220 100 000 ml @ 10 mls/hr IV . Q24H JANET Rx#:[id number] Intake, IV Titration 510.830 494.22 Amount Heparin Sodium,Porcine/ 406.070 344.22 D5w Pmx 25,000 unit In Dextrose/Water 1 500ml. bag @ 18 UNITS/KG/HR 21. 71 mls/hr IV .Q23H2M JANET Rx#:[id number] Levofloxacin 750Mg-D5w 150 Pmx 750 mg In Dextrose/ Water 1 150ml.bag @ 100 mls/hr IVPB Q48H JANET Rx#: [id number] Propofol 500 mg In Empty 104.760 Bag 1 bag @ Titrate IV . Q0M JANET Rx#:[id number] Oral 250 Tube Feeding 270 Other 30 Output: Urine 2132 2055 1430 Other: Voiding Method Indwelling Catheter Indwelling Catheter Indwelling Catheter ABP, PAP, CO, CI - Last Documented Arterial Blood Pressure 117/64 - Exam Gen. appearance awake appears to be in distress Lungs good air entry clear to auscultation no crackles appreciated today Heart regular rate and rhythm no murmurs appreciated. 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 Neurologically moves all 4 extremities cranial nerves 2-12 grossly intact. - Labs CBC & Chem 7: 07/12/16 04:33 07/12/16 10:10 Labs: Abnormal Lab Results - Last 24 Hours (Table) 07/11/16 07/11/16 07/12/16 Range/Units 17:30 17:33 04:33 RBC (3.80-5.40) m/uL Hgb (11.4-16.0) gm/dL Hct (34.0-46.0) % APTT 47.3 H (22.0-30.0) sec Potassium 3.0 L* (3.5-5.1) mmol/L Carbon Dioxide 32 H (22-30) mmol/L BUN 19 H (7-17) mg/dL POC Glucose (mg/dL) 109 H (75-99) mg/dL Calcium 8.2 L (8.4-10.2) mg/dL 07/12/16 07/12/16 07/12/16 Range/Units 04:33 04:33 12:34 RBC 3.33 L (3.80-5.40) m/uL Hgb 9.5 L (11.4-16.0) gm/dL Hct 30.1 L (34.0-46.0) % APTT 61.2 H (22.0-30.0) sec Potassium (3.5-5.1) mmol/L Carbon Dioxide (22-30) mmol/L BUN (7-17) mg/dL POC Glucose (mg/dL) 107 H (75-99) mg/dL Calcium (8.4-10.2) mg/dL Microbiology - Last 24 Hours (Table) 07/11/16 11:45 Gram Stain - Preliminary Sputum Sputum Culture - Preliminary Laurie albicans Assessment and Plan Plan: #1 acute hypoxic respiratory failure likely secondary to an acute exacerbation of congestive heart failure that is diastolic in nature. Underlying right lower lobe bacterial pneumonia cannot be excluded it would likely be gram- negative in nature and healthcare acquired in nature. #2 peripheral vascular disease with critical stenosis of the left common iliac artery #3 COPD #4 recent GI bleed #5 nephrolithiasis #6 left upper lobe PE that is questionable #7 mild to moderate protein calorie malnutrition #8 tachyphylaxis-induced congestive heart failure. Plan Continue ongoing care. Patient is currently on 2 L of o2. Patient can be triaged ICU. Continue heparin. We'll defer to Dr. Regan is in regards to the timing of the surgery. Patient is to be more stable. Heart failure is likely secondary to tachyphylaxis. Even though patient would be a high risk as patient would not be able to perform greater than 4 mets, however further testing is not indicated as patient would need the surgery in a more urgent fashion. This was discussed with the patient and she agrees to proceed with the surgery as long as vascular surgery is on the same page. Continue ongoing care.
--- NOTE | 2016-07-12 15:34 | P.PN ---
Subjective This is a 56-year-old female patient who presented emergency department after 48 hours of being discharged from the hospital for worsening shortness of breath and respiratory failure. The patient was in significant respiratory distress at time of arrival tachypneic and tachycardic. She was briefly tried on BiPAP which she failed and she was unable to tolerate and based on that she was placed in the 100% nonrebreather facemask. A CT angios the chest was done which was officially reported as having questionable filling defect in the secondary and tertiary branches of the left upper lobe pulmonary artery however , the striking abnormalities on the CT angios the chest is extensive emphysema and increased interstitial prominence bilaterally more so on the right and development of compressive atelectasis moderate-sized right-sided pleural effusion and this is in comparison to the previous CAT scan imaging there was an approximately a week ago. All these findings are rather new and that is no evidence of any pulmonary fibrosis and the patient has some background advanced COPD. The patient denies having any chest pain. She has a congested cough that she is unable to bring up much sputum. No fever. No chills. No aspiration. No pleurisy. Denies having any recurrent bouts of pneumonias. Denies being on home oxygen Upon review of her medical records, the patient was in the hospital approximately a week ago for various complications. She was having issues with GI bleeding and as part of further investigation the patient had an EGD that showed gastritis and duodenitis pH was also found to have ischemic toes in her left foot. Based on that, I vascular consultation was obtained and the patient was diagnosed having gangrenous toes probably an embolic phenomenon and it was thought that the embolism is from the extensive peripheral vascular disease that the patient had specially involving the left common iliac artery. The patient was seen by vascular surgery and there were some plans to consider stenting of the left iliac with subsequent fem-fem bypass surgery and this was supposed to be done outpatient basis. Meanwhile, several toes in the left lower extremity remains quite gangrenous at this point. Note that the patient had a CTA done on 07/01/2016 and it showed atherosclerosis involving the abdominal aorta without aneurysm, atherosclerosis involving the right common iliac artery. Severe narrowing within the left common iliac artery specially at a 1 cm segment involving the vessel. The CT also showed a 1.6 cm calculus in the left renal pelvis with obstructive uropathy due to asymmetric enhancement of the left kidney. The bile duct was slightly dilated at 9 mm and the patient had a mildly enlarged (aortic valve measuring 1.2 cm in size. COPD and diffuse emphysema was noted in lung windows without evidence of any pulmonary fibrosis. The echocardiogram was also completed and it showed a relatively preserved LV function with an ejection fraction of around 45-50%. There was moderate tricuspid regurgitation and moderate pulmonary hypertension with an estimated PA pressure of around 54 mmHg. No other significant valvular abnormalities noted. On 07/10/2016 the patient is being seen in follow-up. The patient is currently intubated on a mechanical ventilator. Last evening, the patient became progressively more short of breath and she was at a point where she went into respiratory failure and at that point I intubated this patient put on a mechanical ventilator. She is currently on assist-control mode rate of 12, tidal volume 400, FiO2 of 60% and a PEEP of 5. Morning blood gases showed a pO2 of 100 yet the patient has a significant degree of respiratory alkalosis with a pCO2 of 33 and pH of 7.55. The chest x-ray still showing moderate vascular congestion/edema with a right-sided pleural effusion in the right lower lobe consolidation. She is afebrile. She is producing adequate amount of urine output and the net fluid balance is -8.1 L over the past 24 hours. The patient is still diuresing while on Lasix and she is receiving Lasix 40 mg every 8 hours [id number]. She has a CVP of 8. She is on Diprivan of 35 mics. She is also on IV heparin although the concern of pulmonary embolus is extremely low based on my evaluation please refer to my earlier notes in regards to this issue. The patient was also evaluated by vascular surgery and obviously the toes on the left foot are gangrenous and ultimately she will need amputation along with stenting of the left common iliac for a tight stenosis. The patient is still on a broad-spectrum antibiotic coverage including a combination of Zosyn and Levaquin and vancomycin. On 07/11/2016 the patient is being seen in follow-up. Earlier this morning the patient was on a mechanical ventilator on her usual vent settings and her blood gases from this morning showed a pH of 7.54 with a pCO2 of 31 and pO2 of 99. I was able to diuresis patient aggressively over the past 24 hours and she is at least 8 L negative. On today's evaluation, chest x-ray showing improvement in the volume status and that is still some residual right lower lobe pleural effusion. Nevertheless, her oxidation is improved significantly. I was able to give the patient a sedation holiday and checking her weaning parameters following that showed a rapid shallow breathing index of less than 80. As such , the patient was given a spelled his breathing trial and following that she was extubated to nasal cannula. Postextubation, the patient did well. No magistral distress at this point. No cough or sputum production. No chest pain. She is awake and following commands and answering questions appropriately. No signs of any ongoing respiratory distress at this point. On 07/12/2016 the patient is being seen in follow-up. There is nothing significant improvement in the patient's condition over the past 24-48 hours. The patient was weaned off the mechanical ventilated and the patient was extubated. Today's chest x-ray shows significant improvement in the volume status and there is some residual right-sided pleural effusion still present. Nevertheless, the patient is only on 2 L of oxygen nasal cannula. Denies having any chest pain. No cough or sputum production. No fever or chills. She was having some pain in her left lower extremity nontender the patient has gangrenous toes related to previous embolization from a critically stenotic iliac artery. Vascular surgery is on the case and the ultimate plan is proceed with amputation at a later stage. The patient is also on IV heparin. Adequate pain control is being provided. Vancomycin was discontinued yesterday the patient is still on a combination of Zosyn and Levaquin. Objective - Vital Signs Vital signs: Vital Signs Temp 97.6 F 07/12/16 08:00 Pulse 87 07/12/16 15:17 Resp 17 07/12/16 13:00 BP 117/67 07/12/16 13:00 Pulse Ox 97 07/12/16 15:17 Intake & Output 07/11/16 07/12/16 07/12/16 18:59 06:59 18:59 Intake Total 1490.830 764.22 400.0 Output Total 21315 1430 Balance -641.170 -1290.78 -1030.0 Weight 56.1 kg 56.1 kg Intake: IV 680 270.0 150.0 Piperacillin-Tazobactam 3 50 50.0 50.0 .375 gm In Dextrose/Water 1 50ml.bag @ 12.5 mls/hr IVPB Q8HR [facility] Rx#: [id number] Sodium Chloride 0.9% 1, 630 220 100 000 ml @ 10 mls/hr IV . Q24H [facility] Rx#:[id number] Intake, IV Titration 510.830 494.22 Amount Heparin Sodium,Porcine/ 406.070 344.22 D5w Pmx 25,000 unit In Dextrose/Water 1 500ml. bag @ 18 UNITS/KG/HR 21. 71 mls/hr IV .Q23H2M [facility] Rx#:[id number] Levofloxacin 750Mg-D5w 150 Pmx 750 mg In Dextrose/ Water 1 150ml.bag @ 100 mls/hr IVPB Q48H [facility] Rx#: [id number] Propofol 500 mg In Empty 104.760 Bag 1 bag @ Titrate IV . Q0M [facility] Rx#:[id number] Oral 250 Tube Feeding 270 Other 30 Output: Urine 2132 2055 1430 Other: Voiding Method Indwelling Catheter Indwelling Catheter Indwelling Catheter ABP, PAP, CO, CI - Last Documented Arterial Blood Pressure 117/64 - Exam She is on oxygen by nasal cannula. Calm and comfortable. Head exam was generally normal. There was no scleral icterus or corneal arcus. Mucous membranes were moist. Neck is supple there is no JVDs no goiter or neck masses. The patient's lips are rather cyanotic at this point. Mucous membranes are extremely dry and the patient has poor oral dental hygiene. Lung sounds are markedly diminished in the right lung base along with some dullness. There is diminished breath sounds bilaterally and there is somewhat pronation of expiratory phase of breathing and scattered external wheezes. Heart sounds are tachycardic, positive S1-S2 and there is no S3 no S4 no murmurs could be appreciated.Abdominal exam revealed normal bowel sounds. The abdomen was soft, non-tender, and without masses, organomegaly, or appreciable enlargement of the abdominal aorta. Extremities are nonswollen. No cyanosis. Dorsalis pedis can be palpated bilaterally. The first second and the fifth toe are gangrenous and it patient has a dry gangrene. There is poor capillary refill. Trace edema. No cyanosis or clubbing. - Labs CBC & Chem 7: 07/12/16 04:33 07/12/16 10:10 Labs: Abnormal Lab Results - Last 24 Hours (Table) 07/11/16 07/11/16 07/12/16 Range/Units 17:30 17:33 04:33 RBC (3.80-5.40) m/uL Hgb (11.4-16.0) gm/dL Hct (34.0-46.0) % APTT 47.3 H (22.0-30.0) sec Potassium 3.0 L* (3.5-5.1) mmol/L Carbon Dioxide 32 H (22-30) mmol/L BUN 19 H (7-17) mg/dL POC Glucose (mg/dL) 109 H (75-99) mg/dL Calcium 8.2 L (8.4-10.2) mg/dL 07/12/16 07/12/16 07/12/16 Range/Units 04:33 04:33 12:34 RBC 3.33 L (3.80-5.40) m/uL Hgb 9.5 L (11.4-16.0) gm/dL Hct 30.1 L (34.0-46.0) % APTT 61.2 H (22.0-30.0) sec Potassium (3.5-5.1) mmol/L Carbon Dioxide (22-30) mmol/L BUN (7-17) mg/dL POC Glucose (mg/dL) 107 H (75-99) mg/dL Calcium (8.4-10.2) mg/dL Microbiology - Last 24 Hours (Table) 07/11/16 11:45 Gram Stain - Preliminary Sputum Sputum Culture - Preliminary Laurie albicans Assessment and Plan Plan: Assessment 1 acute hypoxic respiratory failure. The patient is currently on 100% nonrebreather facemask and she was unable to tolerate BiPAP. There is significant otherwise on the computed tomography scan of the chest. There is increased infiltration of the right lung compared to the left in addition to extensive baseline emphysematous change bilaterally and development of a right- sided pleural effusion which is moderate in size and compressive atelectasis of the right lung base. Interestingly, the overall appearance looks like honeycombing on the CAT scan of the chest, yet, this patient does not have pulmonate fibrosis towards her lung disease and the findings on the CAT scan is mimicking pulmonary fibrosis but in fact it represents background emphysema with increased interstitial prominence probably related to CHF or superimposed pneumonia. I'm also not certain of the filling defects is were discussed by radiology. The patient has adequate opacification of the pulmonary arteries and the possibility of pulmonary embolism contributing to her respiratory failure is least of my concern at this point. On 07/10/2016, the patient is intubated on a mechanical ventilator. Chest x- ray still showing CHF/pulmonary edema with a right-sided pleural effusion along with a right lower lobe consolidation. She is diuresing excellent with IV Lasix and she is in a negative fluid balance of 8 L. Her blood gases from today is showing a component of acute respiratory alkalosis. Oxidation is improved and the pO2 is up to 100 with an FiO2 of 60% and a PEEP of 5. Echocardiogram is pending. The patient is also on broad-spectrum antibiotics including a combination of Zosyn and Levaquin and vancomycin. On 07/11/2016, the patient was weaned off the mechanical ventilated and the patient was extubated. Her chest x-ray shows improvement in the volume status. There is still some residual right lower lobe pleural effusion. She is still on IV Lasix. She is receiving antibiotic coverage with a combination of Zosyn and Levaquin and vancomycin. The vancomycin will be dropped at this point. On 07/12/2016, the patient remains extubated. The patient is still being diuresis IV Lasix. Follow-up chest x-ray shows a small right-sided pleural effusion which is still present however overall volume status and the pulmonary edema has pretty much resolved. The patient is only on 2 L oxygen nasal cannula. Doubt any superimposed pneumonia at this point. The patient remains on IV heparin for a questionable pulmonary embolism involving the subsegmental branch and the left upper lobe. 2 peripheral vascular disease with critical stenosis of the left common iliac artery 3 gangrenous toes related to her for an embolization probably from atherosclerosis of the left common iliac artery. The patient was seen by vascular surgery and outpatient vascular intervention was being planned. Unfortunately the patient would likely lose several toes if not part of her foot. The patient is on IV heparin. The patient is experiencing some pain in the left foot which is well controlled at this point. 4 troponin leak 5 COPD 6 recent hospitalization for GI bleed secondary to duodenitis and gastritis 7 nicotine addiction/smoking 8 nephrolithiasis 9 recent treatment for E. coli urine checked infection and the patient was completing a course of ciprofloxacin on outpatient basis 10 debilitated condition with obvious signs of malnourishment and poor health maintenance Plan Continued IV heparin. Change the Lasix to 40 mg every 24 hours once a day. Discontinue the Zosyn and keep the patient only on Levaquin. No cough or pain control. Continue with our plan. Transfer this patient to medical floor with telemetry. Follow-up with vascular surgery in regards to the amputation of the gangrenous left toes and the critical stenosis involving the left common femoral artery.
[2016-07-12] MEDS ORDERED: POTASSIUM CHLORIDE ER 20 MEQ TAB.ER PO ONE (16:00)
[2016-07-12 17:22] LABS: Glucose,Whole Blood 96 mg/dL (75-99)
[2016-07-12 20:42] LABS: Glucose,Whole Blood 133 mg/dL (75-99)
[2016-07-12] MEDS: POTASSIUM CHLORIDE ER 20 MEQ TAB.ER PO SCH ×2 (20:42→22:35)
[2016-07-12] MEDS: CYCLOBENZAPRINE 10 MG TAB PO SCH (20:42)
[2016-07-12] MEDS: SODIUM CHLORIDE 0.9% 1,000 ML IV SCH (20:43)
[2016-07-13] MEDS: HEPARIN SODIUM,PORCINE/D5W PMX 25,000 UNIT in DEXTROSE/WATER 1 500ML.BAG IV SCH ×2 (03:27→23:45)
[2016-07-13] MEDS: HYDROcodone/APAP 10-325MG 1 EACH TAB PO PRN ×3 (03:30→22:11)
[2016-07-13 06:34] LABS: Anion Gap 10 mmol/L; Blood Urea Nitrogen 18 mg/dL (7-17); Calcium 8.5 mg/dL (8.4-10.2); Carbon Dioxide 32 mmol/L (22-30); Chloride 96 mmol/L (98-107); Glucose 92 mg/dL (74-99); Non-African American GFR(MDRD) >60 (>60 ml/min/1.73 sqM); Sodium 138 mmol/L (137-145)
[2016-07-13 07:48] LABS: Phosphorous 3.6 mg/dL (2.5-4.5)
--- NOTE | 2016-07-13 07:57 | XR ---
EXAMINATION TYPE: XR chest 1V DATE OF EXAM: 07/13/2016 7:22 AM COMPARISON: 07/12/2016 HISTORY: 56-year-old female pleural effusions TECHNIQUE: Single frontal view of the chest is obtained. FINDINGS: Heart is normal size. Aorta and pulmonary vasculature within normal limits. Band of atelectasis at th e left base. Persistent focal opacity and hazy density at the right base. Left subclavian CVC tip in the mid to lower SVC. IMPRESSION: Overall stable; persistent small right pleural effusion with adjacent atelectasis and/or consolidatio n. Suspect trace effusion on the left as well.
[2016-07-13 08:00] LABS: Glucose,Whole Blood 92 mg/dL (75-99)
[2016-07-13] MEDS: INSULIN LISPRO (humaLOG) 300 UNIT/3 ML VIAL SQ SCH ×4 (08:09→21:44)
[2016-07-13] MEDS ORDERED: POTASSIUM CHLORIDE 20 MEQ, LIDOCAINE 2% INJ 20 MG in SODIUM CHLORIDE 0.9% 100 ML IVPB ONE (08:46)
[2016-07-13] MEDS: IPRATROPIUM 0.5 MG/2.5 ML NEBU INHALATION SCH ×4 (09:07→19:58)
[2016-07-13] MEDS: LEVALBUTEROL NEB (CONC) 1.25 MG/0.5 ML AMP INHALATION SCH ×3 (09:07→19:58)
[2016-07-13] MEDS: FUROSEMIDE 10 MG/ML 4 ML VIAL IV SCH ×2 (09:44→12:52)
[2016-07-13] MEDS: PANTOPRAZOLE 40 MG/10 ML VIAL IV SCH (09:44)
[2016-07-13] MEDS: POTASSIUM CHLORIDE ER 20 MEQ TAB.ER PO SCH ×2 (11:27→12:25)
[2016-07-13] MEDS: PIPERACILLIN-TAZOBACTAM 3.375 GM in DEXTROSE/WATER 1 50ML.BAG IVPB SCH ×3 (11:27→23:37)
[2016-07-13 11:46] LABS: Glucose,Whole Blood 138 mg/dL (75-99)
[2016-07-13 13:34] LABS: Basophils % (A) 0 %; CH 29.1; CHCM 31.5; Eosinophils # (A) 0.3 k/uL (0-0.7); Eosinophils % (A) 4 %; HCT 33.8 % (34.0-46.0); HDW 3.12; HGB 10.6 gm/dL (11.4-16.0); Hypochromasia Slight; Luc # (Auto) 0.17; Luc % (Auto) 2; Lymphocytes # (A) 1.4 k/uL (1.0-4.8); Lymphocytes % (A) 19 %; MCH 29.3 pg (25.0-35.0); MCHC 31.5 g/dL (31.0-37.0); Mean Platelet Volume 8.9; Monocytes # (A) 0.6 k/uL (0-1.0); Monocytes % (A) 8 %; Neutrophils # (A) 4.6 k/uL (1.3-7.7); Neutrophils % (A) 65 %; RBC 3.64 m/uL (3.80-5.40); WBC (Perox) 7.61
--- NOTE | 2016-07-13 14:22 | P.PN ---
Subjective This is a 56-year-old female patient who presented emergency department after 48 hours of being discharged from the hospital for worsening shortness of breath and respiratory failure. The patient was in significant respiratory distress at time of arrival tachypneic and tachycardic. She was briefly tried on BiPAP which she failed and she was unable to tolerate and based on that she was placed in the 100% nonrebreather facemask. A CT angios the chest was done which was officially reported as having questionable filling defect in the secondary and tertiary branches of the left upper lobe pulmonary artery however , the striking abnormalities on the CT angios the chest is extensive emphysema and increased interstitial prominence bilaterally more so on the right and development of compressive atelectasis moderate-sized right-sided pleural effusion and this is in comparison to the previous CAT scan imaging there was an approximately a week ago. All these findings are rather new and that is no evidence of any pulmonary fibrosis and the patient has some background advanced COPD. she had developed worsening pulmonary status requiring intubation mechanical ventilation. She was initially evaluated in the intensive care unit. She is seen again today in follow-up on 07/13/2016 on the regular medical floor. She is awake and alert in no acute distress. She is improved significantly from the pulmonary standpoint. She is maintaining good O2 saturations in the mid 90s on 2 L/m per nasal cannula. She is currently afebrile. She's been up ambulating with assistance. Her chest x-ray does show improved aeration. There is still small bilateral pleural effusions. Objective - Vital Signs Vital signs: Vital Signs Temp 97.4 F L 07/13/16 07:00 Pulse 92 07/13/16 09:17 Resp 16 07/13/16 08:00 BP 103/57 07/13/16 07:00 Pulse Ox 90 L 07/13/16 07:00 Intake & Output 07/12/16 07/13/16 07/13/16 18:59 06:59 18:59 Intake Total 500.0 489.872 98.787 Output Total 1740 600 Balance -1240.0 -110.128 98.787 Weight 56.1 kg 54 kg Intake: IV 250.0 20 Piperacillin-Tazobactam 3 50.0 .375 gm In Dextrose/Water 1 50ml.bag @ 12.5 mls/hr IVPB Q8HR [facility] Rx#: [id number] Sodium Chloride 0.9% 1, 200 20 000 ml @ 10 mls/hr IV . Q24H [facility] Rx#:[id number] Intake, IV Titration 469.872 98.787 Amount Heparin Sodium,Porcine/ 469.872 98.787 D5w Pmx 25,000 unit In Dextrose/Water 1 500ml. bag @ 18 UNITS/KG/HR 21. 71 mls/hr IV .Q23H2M [facility] Rx#:[id number] Oral 250 Output: Urine 1740 600 Straight 600 Other: Voiding Method Indwelling Catheter Indwelling Catheter Bedside Commode # Voids 0 # Bowel Movements 1 ABP, PAP, CO, CI - Last Documented Arterial Blood Pressure 112/59 - Exam GENERAL EXAM: Alert, comfortable in no apparent distress. HEAD: Normocephalic. EYES: Normal reaction of pupils, equal size. NOSE: Clear with pink turbinates. THROAT: No erythema or exudates. NECK: No masses, no JVD. CHEST: No chest wall deformity. LUNGS: Equal air entry with faint crackles in the posterior bases. Diminished. CVS: S1 and S2 normal with no audible murmurs, regular rhythm. ABDOMEN: No hepatosplenomegaly, normal bowel sounds, no guarding or rigidity. Extremities: There is no significant peripheral edema. She does have cyanotic toes on the left foot. Peripheral pulses are intact. - Labs CBC & Chem 7: 07/13/16 06:15 07/13/16 06:15 Labs: Abnormal Lab Results - Last 24 Hours (Table) 07/12/16 07/12/16 07/13/16 Range/Units 18:40 20:41 06:15 RBC (3.80-5.40) m/uL Hgb (11.4-16.0) gm/dL Hct (34.0-46.0) % APTT (22.0-30.0) sec Potassium 3.3 L 3.0 L* (3.5-5.1) mmol/L Chloride 96 L (98-107) mmol/L Carbon Dioxide 32 H (22-30) mmol/L BUN 18 H (7-17) mg/dL POC Glucose (mg/dL) 133 H (75-99) mg/dL 07/13/16 07/13/16 07/13/16 Range/Units 06:15 06:15 11:37 RBC 3.64 L (3.80-5.40) m/uL Hgb 10.6 L (11.4-16.0) gm/dL Hct 33.8 L (34.0-46.0) % APTT 69.6 H (22.0-30.0) sec Potassium (3.5-5.1) mmol/L Chloride (98-107) mmol/L Carbon Dioxide (22-30) mmol/L BUN (7-17) mg/dL POC Glucose (mg/dL) 138 H (75-99) mg/dL Microbiology - Last 24 Hours (Table) 07/11/16 11:45 Gram Stain - Final Sputum Sputum Culture - Final Laurie albicans Assessment and Plan Plan: Impression: #1 Acute hypoxic respiratory failure secondary to extensive baseline emphysema medical changes and right pleural effusion with compressive atelectasis of the right lung base. 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 There is impaired left ventricular systolic function with estimated ejection fraction between 45 and 50%. #3 acute exacerbation of severe chronic obstructive pulmonary disease. #4 Moderate pulmonary hypertension, RVSP 54 mmHg. #5 peripheral vascular disease with critical stenosis of the left common iliac artery. #6 Gangrenous toes secondary to embolization probably from atherosclerosis of the left common iliac artery. Remains on IV heparin. #7 Recent hospitalization for GI bleed secondary to duodenitis and gastritis. #8 Chronic and ongoing nicotine addiction. #9 Nephrolithiasis. #10 Recent treatment for E. coli urinary tract infection completing a course of Cipro floxacillin in the outpatient setting. #11 Poor overall functional performance secondary to the above-mentioned multiple comorbidities. Plan: The patient was seen and evaluated by Dr. Jara. We'll continue with the patient's current medications including antibiotics in the form of Levaquin. She is receiving Lasix 40 mg daily. We'll increase her activity as tolerated. We'll request vascular surgery to reevaluate for possible amputation of the gangrenous toes and possible stenting of left common femoral artery. She remains on IV heparin. We'll continue to follow make further recommendations based on her clinical status.
--- NOTE | 2016-07-13 15:56 | P.PN ---
Subjective 56-year-old female that was admitted to the hospital after being treated for a GI bleed/UTI/respiratory issues as well. Patient was significantly hypoxic. Initial computed tomography scan of the chest revealed a left upper lobe territory pulmonary embolism. Patient was also noted to have significant fluid overload on the chest CT. Patient failed BiPAP therapy and hence was intubated overnight. This a.m. patient is currently on the ventilator on a minimal dose of propofol for sedation. Patient is nonresponsive currently on the ventilator at resprate of 12 tidal I will 450 FiO2 of 50% and PEEP of 5. No new overnight events are reported. 07/11/2016 Patient was activated 50 minutes prior to my examination. Patient was on supplement oxygen at 3 L was doing well. Patient is complaining of severe pain in her left lower extremity. Denies having any fevers, chills. No other overnight events reported. 07/12/2016 Patient states to be slightly improved however complains of pain in her left toes. Denies any fevers, chills, nausea, vomiting. She does have a cough that is productive of yellowish sputum. 07/13/2016 Patient is currently off oxygen states to have no new complains. States that her pain is barely tolerable on IV pain medications. Denies having fevers, chills, nausea, vomiting, urinary urgency or frequency at this time. Objective - Vital Signs Vital signs: Vital Signs Temp 97.4 F L 07/13/16 07:00 Pulse 92 07/13/16 09:17 Resp 16 07/13/16 08:00 BP 103/57 07/13/16 07:00 Pulse Ox 90 L 07/13/16 07:00 Intake & Output 07/12/16 07/13/16 07/13/16 18:59 06:59 18:59 Intake Total 500.0 489.872 98.787 Output Total 1740 600 Balance -1240.0 -110.128 98.787 Weight 56.1 kg 54 kg Intake: IV 250.0 20 Piperacillin-Tazobactam 3 50.0 .375 gm In Dextrose/Water 1 50ml.bag @ 12.5 mls/hr IVPB Q8HR [facility] Rx#: [id number] Sodium Chloride 0.9% 1, 200 20 000 ml @ 10 mls/hr IV . Q24H [facility] Rx#:[id number] Intake, IV Titration 469.872 98.787 Amount Heparin Sodium,Porcine/ 469.872 98.787 D5w Pmx 25,000 unit In Dextrose/Water 1 500ml. bag @ 18 UNITS/KG/HR 21. 71 mls/hr IV .Q23H2M [facility] Rx#:[id number] Oral 250 Output: Urine 1740 600 Straight 600 Other: Voiding Method Indwelling Catheter Indwelling Catheter Bedside Commode # Voids 0 # Bowel Movements 1 ABP, PAP, CO, CI - Last Documented Arterial Blood Pressure 112/59 - Exam Gen. appearance awake appears to be in distress Lungs good air entry clear to auscultation no crackles appreciated today Heart regular rate and rhythm no murmurs appreciated. 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 Neurologically moves all 4 extremities cranial nerves 2-12 grossly intact. - Labs CBC & Chem 7: 07/13/16 06:15 07/13/16 06:15 Labs: Abnormal Lab Results - Last 24 Hours (Table) 07/12/16 07/12/16 07/13/16 Range/Units 18:40 20:41 06:15 RBC (3.80-5.40) m/uL Hgb (11.4-16.0) gm/dL Hct (34.0-46.0) % APTT (22.0-30.0) sec Potassium 3.3 L 3.0 L* (3.5-5.1) mmol/L Chloride 96 L (98-107) mmol/L Carbon Dioxide 32 H (22-30) mmol/L BUN 18 H (7-17) mg/dL POC Glucose (mg/dL) 133 H (75-99) mg/dL 07/13/16 07/13/16 07/13/16 Range/Units 06:15 06:15 11:37 RBC 3.64 L (3.80-5.40) m/uL Hgb 10.6 L (11.4-16.0) gm/dL Hct 33.8 L (34.0-46.0) % APTT 69.6 H (22.0-30.0) sec Potassium (3.5-5.1) mmol/L Chloride (98-107) mmol/L Carbon Dioxide (22-30) mmol/L BUN (7-17) mg/dL POC Glucose (mg/dL) 138 H (75-99) mg/dL Microbiology - Last 24 Hours (Table) 07/11/16 11:45 Gram Stain - Final Sputum Sputum Culture - Final Laurie albicans Assessment and Plan Plan: #1 acute hypoxic respiratory failure likely secondary to an acute exacerbation of congestive heart failure that is diastolic in nature. Underlying right lower lobe bacterial pneumonia cannot be excluded it would likely be gram- negative in nature and healthcare acquired in nature. #2 peripheral vascular disease with critical stenosis of the left common iliac artery #3 COPD #4 recent GI bleed #5 nephrolithiasis #6 left upper lobe PE that is questionable #7 mild to moderate protein calorie malnutrition #8 tachyphylaxis-induced congestive heart failure. Plan Patient appears to be stable continue pain management with IV Dilaudid. Continue heparin. Spoke to Dr. Harmon regarding timing of surgery. I did discuss due to significant pain patient will likely be continued on IV heparin and would benefit from undergo an amputation of the toes and a open stent to the left iliac artery.. Patient is to be more stable. Heart failure is likely secondary to tachyphylaxis. Even though patient would be a high risk as patient would not be able to perform greater than 4 mets, however further testing is not indicated as patient would need the surgery in a more urgent fashion. This was discussed with the patient and she agrees to proceed with the surgery as long as vascular surgery is on the same page. Continue ongoing care.
[2016-07-13 17:17] LABS: Glucose,Whole Blood 107 mg/dL (75-99)
[2016-07-13] MEDS: LEVOFLOXACIN 750MG-D5W PMX 750 MG in DEXTROSE/WATER 1 150ML.BAG IVPB SCH (20:32)
[2016-07-13] MEDS: CYCLOBENZAPRINE 10 MG TAB PO SCH (20:32)
[2016-07-13 21:09] LABS: Glucose,Whole Blood 120 mg/dL (75-99)
[2016-07-14 06:48] LABS: Basophils # (A) 0.1 k/uL (0-0.2); Basophils % (A) 1 %; CH 29.1; CHCM 32.8; Eosinophils # (A) 0.2 k/uL (0-0.7); Eosinophils % (A) 3 %; HCT 32.8 % (34.0-46.0); HDW 3.12; HGB 10.4 gm/dL (11.4-16.0); Hypochromasia Slight; Luc # (Auto) 0.15; Luc % (Auto) 2; Lymphocytes # (A) 1.3 k/uL (1.0-4.8); Lymphocytes % (A) 20 %; MCH 28.4 pg (25.0-35.0); MCHC 31.7 g/dL (31.0-37.0); MCV 89.4 fL (80.0-100.0); Mean Platelet Volume 8.1; Monocytes # (A) 0.6 k/uL (0-1.0); Monocytes % (A) 9 %; Neutrophils # (A) 4.4 k/uL (1.3-7.7); Neutrophils % (A) 66 %; RBC 3.67 m/uL (3.80-5.40); RDW 14.9 % (11.5-15.5); WBC 6.7 k/uL (3.8-10.6); WBC (Perox) 6.96
[2016-07-14 06:58] LABS: ALT 49 U/L (9-52); AST 28 U/L (14-36); Alkaline Phosphatase 69 U/L (38-126); Anion Gap 9 mmol/L; Blood Urea Nitrogen 17 mg/dL (7-17); Calcium 8.6 mg/dL (8.4-10.2); Carbon Dioxide 30 mmol/L (22-30); Chloride 101 mmol/L (98-107); Glucose 97 mg/dL (74-99); Non-African American GFR(MDRD) >60 (>60 ml/min/1.73 sqM); Potassium 3.2 mmol/L (3.5-5.1); Sodium 140 mmol/L (137-145); Total Bilirubin 0.6 mg/dL (0.2-1.3); Total Protein 5.7 g/dL (6.3-8.2)
[2016-07-14] MEDS: SODIUM CHLORIDE 0.9% 1,000 ML IV SCH ×2 (07:00→21:17)
[2016-07-14 07:22] LABS: Glucose,Whole Blood 99 mg/dL (75-99)
[2016-07-14] MEDS: INSULIN LISPRO (humaLOG) 300 UNIT/3 ML VIAL SQ SCH ×4 (07:33→21:16)
[2016-07-14] MEDS: LEVALBUTEROL NEB (CONC) 1.25 MG/0.5 ML AMP INHALATION SCH ×4 (07:34→19:20)
[2016-07-14] MEDS: IPRATROPIUM 0.5 MG/2.5 ML NEBU INHALATION SCH ×4 (07:34→19:20)
--- NOTE | 2016-07-14 07:57 | XR ---
EXAMINATION TYPE: XR chest 1V DATE OF EXAM: 07/14/2016 7:45 AM COMPARISON: 07/13/2016 HISTORY: 56-year-old female follow-up pleural effusions TECHNIQUE: Single frontal view of the chest is obtained. FINDINGS: Heart is normal size. Aorta and pulmonary vasculature within normal limits. Mild hyperinflation, susp ect underlying COPD. Left subclavian CVC tip at the mid SVC level. There is improving pleural effusio n on the right with suspected residual trace effusion. There is some residual patchy right basilar op acity as well and strandy atelectasis/scarring at the left base. IMPRESSION: Improving pleural effusions, suspect trace on both sides now. Residual patchy right basilar atelectas is and/or consolidation.
[2016-07-14] MEDS: PIPERACILLIN-TAZOBACTAM 3.375 GM in DEXTROSE/WATER 1 50ML.BAG IVPB SCH (08:10)
[2016-07-14] MEDS: PANTOPRAZOLE 40 MG/10 ML VIAL IV SCH (08:11)
[2016-07-14] MEDS: FUROSEMIDE 10 MG/ML 4 ML VIAL IV SCH (08:11)
[2016-07-14 10:26] LABS: Magnesium 1.9 mg/dL (1.6-2.3); Phosphorous 3.1 mg/dL (2.5-4.5)
[2016-07-14] MEDS ORDERED: POTASSIUM CHLORIDE ER 20 MEQ TAB.ER PO STA (10:37)
[2016-07-14] MEDS: HYDROcodone/APAP 10-325MG 1 EACH TAB PO PRN ×2 (10:58→17:10)
[2016-07-14 11:39] LABS: Glucose,Whole Blood 109 mg/dL (75-99)
--- NOTE | 2016-07-14 11:56 | P.PN ---
Subjective 56-year-old female that was admitted to the hospital after being treated for a GI bleed/UTI/respiratory issues as well. Patient was significantly hypoxic. Initial computed tomography scan of the chest revealed a left upper lobe territory pulmonary embolism. Patient was also noted to have significant fluid overload on the chest CT. Patient failed BiPAP therapy and hence was intubated overnight. This a.m. patient is currently on the ventilator on a minimal dose of propofol for sedation. Patient is nonresponsive currently on the ventilator at resprate of 12 tidal I will 450 FiO2 of 50% and PEEP of 5. No new overnight events are reported. 07/11/2016 Patient was activated 50 minutes prior to my examination. Patient was on supplement oxygen at 3 L was doing well. Patient is complaining of severe pain in her left lower extremity. Denies having any fevers, chills. No other overnight events reported. 07/12/2016 Patient states to be slightly improved however complains of pain in her left toes. Denies any fevers, chills, nausea, vomiting. She does have a cough that is productive of yellowish sputum. 07/13/2016 Patient is currently off oxygen states to have no new complains. States that her pain is barely tolerable on IV pain medications. Denies having fevers, chills, nausea, vomiting, urinary urgency or frequency at this time. 07/14/2016 Patient denies having any fevers, chills, nausea, vomiting, diarrhea. Currently has not had a bowel movement in over 4 days. Objective - Vital Signs Vital signs: Vital Signs Temp 97.9 F 07/14/16 07:00 Pulse 85 07/14/16 07:00 Resp 16 07/14/16 08:00 BP 122/58 07/14/16 07:00 Pulse Ox 99 07/14/16 07:00 Intake & Output 07/13/16 07/14/16 07/14/16 18:59 06:59 18:59 Intake Total 318.787 801.213 197.996 Balance 318.787 801.213 197.996 Weight 55 kg Intake: IV 120 Piperacillin-Tazobactam 3 50 .375 gm In Dextrose/Water 1 50ml.bag @ 12.5 mls/hr IVPB Q8HR [facility] Rx#: [id number] Sodium Chloride 0.9% 1, 70 000 ml @ 10 mls/hr IV . Q24H [facility] Rx#:[id number] Intake, IV Titration 198.787 401.213 197.996 Amount Heparin Sodium,Porcine/ 98.787 401.213 197.996 D5w Pmx 25,000 unit In Dextrose/Water 1 500ml. bag @ 18 UNITS/KG/HR 21. 71 mls/hr IV .Q23H2M [facility] Rx#:[id number] Potassium Chloride 20 meq 100 Lidocaine 2% Inj 20 mg In Sodium Chloride 0.9% 100 ml @ 55.5 mls/hr IVPB ONCE ONE Rx#:[id number] Oral 400 Other: Voiding Method Bedside Commode Bedside Commode Bedside Commode # Voids 1 ABP, PAP, CO, CI - Last Documented Arterial Blood Pressure 112/59 - Exam Gen. appearance awake appears to be in distress Lungs good air entry clear to auscultation no crackles appreciated today Heart regular rate and rhythm no murmurs appreciated. 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 Neurologically moves all 4 extremities cranial nerves 2-12 grossly intact. - Labs CBC & Chem 7: 07/14/16 06:30 07/14/16 06:30 Labs: Abnormal Lab Results - Last 24 Hours (Table) 07/13/16 07/13/16 07/13/16 Range/Units 06:15 17:13 20:39 RBC 3.64 L (3.80-5.40) m/uL Hgb 10.6 L (11.4-16.0) gm/dL Hct 33.8 L (34.0-46.0) % APTT (22.0-30.0) sec Potassium (3.5-5.1) mmol/L POC Glucose (mg/dL) 107 H 120 H (75-99) mg/dL Total Protein (6.3-8.2) g/dL Albumin (3.5-5.0) g/dL 07/14/16 07/14/16 07/14/16 Range/Units 06:30 06:30 06:30 RBC 3.67 L (3.80-5.40) m/uL Hgb 10.4 L (11.4-16.0) gm/dL Hct 32.8 L (34.0-46.0) % APTT 87.4 H (22.0-30.0) sec Potassium 3.2 L (3.5-5.1) mmol/L POC Glucose (mg/dL) (75-99) mg/dL Total Protein 5.7 L (6.3-8.2) g/dL Albumin 2.8 L (3.5-5.0) g/dL 07/14/16 Range/Units 11:36 RBC (3.80-5.40) m/uL Hgb (11.4-16.0) gm/dL Hct (34.0-46.0) % APTT (22.0-30.0) sec Potassium (3.5-5.1) mmol/L POC Glucose (mg/dL) 109 H (75-99) mg/dL Total Protein (6.3-8.2) g/dL Albumin (3.5-5.0) g/dL Microbiology - Last 24 Hours (Table) 07/11/16 11:45 Gram Stain - Final Sputum Sputum Culture - Final Laurie albicans Assessment and Plan Plan: #1 acute hypoxic respiratory failure likely secondary to an acute exacerbation of congestive heart failure that is diastolic in nature. Underlying right lower lobe bacterial pneumonia cannot be excluded it would likely be gram- negative in nature and healthcare acquired in nature. #2 peripheral vascular disease with critical stenosis of the left common iliac artery #3 COPD #4 recent GI bleed #5 nephrolithiasis #6 left upper lobe PE that is questionable #7 mild to moderate protein calorie malnutrition #8 tachyphylaxis-induced congestive heart failure. #9 hypokalemia will be replaced. Patient's diuretics will be titrated down to 40 mg IV daily. Plan Patient appears to be stable continue pain management with IV Dilaudid. Continue heparin. Spoke to Dr. Harmon regarding timing of surgery. I did discuss due to significant pain patient will likely be continued on IV heparin and would benefit from undergo an amputation of the toes and a open stent to the left iliac artery.. Patient is to be more stable. Heart failure is likely secondary to tachyphylaxis. Even though patient would be a high risk as patient would not be able to perform greater than 4 mets, however further testing is not indicated as patient would need the surgery in a more urgent fashion. This was discussed with the patient and she agrees to proceed with the surgery as long as vascular surgery is on the same page. Continue ongoing care.
[2016-07-14] MEDS ORDERED: POTASSIUM CHLORIDE ER 20 MEQ TAB.ER PO ONE (12:39)
--- NOTE | 2016-07-14 14:53 | P.PN ---
Subjective This is a 56-year-old female patient who presented emergency department after 48 hours of being discharged from the hospital for worsening shortness of breath and respiratory failure. The patient was in significant respiratory distress at time of arrival tachypneic and tachycardic. She was briefly tried on BiPAP which she failed and she was unable to tolerate and based on that she was placed in the 100% nonrebreather facemask. A CT angios the chest was done which was officially reported as having questionable filling defect in the secondary and tertiary branches of the left upper lobe pulmonary artery however , the striking abnormalities on the CT angios the chest is extensive emphysema and increased interstitial prominence bilaterally more so on the right and development of compressive atelectasis moderate-sized right-sided pleural effusion and this is in comparison to the previous CAT scan imaging there was an approximately a week ago. All these findings are rather new and that is no evidence of any pulmonary fibrosis and the patient has some background advanced COPD. The patient denies having any chest pain. She has a congested cough that she is unable to bring up much sputum. No fever. No chills. No aspiration. No pleurisy. Denies having any recurrent bouts of pneumonias. Denies being on home oxygen Upon review of her medical records, the patient was in the hospital approximately a week ago for various complications. She was having issues with GI bleeding and as part of further investigation the patient had an EGD that showed gastritis and duodenitis pH was also found to have ischemic toes in her left foot. Based on that, I vascular consultation was obtained and the patient was diagnosed having gangrenous toes probably an embolic phenomenon and it was thought that the embolism is from the extensive peripheral vascular disease that the patient had specially involving the left common iliac artery. The patient was seen by vascular surgery and there were some plans to consider stenting of the left iliac with subsequent fem-fem bypass surgery and this was supposed to be done outpatient basis. Meanwhile, several toes in the left lower extremity remains quite gangrenous at this point. Note that the patient had a CTA done on 07/01/2016 and it showed atherosclerosis involving the abdominal aorta without aneurysm, atherosclerosis involving the right common iliac artery. Severe narrowing within the left common iliac artery specially at a 1 cm segment involving the vessel. The CT also showed a 1.6 cm calculus in the left renal pelvis with obstructive uropathy due to asymmetric enhancement of the left kidney. The bile duct was slightly dilated at 9 mm and the patient had a mildly enlarged (aortic valve measuring 1.2 cm in size. COPD and diffuse emphysema was noted in lung windows without evidence of any pulmonary fibrosis. The echocardiogram was also completed and it showed a relatively preserved LV function with an ejection fraction of around 45-50%. There was moderate tricuspid regurgitation and moderate pulmonary hypertension with an estimated PA pressure of around 54 mmHg. No other significant valvular abnormalities noted. On 07/10/2016 the patient is being seen in follow-up. The patient is currently intubated on a mechanical ventilator. Last evening, the patient became progressively more short of breath and she was at a point where she went into respiratory failure and at that point I intubated this patient put on a mechanical ventilator. She is currently on assist-control mode rate of 12, tidal volume 400, FiO2 of 60% and a PEEP of 5. Morning blood gases showed a pO2 of 100 yet the patient has a significant degree of respiratory alkalosis with a pCO2 of 33 and pH of 7.55. The chest x-ray still showing moderate vascular congestion/edema with a right-sided pleural effusion in the right lower lobe consolidation. She is afebrile. She is producing adequate amount of urine output and the net fluid balance is -8.1 L over the past 24 hours. The patient is still diuresing while on Lasix and she is receiving Lasix 40 mg every 8 hours [id number]. She has a CVP of 8. She is on Diprivan of 35 mics. She is also on IV heparin although the concern of pulmonary embolus is extremely low based on my evaluation please refer to my earlier notes in regards to this issue. The patient was also evaluated by vascular surgery and obviously the toes on the left foot are gangrenous and ultimately she will need amputation along with stenting of the left common iliac for a tight stenosis. The patient is still on a broad-spectrum antibiotic coverage including a combination of Zosyn and Levaquin and vancomycin. On 07/11/2016 the patient is being seen in follow-up. Earlier this morning the patient was on a mechanical ventilator on her usual vent settings and her blood gases from this morning showed a pH of 7.54 with a pCO2 of 31 and pO2 of 99. I was able to diuresis patient aggressively over the past 24 hours and she is at least 8 L negative. On today's evaluation, chest x-ray showing improvement in the volume status and that is still some residual right lower lobe pleural effusion. Nevertheless, her oxidation is improved significantly. I was able to give the patient a sedation holiday and checking her weaning parameters following that showed a rapid shallow breathing index of less than 80. As such , the patient was given a spelled his breathing trial and following that she was extubated to nasal cannula. Postextubation, the patient did well. No magistral distress at this point. No cough or sputum production. No chest pain. She is awake and following commands and answering questions appropriately. No signs of any ongoing respiratory distress at this point. On 07/12/2016 the patient is being seen in follow-up. There is nothing significant improvement in the patient's condition over the past 24-48 hours. The patient was weaned off the mechanical ventilated and the patient was extubated. Today's chest x-ray shows significant improvement in the volume status and there is some residual right-sided pleural effusion still present. Nevertheless, the patient is only on 2 L of oxygen nasal cannula. Denies having any chest pain. No cough or sputum production. No fever or chills. She was having some pain in her left lower extremity nontender the patient has gangrenous toes related to previous embolization from a critically stenotic iliac artery. Vascular surgery is on the case and the ultimate plan is proceed with amputation at a later stage. The patient is also on IV heparin. Adequate pain control is being provided. Vancomycin was discontinued yesterday the patient is still on a combination of Zosyn and Levaquin. On 07/14/2016, the patient is doing very well. Sitting up on a chair. No respiratory difficulties. She is on 40 mg of Lasix every 24 hours. Chest x- ray still showing improvement in the pleural effusions especially the one on the right. Some limited patchy right basilar atelectasis/consolidation is still present. For that reason, This patient on Levaquin. Meanwhile, we'll ask vascular surgery to reevaluate suspicion left lower extremity and consideration needs to be given regarding amputation stenting of the iliac artery during this current hospital stay. Objective - Vital Signs Vital signs: Vital Signs Temp 97.9 F 07/14/16 07:00 Pulse 85 07/14/16 07:00 Resp 16 07/14/16 08:00 BP 122/58 01/15/17 07:00 Pulse Ox 99 07/14/16 07:00 Intake & Output 07/13/16 07/14/16 07/14/16 18:59 06:59 18:59 Intake Total 318.787 801.213 335.134 Balance 318.787 801.213 335.134 Weight 55 kg Intake: IV 120 Piperacillin-Tazobactam 3 50 .375 gm In Dextrose/Water 1 50ml.bag @ 12.5 mls/hr IVPB Q8HR [facility] Rx#: [id number] Sodium Chloride 0.9% 1, 70 000 ml @ 10 mls/hr IV . Q24H [facility] Rx#:[id number] Intake, IV Titration 198.787 401.213 335.134 Amount Heparin Sodium,Porcine/ 98.787 401.213 335.134 D5w Pmx 25,000 unit In Dextrose/Water 1 500ml. bag @ 18 UNITS/KG/HR 21. 71 mls/hr IV .Q23H2M [facility] Rx#:[id number] Potassium Chloride 20 meq 100 Lidocaine 2% Inj 20 mg In Sodium Chloride 0.9% 100 ml @ 55.5 mls/hr IVPB ONCE ONE Rx#:[id number] Oral 400 Other: Voiding Method Bedside Commode Bedside Commode Bedside Commode # Voids 1 ABP, PAP, CO, CI - Last Documented Arterial Blood Pressure 112/59 - Exam She is on oxygen by nasal cannula. Calm and comfortable. Head exam was generally normal. There was no scleral icterus or corneal arcus. Mucous membranes were moist. Neck is supple there is no JVDs no goiter or neck masses. The patient's lips are rather cyanotic at this point. Mucous membranes are extremely dry and the patient has poor oral dental hygiene. Lung sounds are markedly diminished in the right lung base along with some dullness. There is diminished breath sounds bilaterally and there is somewhat pronation of expiratory phase of breathing and scattered external wheezes. Heart sounds are tachycardic, positive S1-S2 and there is no S3 no S4 no murmurs could be appreciated.Abdominal exam revealed normal bowel sounds. The abdomen was soft, non-tender, and without masses, organomegaly, or appreciable enlargement of the abdominal aorta. Extremities are nonswollen. No cyanosis. Dorsalis pedis can be palpated bilaterally. The first second and the fifth toe are gangrenous and it patient has a dry gangrene. There is poor capillary refill. Trace edema. No cyanosis or clubbing. - Labs CBC & Chem 7: 07/14/16 06:30 07/14/16 06:30 Labs: Abnormal Lab Results - Last 24 Hours (Table) 07/13/16 07/13/16 07/14/16 Range/Units 17:13 20:39 06:30 RBC (3.80-5.40) m/uL Hgb (11.4-16.0) gm/dL Hct (34.0-46.0) % APTT (22.0-30.0) sec Potassium 3.2 L (3.5-5.1) mmol/L POC Glucose (mg/dL) 107 H 120 H (75-99) mg/dL Total Protein 5.7 L (6.3-8.2) g/dL Albumin 2.8 L (3.5-5.0) g/dL 07/14/16 07/14/16 07/14/16 Range/Units 06:30 06:30 11:36 RBC 3.67 L (3.80-5.40) m/uL Hgb 10.4 L (11.4-16.0) gm/dL Hct 32.8 L (34.0-46.0) % APTT 87.4 H (22.0-30.0) sec Potassium (3.5-5.1) mmol/L POC Glucose (mg/dL) 109 H (75-99) mg/dL Total Protein (6.3-8.2) g/dL Albumin (3.5-5.0) g/dL 07/14/16 Range/Units 12:49 RBC (3.80-5.40) m/uL Hgb (11.4-16.0) gm/dL Hct (34.0-46.0) % APTT 62.6 H (22.0-30.0) sec Potassium (3.5-5.1) mmol/L POC Glucose (mg/dL) (75-99) mg/dL Total Protein (6.3-8.2) g/dL Albumin (3.5-5.0) g/dL Microbiology - Last 24 Hours (Table) 07/11/16 11:45 Gram Stain - Final Sputum Sputum Culture - Final Laurie albicans Assessment and Plan Plan: Assessment 1 acute hypoxic respiratory failure. The patient is currently on 100% nonrebreather facemask and she was unable to tolerate BiPAP. There is significant otherwise on the computed tomography scan of the chest. There is increased infiltration of the right lung compared to the left in addition to extensive baseline emphysematous change bilaterally and development of a right- sided pleural effusion which is moderate in size and compressive atelectasis of the right lung base. Interestingly, the overall appearance looks like honeycombing on the CAT scan of the chest, yet, this patient does not have pulmonate fibrosis towards her lung disease and the findings on the CAT scan is mimicking pulmonary fibrosis but in fact it represents background emphysema with increased interstitial prominence probably related to CHF or superimposed pneumonia. I'm also not certain of the filling defects is were discussed by radiology. The patient has adequate opacification of the pulmonary arteries and the possibility of pulmonary embolism contributing to her respiratory failure is least of my concern at this point. On 07/10/2016, the patient is intubated on a mechanical ventilator. Chest x- ray still showing CHF/pulmonary edema with a right-sided pleural effusion along with a right lower lobe consolidation. She is diuresing excellent with IV Lasix and she is in a negative fluid balance of 8 L. Her blood gases from today is showing a component of acute respiratory alkalosis. Oxidation is improved and the pO2 is up to 100 with an FiO2 of 60% and a PEEP of 5. Echocardiogram is pending. The patient is also on broad-spectrum antibiotics including a combination of Zosyn and Levaquin and vancomycin. On 07/11/2016, the patient was weaned off the mechanical ventilated and the patient was extubated. Her chest x-ray shows improvement in the volume status. There is still some residual right lower lobe pleural effusion. She is still on IV Lasix. She is receiving antibiotic coverage with a combination of Zosyn and Levaquin and vancomycin. The vancomycin will be dropped at this point. On 07/12/2016, the patient remains extubated. The patient is still being diuresis IV Lasix. Follow-up chest x-ray shows a small right-sided pleural effusion which is still present however overall volume status and the pulmonary edema has pretty much resolved. The patient is only on 2 L oxygen nasal cannula. Doubt any superimposed pneumonia at this point. The patient remains on IV heparin for a questionable pulmonary embolism involving the subsegmental branch and the left upper lobe. On 07/14/2016, the patient remains stable without any major respiratory difficulties. She is receiving Lasix once a day and the chest x-ray continues to show ongoing improvement in the volume status and the pleural effusion. Renal function is also stable. The patient is on IV heparin for questionable pulmonary embolism which I think is not a certain diagnosis an embolization to the distal left foot secondary to severe peripheral vascular disease. 2 peripheral vascular disease with critical stenosis of the left common iliac artery 3 gangrenous toes related to her for an embolization probably from atherosclerosis of the left common iliac artery. The patient was seen by vascular surgery and outpatient vascular intervention was being planned. Unfortunately the patient would likely lose several toes if not part of her foot. The patient is on IV heparin. The patient is experiencing some pain in the left foot which is well controlled at this point. 4 troponin leak 5 COPD 6 recent hospitalization for GI bleed secondary to duodenitis and gastritis 7 nicotine addiction/smoking 8 nephrolithiasis 9 recent treatment for E. coli urine checked infection and the patient was completing a course of ciprofloxacin on outpatient basis 10 debilitated condition with obvious signs of malnourishment and poor health maintenance Plan Continued IV heparin. Change the Lasix to 40 mg every 24 hours once a day. Continue Levaquin. Ask vascular surgery to relieve air this patient and ask for vascular intervention including stenting of the common iliac on the left and amputation of the gangrenous toes in the left foot. Would prefer to do these procedures the patient is still in the hospital.
[2016-07-14 16:58] LABS: Glucose,Whole Blood 116 mg/dL (75-99)
[2016-07-14 20:12] LABS: Glucose,Whole Blood 102 mg/dL (75-99)
[2016-07-14] MEDS: CYCLOBENZAPRINE 10 MG TAB PO SCH (21:16)
[2016-07-14] MEDS: HEPARIN SODIUM,PORCINE/D5W PMX 25,000 UNIT in DEXTROSE/WATER 1 500ML.BAG IV SCH (21:20)
[2016-07-15] MEDS: HYDROcodone/APAP 10-325MG 1 EACH TAB PO PRN ×4 (00:07→20:02)
[2016-07-15 06:06] LABS: Basophils # (A) 0.1 k/uL (0-0.2); Basophils % (A) 1 %; CH 29.1; CHCM 32.3; Eosinophils # (A) 0.2 k/uL (0-0.7); Eosinophils % (A) 3 %; HCT 32.7 % (34.0-46.0); HDW 3.07; HGB 10.4 gm/dL (11.4-16.0); Hypochromasia Slight; Luc # (Auto) 0.24; Luc % (Auto) 4; Lymphocytes # (A) 1.8 k/uL (1.0-4.8); Lymphocytes % (A) 31 %; MCH 28.9 pg (25.0-35.0); MCHC 31.8 g/dL (31.0-37.0); MCV 90.8 fL (80.0-100.0); Mean Platelet Volume 8.2; Monocytes # (A) 0.6 k/uL (0-1.0); Monocytes % (A) 10 %; Neutrophils # (A) 3.1 k/uL (1.3-7.7); Neutrophils % (A) 52 %; RDW 15.3 % (11.5-15.5); WBC (Perox) 5.99
[2016-07-15 06:39] LABS: ALT 49 U/L (9-52); AST 35 U/L (14-36); Alkaline Phosphatase 74 U/L (38-126); Anion Gap 8 mmol/L; Blood Urea Nitrogen 21 mg/dL (7-17); Calcium 8.9 mg/dL (8.4-10.2); Carbon Dioxide 29 mmol/L (22-30); Chloride 104 mmol/L (98-107); Glucose 88 mg/dL (74-99); Non-African American GFR(MDRD) >60 (>60 ml/min/1.73 sqM); Potassium 3.9 mmol/L (3.5-5.1); Sodium 141 mmol/L (137-145); Total Bilirubin 0.4 mg/dL (0.2-1.3); Total Protein 5.5 g/dL (6.3-8.2)
[2016-07-15] MEDS: LEVALBUTEROL NEB (CONC) 1.25 MG/0.5 ML AMP INHALATION SCH ×4 (07:55→20:38)
[2016-07-15] MEDS: IPRATROPIUM 0.5 MG/2.5 ML NEBU INHALATION SCH ×4 (07:55→20:38)
[2016-07-15 08:04] LABS: Glucose,Whole Blood 104 mg/dL (75-99)
[2016-07-15] MEDS: INSULIN LISPRO (humaLOG) 300 UNIT/3 ML VIAL SQ SCH ×4 (08:29→23:43)
[2016-07-15] MEDS: FUROSEMIDE 10 MG/ML 4 ML VIAL IV SCH (08:29)
[2016-07-15] MEDS: PANTOPRAZOLE 40 MG/10 ML VIAL IV SCH (08:30)
[2016-07-15] MEDS ORDERED: FUROSEMIDE 10 MG/ML 4 ML VIAL IV SCH (09:00)
[2016-07-15 09:18] LABS: INR 1.2 (<1.1); Partial Thromboplastin Time 69.9 sec (22.0-30.0); Prothrombin Time 11.9 sec (9.0-12.0)
[2016-07-15 11:41] LABS: Glucose,Whole Blood 107 mg/dL (75-99)
[2016-07-15] MEDS: ALPRAZolam 0.5 MG TAB PO PRN ×2 (15:12→21:59)
[2016-07-15] MEDS: DILTIAZEM ORAL 60 MG TAB PO SCH ×3 (15:32→23:43)
--- NOTE | 2016-07-15 15:39 | P.PN ---
Subjective Principal diagnosis: Acute hypoxic respiratory failure This is a 56-year-old female patient who presented emergency department after 48 hours of being discharged from the hospital for worsening shortness of breath and respiratory failure. The patient was in significant respiratory distress at time of arrival tachypneic and tachycardic. She was briefly tried on BiPAP which she failed and she was unable to tolerate and based on that she was placed in the 100% nonrebreather facemask. A CT angios the chest was done which was officially reported as having questionable filling defect in the secondary and tertiary branches of the left upper lobe pulmonary artery however , the striking abnormalities on the CT angios the chest is extensive emphysema and increased interstitial prominence bilaterally more so on the right and development of compressive atelectasis moderate-sized right-sided pleural effusion and this is in comparison to the previous CAT scan imaging there was an approximately a week ago. All these findings are rather new and that is no evidence of any pulmonary fibrosis and the patient has some background advanced COPD. The patient denies having any chest pain. She has a congested cough that she is unable to bring up much sputum. No fever. No chills. No aspiration. No pleurisy. Denies having any recurrent bouts of pneumonias. Denies being on home oxygen Upon review of her medical records, the patient was in the hospital approximately a week ago for various complications. She was having issues with GI bleeding and as part of further investigation the patient had an EGD that showed gastritis and duodenitis she was also found to have ischemic toes in her left foot. Based on that, a vascular consultation was obtained and the patient was diagnosed having gangrenous toes probably an embolic phenomenon and it was thought that the embolism is from the extensive peripheral vascular disease that the patient had specially involving the left common iliac artery. The patient was seen by vascular surgery and there were some plans to consider stenting of the left iliac with subsequent fem-fem bypass surgery and this was supposed to be done outpatient basis. Meanwhile, several toes in the left lower extremity remains quite gangrenous at this point. Note that the patient had a CTA done on 07/01/2016 and it showed atherosclerosis involving the abdominal aorta without aneurysm, atherosclerosis involving the right common iliac artery. Severe narrowing within the left common iliac artery specially at a 1 cm segment involving the vessel. The CT also showed a 1.6 cm calculus in the left renal pelvis with obstructive uropathy due to asymmetric enhancement of the left kidney. The bile duct was slightly dilated at 9 mm and the patient had a mildly enlarged (aortic valve measuring 1.2 cm in size. COPD and diffuse emphysema was noted in lung windows without evidence of any pulmonary fibrosis. The echocardiogram was also completed and it showed a relatively preserved LV function with an ejection fraction of around 45-50%. There was moderate tricuspid regurgitation and moderate pulmonary hypertension with an estimated PA pressure of around 54 mmHg. No other significant valvular abnormalities noted. On 07/14/2016, the patient is doing very well. Sitting up on a chair. No respiratory difficulties. She is on 40 mg of Lasix every 24 hours. Chest x- ray still showing improvement in the pleural effusions especially the one on the right. Some limited patchy right basilar atelectasis/consolidation is still present. For that reason, This patient on Levaquin. Meanwhile, we'll ask vascular surgery to reevaluate suspicion left lower extremity and consideration needs to be given regarding amputation stenting of the iliac artery during this current hospital stay. On 07/15/2016, patient is urgent to be discharged home. Clinically from the pulmonary perspective she is doing well, and she is definitely improved. However the concern remains about her ischemic left foot, and the patient may eventually require amputation and stent placement in the left iliac artery. This is yet to be decided upon by vascular surgery on the case. She is cleared from my perspective for surgical intervention or for discharge if felt that she could be discharged home by vascular surgery. Objective - Vital Signs Vital signs: Vital Signs Temp 98.4 F 07/15/16 07:00 Pulse 84 07/15/16 08:09 Resp 16 07/15/16 07:00 BP 126/59 07/15/16 07:00 Pulse Ox 96 07/15/16 07:00 Intake & Output 07/14/16 07/15/16 07/15/16 18:59 06:59 18:59 Intake Total 335.134 684.866 Balance 335.134 684.866 Weight 50 kg Intake: IV 120 Sodium Chloride 0.9% 1, 120 000 ml @ 10 mls/hr IV . Q24H [facility] Rx#:[id number] Intake, IV Titration 335.134 164.866 Amount Heparin Sodium,Porcine/ 335.134 164.866 D5w Pmx 25,000 unit In Dextrose/Water 1 500ml. bag @ 18 UNITS/KG/HR 21. 71 mls/hr IV .Q23H2M [facility] Rx#:[id number] Oral 400 Other: Voiding Method Bedside Commode Bedside Commode Bedside Commode # Voids 2 2 ABP, PAP, CO, CI - Last Documented Arterial Blood Pressure 112/59 - Exam She is on oxygen by nasal cannula. Calm and comfortable. Head exam was generally normal. There was no scleral icterus or corneal arcus. Mucous membranes were moist. Neck is supple there is no JVDs no goiter or neck masses. The patient's lips are rather cyanotic at this point. Mucous membranes are extremely dry and the patient has poor oral dental hygiene. Lung sounds are markedly diminished in the right lung base along with some dullness. There is diminished breath sounds bilaterally and there is somewhat pronation of expiratory phase of breathing and scattered external wheezes. Heart sounds are tachycardic, positive S1-S2 and there is no S3 no S4 no murmurs could be appreciated.Abdominal exam revealed normal bowel sounds. The abdomen was soft, non-tender, and without masses, organomegaly, or appreciable enlargement of the abdominal aorta. Extremities are nonswollen. No cyanosis. Dorsalis pedis can be palpated bilaterally. The first second and the fifth toe are gangrenous and it patient has a dry gangrene. There is poor capillary refill. Trace edema. No cyanosis or clubbing. - Labs CBC & Chem 7: 07/15/16 05:30 07/15/16 05:30 Labs: Abnormal Lab Results - Last 24 Hours (Table) 07/14/16 07/14/16 07/15/16 Range/Units 16:56 20:10 05:30 RBC (3.80-5.40) m/uL Hgb (11.4-16.0) gm/dL Hct (34.0-46.0) % APTT (22.0-30.0) sec BUN 21 H (7-17) mg/dL POC Glucose (mg/dL) 116 H 102 H (75-99) mg/dL Total Protein 5.5 L (6.3-8.2) g/dL Albumin 2.9 L (3.5-5.0) g/dL 07/15/16 07/15/16 07/15/16 Range/Units 05:30 07:55 08:45 RBC 3.60 L (3.80-5.40) m/uL Hgb 10.4 L (11.4-16.0) gm/dL Hct 32.7 L (34.0-46.0) % APTT 69.9 H (22.0-30.0) sec BUN (7-17) mg/dL POC Glucose (mg/dL) 104 H (75-99) mg/dL Total Protein (6.3-8.2) g/dL Albumin (3.5-5.0) g/dL 07/15/16 Range/Units 11:21 RBC (3.80-5.40) m/uL Hgb (11.4-16.0) gm/dL Hct (34.0-46.0) % APTT (22.0-30.0) sec BUN (7-17) mg/dL POC Glucose (mg/dL) 107 H (75-99) mg/dL Total Protein (6.3-8.2) g/dL Albumin (3.5-5.0) g/dL Assessment and Plan Plan: 1 acute hypoxic respiratory failure. The patient is currently on 100% nonrebreather facemask and she was unable to tolerate BiPAP. There is significant otherwise on the computed tomography scan of the chest. There is increased infiltration of the right lung compared to the left in addition to extensive baseline emphysematous change bilaterally and development of a right- sided pleural effusion which is moderate in size and compressive atelectasis of the right lung base. Interestingly, the overall appearance looks like honeycombing on the CAT scan of the chest, yet, this patient does not have pulmonate fibrosis towards her lung disease and the findings on the CAT scan is mimicking pulmonary fibrosis but in fact it represents background emphysema with increased interstitial prominence probably related to CHF or superimposed pneumonia. I'm also not certain of the filling defects is were discussed by radiology. The patient has adequate opacification of the pulmonary arteries and the possibility of pulmonary embolism contributing to her respiratory failure is least of my concern at this point. 2 peripheral vascular disease with critical stenosis of the left common iliac artery 3 gangrenous toes related to her for an embolization probably from atherosclerosis of the left common iliac artery. The patient was seen by vascular surgery and outpatient vascular intervention was being planned. Unfortunately the patient would likely lose several toes if not part of her foot. The patient is on IV heparin. The patient is experiencing some pain in the left foot which is well controlled at this point. 4 troponin leak 5 COPD 6 recent hospitalization for GI bleed secondary to duodenitis and gastritis 7 nicotine addiction/smoking 8 nephrolithiasis 9 recent treatment for E. coli urine checked infection and the patient was completing a course of ciprofloxacin on outpatient basis 10 debilitated condition with obvious signs of malnourishment and poor health maintenance Recommendation: Continue present supportive care measures, continue diuretics, continue antibiotics/Levaquin, vascular surgery to evaluate for intervention including stenting of the common iliac on the left side, and possibly amputation of the toes in the left foot. We'll continue to follow. Again the patient is urgent to be discharged home, Time with Patient: Less than 30
[2016-07-15] MEDS ORDERED: LEVOFLOXACIN 750MG-D5W PMX 750 MG in DEXTROSE/WATER 1 150ML.BAG IVPB SCH (16:00)
--- NOTE | 2016-07-15 16:06 | P.PN ---
Progress Note - Text events noted stable from pulmonary perspective AF VSS left foot; toes continue to demarcate; patient refusing full exam secondary to pain impression/plan 1. high grade left iliac artery stenosis with moderate left lower extremity arterial occlusive disease and embolization to patient's left foot 2. respiratory failure now resolved; mixed etiology patient is scheduled in the catheterization lab on 07/17/2016 at 1030 for open placement of left common iliac artery covered stent and related procedures will get echocardiogram in interim to evalutate ventricular function continue IV heparin drip discussed with OR staff/optical laboratory manager staff/Dr. Dereck Harmon
--- NOTE | 2016-07-15 16:55 | P.PN ---
Subjective 56-year-old female that was admitted to the hospital after being treated for a GI bleed/UTI/respiratory issues as well. Patient was significantly hypoxic. Initial computed tomography scan of the chest revealed a left upper lobe territory pulmonary embolism. Patient was also noted to have significant fluid overload on the chest CT. Patient failed BiPAP therapy and hence was intubated overnight. This a.m. patient is currently on the ventilator on a minimal dose of propofol for sedation. Patient is nonresponsive currently on the ventilator at resprate of 12 tidal I will 450 FiO2 of 50% and PEEP of 5. No new overnight events are reported. 07/11/2016 Patient was activated 50 minutes prior to my examination. Patient was on supplement oxygen at 3 L was doing well. Patient is complaining of severe pain in her left lower extremity. Denies having any fevers, chills. No other overnight events reported. 07/12/2016 Patient states to be slightly improved however complains of pain in her left toes. Denies any fevers, chills, nausea, vomiting. She does have a cough that is productive of yellowish sputum. 07/13/2016 Patient is currently off oxygen states to have no new complains. States that her pain is barely tolerable on IV pain medications. Denies having fevers, chills, nausea, vomiting, urinary urgency or frequency at this time. 07/14/2016 Patient denies having any fevers, chills, nausea, vomiting, diarrhea. Currently has not had a bowel movement in over 4 days. 07/15/16 Pt has tachycardia today No symptoms are reported tearful in regards to pain. States she doesnot understand why the surgery was deferred. Explained to the pt , it was due to her respiratory status. Objective - Vital Signs Vital signs: Vital Signs Temp 98.4 F 07/15/16 07:00 Pulse 84 07/15/16 08:09 Resp 16 07/15/16 07:00 BP 126/59 07/15/16 07:00 Pulse Ox 96 07/15/16 07:00 Intake & Output 07/14/16 07/15/16 07/15/16 18:59 06:59 18:59 Intake Total 335.134 684.866 80 Balance 335.134 684.866 80 Weight 50 kg Intake: IV 120 80 Sodium Chloride 0.9% 1, 120 80 000 ml @ 10 mls/hr IV . Q24H [facility] Rx#:[id number] Intake, IV Titration 335.134 164.866 Amount Heparin Sodium,Porcine/ 335.134 164.866 D5w Pmx 25,000 unit In Dextrose/Water 1 500ml. bag @ 18 UNITS/KG/HR 21. 71 mls/hr IV .Q23H2M [facility] Rx#:[id number] Oral 400 Other: Voiding Method Bedside Commode Bedside Commode Bedside Commode # Voids 2 2 3 ABP, PAP, CO, CI - Last Documented Arterial Blood Pressure 112/59 - Exam Gen. appearance awake No distress on room air. Lungs good air entry clear to auscultation no crackles appreciated today Heart regular rate and rhythm no murmurs appreciated. 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 Neurologically moves all 4 extremities cranial nerves 2-12 grossly intact. - Labs CBC & Chem 7: 07/15/16 05:30 07/15/16 05:30 Labs: Abnormal Lab Results - Last 24 Hours (Table) 07/14/16 07/14/16 07/15/16 Range/Units 16:56 20:10 05:30 RBC (3.80-5.40) m/uL Hgb (11.4-16.0) gm/dL Hct (34.0-46.0) % APTT (22.0-30.0) sec BUN 21 H (7-17) mg/dL POC Glucose (mg/dL) 116 H 102 H (75-99) mg/dL Total Protein 5.5 L (6.3-8.2) g/dL Albumin 2.9 L (3.5-5.0) g/dL 07/15/16 07/15/16 07/15/16 Range/Units 05:30 07:55 08:45 RBC 3.60 L (3.80-5.40) m/uL Hgb 10.4 L (11.4-16.0) gm/dL Hct 32.7 L (34.0-46.0) % APTT 69.9 H (22.0-30.0) sec BUN (7-17) mg/dL POC Glucose (mg/dL) 104 H (75-99) mg/dL Total Protein (6.3-8.2) g/dL Albumin (3.5-5.0) g/dL 07/15/16 Range/Units 11:21 RBC (3.80-5.40) m/uL Hgb (11.4-16.0) gm/dL Hct (34.0-46.0) % APTT (22.0-30.0) sec BUN (7-17) mg/dL POC Glucose (mg/dL) 107 H (75-99) mg/dL Total Protein (6.3-8.2) g/dL Albumin (3.5-5.0) g/dL Assessment and Plan Plan: #1 acute hypoxic respiratory failure likely secondary to an acute exacerbation of congestive heart failure that is diastolic in nature. Underlying right lower lobe bacterial pneumonia cannot be excluded it would likely be gram- negative in nature and healthcare acquired in nature. #2 peripheral vascular disease with critical stenosis of the left common iliac artery #3 COPD #4 recent GI bleed #5 nephrolithiasis #6 left upper lobe PE that is questionable #7 mild to moderate protein calorie malnutrition #8 tachyphylaxis-induced congestive heart failure. #9 hypokalemia 10. Sinus tachycardia Plan Previous echo reviewed. systolic function is stable from the prior admission start cardizem 60mg qid, if refractory, start cardizem drip. Cleared for surgery. Respiratory status is stable. Cardiac status: due to the urgent nature of the surgery, pt can undergo surgery , Performance status < 4mets due to pain from toe ischemia. previous echo reviewed.
[2016-07-15 17:10] LABS: Glucose,Whole Blood 97 mg/dL (75-99)
[2016-07-15] MEDS: HEPARIN SODIUM,PORCINE/D5W PMX 25,000 UNIT in DEXTROSE/WATER 1 500ML.BAG IV SCH (19:58)
[2016-07-15 20:36] LABS: Glucose,Whole Blood 109 mg/dL (75-99)
[2016-07-15] MEDS: SODIUM CHLORIDE 0.9% 1,000 ML IV SCH (23:45)
[2016-07-15] MEDS: CYCLOBENZAPRINE 10 MG TAB PO SCH (23:45)
[2016-07-16 06:01] LABS: Basophils # (A) 0.1 k/uL (0-0.2); Basophils % (A) 1 %; CH 29.2; CHCM 32.3; Eosinophils # (A) 0.2 k/uL (0-0.7); Eosinophils % (A) 3 %; HCT 33.5 % (34.0-46.0); HDW 3.06; HGB 10.7 gm/dL (11.4-16.0); Hypochromasia Slight; Luc # (Auto) 0.25; Luc % (Auto) 4; Lymphocytes # (A) 1.7 k/uL (1.0-4.8); Lymphocytes % (A) 29 %; MCHC 31.9 g/dL (31.0-37.0); MCV 90.8 fL (80.0-100.0); Mean Platelet Volume 7.3; Monocytes # (A) 0.6 k/uL (0-1.0); Monocytes % (A) 9 %; Neutrophils # (A) 3.4 k/uL (1.3-7.7); Neutrophils % (A) 55 %; RBC 3.69 m/uL (3.80-5.40); RDW 15.2 % (11.5-15.5); WBC 6.1 k/uL (3.8-10.6); WBC (Perox) 6.51
[2016-07-16 06:40] LABS: ALT 51 U/L (9-52); AST 47 U/L (14-36); Alkaline Phosphatase 70 U/L (38-126); Anion Gap 10 mmol/L; Blood Urea Nitrogen 21 mg/dL (7-17); Calcium 8.9 mg/dL (8.4-10.2); Carbon Dioxide 29 mmol/L (22-30); Chloride 101 mmol/L (98-107); Glucose 92 mg/dL (74-99); Magnesium 2.1 mg/dL (1.6-2.3); Non-African American GFR(MDRD) >60 (>60 ml/min/1.73 sqM); Potassium 3.3 mmol/L (3.5-5.1); Sodium 140 mmol/L (137-145); Total Bilirubin 0.5 mg/dL (0.2-1.3); Total Protein 5.7 g/dL (6.3-8.2)
[2016-07-16] MEDS: LEVALBUTEROL NEB (CONC) 1.25 MG/0.5 ML AMP INHALATION SCH ×4 (07:09→19:00)
[2016-07-16] MEDS: IPRATROPIUM 0.5 MG/2.5 ML NEBU INHALATION SCH ×4 (07:09→19:00)
[2016-07-16 07:40] LABS: Glucose,Whole Blood 99 mg/dL (75-99)
[2016-07-16] MEDS ORDERED: POTASSIUM CHLORIDE 20 MEQ in WATER FOR INJECTION 1 100ML.BAG IVPB ONE (08:29)
[2016-07-16] MEDS: INSULIN LISPRO (humaLOG) 300 UNIT/3 ML VIAL SQ SCH ×4 (08:33→20:53)
[2016-07-16] MEDS: PANTOPRAZOLE 40 MG/10 ML VIAL IV SCH (08:33)
[2016-07-16] MEDS: DILTIAZEM ORAL 60 MG TAB PO SCH ×4 (08:33→22:51)
[2016-07-16] MEDS: FUROSEMIDE 10 MG/ML 4 ML VIAL IV SCH (08:34)
[2016-07-16] MEDS: HYDROcodone/APAP 10-325MG 1 EACH TAB PO PRN ×3 (09:29→20:54)
--- NOTE | 2016-07-16 11:59 | P.PN ---
Subjective This is a 56-year-old female patient who presented emergency department after 48 hours of being discharged from the hospital for worsening shortness of breath and respiratory failure. The patient was in significant respiratory distress at time of arrival tachypneic and tachycardic. She was briefly tried on BiPAP which she failed and she was unable to tolerate and based on that she was placed in the 100% nonrebreather facemask. A CT angios the chest was done which was officially reported as having questionable filling defect in the secondary and tertiary branches of the left upper lobe pulmonary artery however , the striking abnormalities on the CT angios the chest is extensive emphysema and increased interstitial prominence bilaterally more so on the right and development of compressive atelectasis moderate-sized right-sided pleural effusion and this is in comparison to the previous CAT scan imaging there was an approximately a week ago. All these findings are rather new and that is no evidence of any pulmonary fibrosis and the patient has some background advanced COPD. she had developed worsening pulmonary status requiring intubation mechanical ventilation. She was initially evaluated in the intensive care unit. She is seen again today in follow-up on 07/16/2016 on the regular medical floor. She is awake and alert in no acute distress. She is improved significantly from the pulmonary standpoint. She is maintaining good O2 saturations in the mid 90s on room air. She is currently afebrile. She's been up ambulating with assistance. Her chest x-ray does show improved aeration. There is still trace bilateral pleural effusions. The plan is for open placement of the left common iliac artery stent tomorrow by Dr. Regan. She remains on a heparin drip. Objective - Vital Signs Vital signs: Vital Signs Temp 97.6 F 07/16/16 07:00 Pulse 72 07/16/16 07:00 Resp 16 07/16/16 07:00 BP 105/56 07/16/16 07:00 Pulse Ox 95 07/16/16 07:11 Intake & Output 07/15/16 07/16/16 07/16/16 18:59 06:59 18:59 Intake Total 80 1030 314.386 Balance 80 1030 314.386 Weight 50 kg Intake: IV 80 140 Sodium Chloride 0.9% 1, 80 140 000 ml @ 10 mls/hr IV . Q24H [facility] Rx#:[id number] Intake, IV Titration 500 314.386 Amount Heparin Sodium,Porcine/ 500 314.386 D5w Pmx 25,000 unit In Dextrose/Water 1 500ml. bag @ 18 UNITS/KG/HR 21. 71 mls/hr IV .Q23H2M [facility] Rx#:[id number] Oral 390 Other: Voiding Method Bedside Commode Bedside Commode Bedside Commode # Voids 3 2 ABP, PAP, CO, CI - Last Documented Arterial Blood Pressure 112/59 - Exam GENERAL EXAM: Alert, comfortable in no apparent distress. HEAD: Normocephalic. EYES: Normal reaction of pupils, equal size. NOSE: Clear with pink turbinates. THROAT: No erythema or exudates. NECK: No masses, no JVD. CHEST: No chest wall deformity. LUNGS: Equal air entry with faint crackles in the posterior bases. Diminished. CVS: S1 and S2 normal with no audible murmurs, regular rhythm. ABDOMEN: No hepatosplenomegaly, normal bowel sounds, no guarding or rigidity. Extremities: There is no significant peripheral edema. She does have cyanotic toes on the left foot. Peripheral pulses are intact. - Labs CBC & Chem 7: 07/16/16 05:41 07/16/16 05:41 Labs: Abnormal Lab Results - Last 24 Hours (Table) 07/15/16 07/16/16 07/16/16 Range/Units 20:32 05:41 05:41 RBC 3.69 L (3.80-5.40) m/uL Hgb 10.7 L (11.4-16.0) gm/dL Hct 33.5 L (34.0-46.0) % APTT (22.0-30.0) sec Potassium 3.3 L (3.5-5.1) mmol/L BUN 21 H (7-17) mg/dL POC Glucose (mg/dL) 109 H (75-99) mg/dL AST 47 H (14-36) U/L Total Protein 5.7 L (6.3-8.2) g/dL Albumin 3.1 L (3.5-5.0) g/dL 07/16/16 Range/Units 09:00 RBC (3.80-5.40) m/uL Hgb (11.4-16.0) gm/dL Hct (34.0-46.0) % APTT 88.2 H (22.0-30.0) sec Potassium (3.5-5.1) mmol/L BUN (7-17) mg/dL POC Glucose (mg/dL) (75-99) mg/dL AST (14-36) U/L Total Protein (6.3-8.2) g/dL Albumin (3.5-5.0) g/dL Assessment and Plan Plan: Impression: #1 Acute hypoxic respiratory failure secondary to extensive baseline emphysema medical changes and right pleural effusion with compressive atelectasis of the right lung base. Improved both clinically and radiographically. 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 There is impaired left ventricular systolic function with estimated ejection fraction between 45 and 50%. #3 Acute exacerbation of severe chronic obstructive pulmonary disease. #4 Moderate pulmonary hypertension, RVSP 54 mmHg. #5 Peripheral vascular disease with critical stenosis of the left common iliac artery. #6 Gangrenous toes secondary to embolization probably from atherosclerosis of the left common iliac artery. Remains on IV heparin. #7 Recent hospitalization for GI bleed secondary to duodenitis and gastritis. #8 Chronic and ongoing nicotine addiction. #9 Nephrolithiasis. #10 Recent treatment for E. coli urinary tract infection completing a course of Cipro floxacillin in the outpatient setting. #11 Poor overall functional performance secondary to the above-mentioned multiple comorbidities. Plan: The patient was seen and evaluated by Dr. Madsen. She is stable from the pulmonary standpoint. The plan is for surgical intervention with open placement of the left common iliac artery stent to improve circulation to the left lower extremity. We'll continue with her current medications. She remains on a heparin drip for now. We'll continue to follow and make further recommendations based on her clinical status.
[2016-07-16 12:34] LABS: Glucose,Whole Blood 101 mg/dL (75-99)
[2016-07-16] MEDS ORDERED: LEVOFLOXACIN 750 MG TAB PO SCH (16:00)
--- NOTE | 2016-07-16 16:45 | P.PN ---
Progress Note - Text no adverse events overnight still with considerable pain in left toes but controlled with meds AF VSS left leg; palpable femoral and dorsalis pedis pulses; gangrenous changes on tip of second toe; lateral aspect of great toe, between 4th and 5th toes, no infection, no abscess Risks and benefits of left iliac artery angiplasty and stenting discussed with patient including cardiac and pulmonary complications, infection, bleeding, wound healing complications, embolization to lower extremities, renal and visceral embolization, stent thrombosis/stenosis, need for right to left femoral to femoral crossover bypass as a bailout procedure. Patient understands rationale for procedure, understands risks and benefits and is willing to have procedure performed. Scheduled for 07/17/2016. Orders written Will hold furosemide in am Hold heparin drip at 0600 and recheck coags at 1030 in anticipation of regional anesthetic Recheck labs in am;
[2016-07-16 17:52] LABS: Glucose,Whole Blood 137 mg/dL (75-99)
--- NOTE | 2016-07-16 18:45 | P.PN ---
Subjective 56-year-old female that was admitted to the hospital after being treated for a GI bleed/UTI/respiratory issues as well. Patient was significantly hypoxic. Initial computed tomography scan of the chest revealed a left upper lobe territory pulmonary embolism. Patient was also noted to have significant fluid overload on the chest CT. Patient failed BiPAP therapy and hence was intubated overnight. This a.m. patient is currently on the ventilator on a minimal dose of propofol for sedation. Patient is nonresponsive currently on the ventilator at resprate of 12 tidal I will 450 FiO2 of 50% and PEEP of 5. No new overnight events are reported. 07/11/2016 Patient was activated 50 minutes prior to my examination. Patient was on supplement oxygen at 3 L was doing well. Patient is complaining of severe pain in her left lower extremity. Denies having any fevers, chills. No other overnight events reported. 07/12/2016 Patient states to be slightly improved however complains of pain in her left toes. Denies any fevers, chills, nausea, vomiting. She does have a cough that is productive of yellowish sputum. 07/13/2016 Patient is currently off oxygen states to have no new complains. States that her pain is barely tolerable on IV pain medications. Denies having fevers, chills, nausea, vomiting, urinary urgency or frequency at this time. 07/14/2016 Patient denies having any fevers, chills, nausea, vomiting, diarrhea. Currently has not had a bowel movement in over 4 days. 07/15/16 Pt has tachycardia today No symptoms are reported tearful in regards to pain. States she doesnot understand why the surgery was deferred. Explained to the pt , it was due to her respiratory status. 07/16/16 No new overnight events. Objective - Vital Signs Vital signs: Vital Signs Temp 98 F 07/16/16 15:00 Pulse 77 07/16/16 15:00 Resp 16 07/16/16 15:00 BP 116/55 07/16/16 15:00 Pulse Ox 94 L 07/16/16 15:00 Intake & Output 07/15/16 07/16/16 07/16/16 18:59 06:59 18:59 Intake Total 80 1030 874.386 Balance 80 1030 874.386 Weight 50 kg 50 kg Intake: IV 80 140 80 Sodium Chloride 0.9% 1, 80 140 80 000 ml @ 10 mls/hr IV . Q24H JANET Rx#:[id number] Intake, IV Titration 500 314.386 Amount Heparin Sodium,Porcine/ 500 314.386 D5w Pmx 25,000 unit In Dextrose/Water 1 500ml. bag @ 18 UNITS/KG/HR 21. 71 mls/hr IV .Q23H2M JANET Rx#:[id number] Oral 390 480 Other: Voiding Method Bedside Commode Bedside Commode Bedside Commode # Voids 3 2 3 ABP, PAP, CO, CI - Last Documented Arterial Blood Pressure 112/59 - Exam Gen. appearance awake No distress on room air. Lungs good air entry clear to auscultation no crackles appreciated today Heart regular rate and rhythm no murmurs appreciated. 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 Neurologically moves all 4 extremities cranial nerves 2-12 grossly intact. - Labs CBC & Chem 7: 07/16/16 05:41 07/16/16 05:41 Labs: Abnormal Lab Results - Last 24 Hours (Table) 07/15/16 07/16/16 07/16/16 Range/Units 20:32 05:41 05:41 RBC 3.69 L (3.80-5.40) m/uL Hgb 10.7 L (11.4-16.0) gm/dL Hct 33.5 L (34.0-46.0) % APTT (22.0-30.0) sec Potassium 3.3 L (3.5-5.1) mmol/L BUN 21 H (7-17) mg/dL POC Glucose (mg/dL) 109 H (75-99) mg/dL AST 47 H (14-36) U/L Total Protein 5.7 L (6.3-8.2) g/dL Albumin 3.1 L (3.5-5.0) g/dL 07/16/16 07/16/16 07/16/16 Range/Units 09:00 12:28 16:15 RBC (3.80-5.40) m/uL Hgb (11.4-16.0) gm/dL Hct (34.0-46.0) % APTT 88.2 H 61.6 H (22.0-30.0) sec Potassium (3.5-5.1) mmol/L BUN (7-17) mg/dL POC Glucose (mg/dL) 101 H (75-99) mg/dL AST (14-36) U/L Total Protein (6.3-8.2) g/dL Albumin (3.5-5.0) g/dL 07/16/16 Range/Units 17:10 RBC (3.80-5.40) m/uL Hgb (11.4-16.0) gm/dL Hct (34.0-46.0) % APTT (22.0-30.0) sec Potassium (3.5-5.1) mmol/L BUN (7-17) mg/dL POC Glucose (mg/dL) 137 H (75-99) mg/dL AST (14-36) U/L Total Protein (6.3-8.2) g/dL Albumin (3.5-5.0) g/dL Assessment and Plan Plan: #1 acute hypoxic respiratory failure likely secondary to an acute exacerbation of congestive heart failure that is diastolic in nature. Underlying right lower lobe bacterial pneumonia cannot be excluded it would likely be gram- negative in nature and healthcare acquired in nature. #2 peripheral vascular disease with critical stenosis of the left common iliac artery #3 COPD #4 recent GI bleed #5 nephrolithiasis #6 left upper lobe PE that is questionable #7 mild to moderate protein calorie malnutrition #8 tachyphylaxis-induced congestive heart failure. #9 hypokalemia 10. Sinus tachycardia Plan Heart rate is stable Surgery jackelyn Cleared for surgery. Respiratory status is stable. Cardiac status: due to the urgent nature of the surgery, pt can undergo surgery , Performance status < 4mets due to pain from toe ischemia. previous echo reviewed.
[2016-07-16] MEDS: HEPARIN SODIUM,PORCINE/D5W PMX 25,000 UNIT in DEXTROSE/WATER 1 500ML.BAG IV SCH (18:50)
[2016-07-16] MEDS: ALPRAZolam 0.5 MG TAB PO PRN (18:50)
[2016-07-16 20:21] LABS: Glucose,Whole Blood 117 mg/dL (75-99)
[2016-07-16] MEDS: CYCLOBENZAPRINE 10 MG TAB PO SCH (20:54)
[2016-07-16] MEDS: SODIUM CHLORIDE 0.9% 1,000 ML IV SCH (22:50)
[2016-07-16] MEDS: POTASSIUM CHLORIDE ER 20 MEQ TAB.ER PO SCH (22:51)
[2016-07-17] MEDS: POTASSIUM CHLORIDE ER 20 MEQ TAB.ER PO SCH (00:13)
[2016-07-17] MEDS: LACTATED RINGERS 1,000 ML IV SCH (05:45)
[2016-07-17] MEDS: DILTIAZEM ORAL 60 MG TAB PO SCH ×4 (07:09→21:27)
[2016-07-17] MEDS: HYDROcodone/APAP 10-325MG 1 EACH TAB PO PRN ×2 (07:09→20:28)
[2016-07-17 07:12] LABS: Anion Gap 9 mmol/L; Blood Urea Nitrogen 21 mg/dL (7-17); Carbon Dioxide 28 mmol/L (22-30); Chloride 103 mmol/L (98-107); Glucose 92 mg/dL (74-99); Non-African American GFR(MDRD) >60 (>60 ml/min/1.73 sqM); Potassium 4.3 mmol/L (3.5-5.1); Sodium 140 mmol/L (137-145)
[2016-07-17 07:14] LABS: CH 29.3; CHCM 32.6; HCT 33.4 % (34.0-46.0); HDW 3.03; HGB 10.8 gm/dL (11.4-16.0); Hypochromasia Slight; MCH 29.2 pg (25.0-35.0); MCHC 32.3 g/dL (31.0-37.0); MCV 90.4 fL (80.0-100.0); Mean Platelet Volume 8.5; RBC 3.69 m/uL (3.80-5.40); RDW 15.2 % (11.5-15.5); WBC 6.2 k/uL (3.8-10.6)
[2016-07-17] MEDS: INSULIN LISPRO (humaLOG) 300 UNIT/3 ML VIAL SQ SCH ×4 (07:15→21:27)
[2016-07-17] MEDS: PANTOPRAZOLE 40 MG TABLET PO SCH (07:15)
[2016-07-17] MEDS: IPRATROPIUM 0.5 MG/2.5 ML NEBU INHALATION SCH ×5 (07:36→20:06)
[2016-07-17] MEDS: LEVALBUTEROL NEB (CONC) 1.25 MG/0.5 ML AMP INHALATION SCH ×5 (07:36→20:06)
[2016-07-17 08:28] LABS: Glucose,Whole Blood 104 mg/dL (75-99)
--- NOTE | 2016-07-17 10:58 | P.PN ---
Subjective This is a 56-year-old female patient who presented emergency department after 48 hours of being discharged from the hospital for worsening shortness of breath and respiratory failure. The patient was in significant respiratory distress at time of arrival tachypneic and tachycardic. She was briefly tried on BiPAP which she failed and she was unable to tolerate and based on that she was placed in the 100% nonrebreather facemask. A CT angios the chest was done which was officially reported as having questionable filling defect in the secondary and tertiary branches of the left upper lobe pulmonary artery however , the striking abnormalities on the CT angios the chest is extensive emphysema and increased interstitial prominence bilaterally more so on the right and development of compressive atelectasis moderate-sized right-sided pleural effusion and this is in comparison to the previous CAT scan imaging there was an approximately a week ago. All these findings are rather new and that is no evidence of any pulmonary fibrosis and the patient has some background advanced COPD. she had developed worsening pulmonary status requiring intubation mechanical ventilation. She was initially evaluated in the intensive care unit. She is seen again today in follow-up on 07/17/2016 on the regular medical floor. She is awake and alert in no acute distress. She is improved significantly from the pulmonary standpoint. She is maintaining good O2 saturations in the mid 90s on room air. She is currently afebrile. She does have continued pain to the left foot and toes. The plan is for stenting to the left common iliac artery with Dr. Regan today. Objective - Vital Signs Vital signs: Vital Signs Temp 98 F 07/17/16 07:00 Pulse 73 07/17/16 07:00 Resp 16 07/17/16 07:00 BP 116/55 07/17/16 07:00 Pulse Ox 97 07/17/16 07:00 Intake & Output 07/16/16 07/17/16 07/17/16 18:59 06:59 18:59 Intake Total 1060.000 332.999 Balance 1060.000 332.999 Weight 50 kg 47 kg Intake: IV 80 110 Sodium Chloride 0.9% 1, 80 110 000 ml @ 10 mls/hr IV . Q24H JANET Rx#:[id number] Intake, IV Titration 500.000 222.999 Amount Heparin Sodium,Porcine/ 500.000 222.999 D5w Pmx 25,000 unit In Dextrose/Water 1 500ml. bag @ 18 UNITS/KG/HR 21. 71 mls/hr IV .Q23H2M JANET Rx#:[id number] Oral 480 Other: Voiding Method Bedside Commode Bedside Commode # Voids 3 2 ABP, PAP, CO, CI - Last Documented Arterial Blood Pressure 112/59 - Exam GENERAL EXAM: Alert, comfortable in no apparent distress. HEAD: Normocephalic. EYES: Normal reaction of pupils, equal size. NOSE: Clear with pink turbinates. THROAT: No erythema or exudates. NECK: No masses, no JVD. CHEST: No chest wall deformity. LUNGS: Equal air entry with faint crackles in the posterior bases. Diminished. CVS: S1 and S2 normal with no audible murmurs, regular rhythm. ABDOMEN: No hepatosplenomegaly, normal bowel sounds, no guarding or rigidity. Extremities: There is no significant peripheral edema. She does have cyanotic toes on the left foot. Peripheral pulses are intact. - Labs CBC & Chem 7: 07/17/16 06:55 07/17/16 06:34 Labs: Abnormal Lab Results - Last 24 Hours (Table) 07/16/16 07/16/16 07/16/16 Range/Units 12:28 16:15 17:10 RBC (3.80-5.40) m/uL Hgb (11.4-16.0) gm/dL Hct (34.0-46.0) % APTT 61.6 H (22.0-30.0) sec Potassium (3.5-5.1) mmol/L BUN (7-17) mg/dL POC Glucose (mg/dL) 101 H 137 H (75-99) mg/dL 07/16/16 07/16/16 07/17/16 Range/Units 19:00 20:13 06:34 RBC (3.80-5.40) m/uL Hgb (11.4-16.0) gm/dL Hct (34.0-46.0) % APTT (22.0-30.0) sec Potassium 3.4 L (3.5-5.1) mmol/L BUN 21 H (7-17) mg/dL POC Glucose (mg/dL) 117 H (75-99) mg/dL 07/17/16 07/17/16 07/17/16 Range/Units 06:34 06:55 07:50 RBC 3.69 L (3.80-5.40) m/uL Hgb 10.8 L (11.4-16.0) gm/dL Hct 33.4 L (34.0-46.0) % APTT 42.0 H (22.0-30.0) sec Potassium (3.5-5.1) mmol/L BUN (7-17) mg/dL POC Glucose (mg/dL) 104 H (75-99) mg/dL Assessment and Plan Plan: Impression: #1 Acute hypoxic respiratory failure secondary to extensive baseline emphysema medical changes and right pleural effusion with compressive atelectasis of the right lung base. Improved both clinically and radiographically. Currently maintaining good O2 saturations in the mid 90s on room air. 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 There is impaired left ventricular systolic function with estimated ejection fraction between 45 and 50%. #3 Acute exacerbation of severe chronic obstructive pulmonary disease. #4 Moderate pulmonary hypertension, RVSP 54 mmHg. #5 Peripheral vascular disease with critical stenosis of the left common iliac artery. The plan is for stenting today. #6 Gangrenous toes secondary to embolization probably from atherosclerosis of the left common iliac artery. Remains on IV heparin. #7 Recent hospitalization for GI bleed secondary to duodenitis and gastritis. #8 Chronic and ongoing nicotine addiction. #9 Nephrolithiasis. #10 Recent treatment for E. coli urinary tract infection completing a course of Cipro floxacillin in the outpatient setting. #11 Poor overall functional performance secondary to the above-mentioned multiple comorbidities. Plan: The patient was seen and evaluated by Dr. Madsen. She is stable from the pulmonary standpoint. The plan is for surgical intervention with open placement of the left common iliac artery stent to improve circulation to the left lower extremity. We'll continue with her current medications. Her heparin drip is currently on hold for her procedure today. We'll continue to follow and make further recommendations based on her clinical status.
[2016-07-17] MEDS ORDERED: ePHEDrine 50 MG/ML 1 ML AMP ONE (12:20)
[2016-07-17] MEDS ORDERED: fentaNYL (PF) 50 MCG/ML 2 ML AMP ONE (12:20)
[2016-07-17] MEDS ORDERED: MIDAZOLAM 2 MG/2 ML VIAL ONE (12:20)
[2016-07-17] MEDS ORDERED: HEPARIN SODIUM,PORCINE 5,000 UNIT/ML 1 ML VIAL ONE (12:20)
[2016-07-17] MEDS ORDERED: LIDOCAINE 1% INJ 10MG/ML (20 ML MDV) ONE (12:20)
[2016-07-17] MEDS ORDERED: VANCOMYCIN 1,000 MG in SODIUM CHLORIDE 0.9% 250 ML IVPB ONE (12:30)
[2016-07-17 12:33] LABS: INR 1.1 (<1.1)
[2016-07-17 12:36] LABS: Prothrombin Time 11.3 sec (9.0-12.0)
[2016-07-17 13:13] LABS: INR 1.1 (<1.1); Prothrombin Time 11.2 sec (9.0-12.0)
[2016-07-17] MEDS ORDERED: IV FLUID CONTINUATION 1,000 ML IV ONE (15:00)
[2016-07-17] MEDS ORDERED: PROTAMINE SULFATE 10 MG/ML 5 ML VIAL IV ONE (15:08)
[2016-07-17] MEDS ORDERED: IODIXANOL 320 MG/ML 100 ML INTRAARTER ONE (15:09)
[2016-07-17] MEDS ORDERED: LACTATED RINGERS 1,000 ML IV ONE (16:17)
--- NOTE | 2016-07-17 16:29 | P.OP ---
Date of Procedure: 07/17/16 Preoperative Diagnosis: gangrene left foot secondary to embolization from left iliac artery Postoperative Diagnosis: same Procedure(s) Performed: pelvic arteriogram; open placement of left common iliac artery covered stent ( 10x60 Fluency) p[ost-dilated with 8x60 balloon Anesthesia: spinal Surgeon: Mehnaz Regan Sales Representative Graphic Art #1: Oscar Harmon Estimated Blood Loss (ml): 100 Pathology: none sent Condition: stable Disposition: PACU Indications for Procedure: gangrene and embolization left foot Operative Findings: see operative note Description of Procedure: dicated
[2016-07-17] MEDS ORDERED: CLOPIDOGREL 75 MG TAB PO STA (16:32)
--- NOTE | 2016-07-17 16:48 | IR ---
Fluoroscopy HISTORY: Pain 9.5 minutes fluoroscopy time supplied to the referring clinician. 1 intraoperative C-arm images docu ment the procedure. See dictated report from vascular surgery.
[2016-07-17 17:14] LABS: Glucose,Whole Blood 95 mg/dL (75-99)
--- NOTE | 2016-07-17 18:06 | P.PN ---
Subjective 56-year-old female that was admitted to the hospital after being treated for a GI bleed/UTI/respiratory issues as well. Patient was significantly hypoxic. Initial computed tomography scan of the chest revealed a left upper lobe territory pulmonary embolism. Patient was also noted to have significant fluid overload on the chest CT. Patient failed BiPAP therapy and hence was intubated overnight. This a.m. patient is currently on the ventilator on a minimal dose of propofol for sedation. Patient is nonresponsive currently on the ventilator at resprate of 12 tidal I will 450 FiO2 of 50% and PEEP of 5. No new overnight events are reported. 07/11/2016 Patient was activated 50 minutes prior to my examination. Patient was on supplement oxygen at 3 L was doing well. Patient is complaining of severe pain in her left lower extremity. Denies having any fevers, chills. No other overnight events reported. 07/12/2016 Patient states to be slightly improved however complains of pain in her left toes. Denies any fevers, chills, nausea, vomiting. She does have a cough that is productive of yellowish sputum. 07/13/2016 Patient is currently off oxygen states to have no new complains. States that her pain is barely tolerable on IV pain medications. Denies having fevers, chills, nausea, vomiting, urinary urgency or frequency at this time. 07/14/2016 Patient denies having any fevers, chills, nausea, vomiting, diarrhea. Currently has not had a bowel movement in over 4 days. 07/15/16 Pt has tachycardia today No symptoms are reported tearful in regards to pain. States she doesnot understand why the surgery was deferred. Explained to the pt , it was due to her respiratory status. 07/16/16 No new overnight events. 07/17/16 No new overnight events. Pt underwent successful placement of a iliac artery stent. No fevers, chills, nausea, vomiting. Objective - Vital Signs Vital signs: Vital Signs Temp 98.0 F 07/17/16 17:45 Pulse 78 07/17/16 17:45 Resp 18 07/17/16 17:45 BP 147/70 07/17/16 17:45 Pulse Ox 99 07/17/16 17:45 Intake & Output 07/16/16 07/17/16 07/17/16 18:59 06:59 18:59 Intake Total 1060.000 332.999 400 Output Total 500 Balance 1060.000 332.999 -100 Weight 50 kg 47 kg Intake: IV 80 110 400 Sodium Chloride 0.9% 1, 80 110 000 ml @ 10 mls/hr IV . Q24H JANET Rx#:[id number] Intake, IV Titration 500.000 222.999 Amount Heparin Sodium,Porcine/ 500.000 222.999 D5w Pmx 25,000 unit In Dextrose/Water 1 500ml. bag @ 18 UNITS/KG/HR 21. 71 mls/hr IV .Q23H2M JANET Rx#:[id number] Oral 480 Output: Urine 500 Other: Voiding Method Bedside Commode Bedside Commode Bedside Commode # Voids 3 2 ABP, PAP, CO, CI - Last Documented Arterial Blood Pressure 112/59 - Exam Gen. appearance awake No distress on room air. Lungs good air entry clear to auscultation no crackles appreciated today Heart regular rate and rhythm no murmurs appreciated. 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 Neurologically moves all 4 extremities cranial nerves 2-12 grossly intact. - Labs CBC & Chem 7: 07/17/16 06:55 07/17/16 06:34 Labs: Abnormal Lab Results - Last 24 Hours (Table) 07/16/16 07/16/16 07/17/16 Range/Units 19:00 20:13 06:34 RBC (3.80-5.40) m/uL Hgb (11.4-16.0) gm/dL Hct (34.0-46.0) % APTT (22.0-30.0) sec Potassium 3.4 L (3.5-5.1) mmol/L BUN 21 H (7-17) mg/dL POC Glucose (mg/dL) 117 H (75-99) mg/dL 07/17/16 07/17/16 07/17/16 Range/Units 06:34 06:55 07:50 RBC 3.69 L (3.80-5.40) m/uL Hgb 10.8 L (11.4-16.0) gm/dL Hct 33.4 L (34.0-46.0) % APTT 42.0 H (22.0-30.0) sec Potassium (3.5-5.1) mmol/L BUN (7-17) mg/dL POC Glucose (mg/dL) 104 H (75-99) mg/dL Assessment and Plan Plan: #1 acute hypoxic respiratory failure likely secondary to an acute exacerbation of congestive heart failure that is diastolic in nature. Underlying right lower lobe bacterial pneumonia cannot be excluded it would likely be gram- negative in nature and healthcare acquired in nature. #2 peripheral vascular disease with critical stenosis of the left common iliac artery, s/p Stent. #3 COPD #4 recent GI bleed #5 nephrolithiasis #6 left upper lobe PE that is questionable #7 mild to moderate protein calorie malnutrition #8 tachyphylaxis-induced congestive heart failure. #9 hypokalemia 10. Sinus tachycardia Plan Decrease lasix to 40mg po daily Neuro checks vascular checks Dressing changes. Pain control Likely Dc jackelyn, if pt qualifies for a novel anticoagulant . will start eliquis 10mg bid.
[2016-07-17] MEDS: ALPRAZolam 0.5 MG TAB PO PRN (19:17)
[2016-07-17] MEDS ORDERED: RX INFO: IV CONTRAST WAS GIVEN 1 EACH MISC MISCELLANE PRN (20:01)
--- NOTE | 2016-07-17 20:11 | P.PN ---
Progress Note - Text Discussed case with Drs. Sanchez and Faustino Still not completely certain that patient had a pulmonary embolism that resulted in acute respiratory failure. A conclusive diagnosis would be valuable for treatment especially in light of patient's recent UGI bleed. Will order repeat CTA of chest to be done on 07/18/2016. Hold apixaban for now secondary to risk of bleeding and inability to provide an antidote. Hold clopidogrel until CTA done. Following.
[2016-07-17 20:20] LABS: Glucose,Whole Blood 100 mg/dL (75-99)
[2016-07-17] MEDS: CYCLOBENZAPRINE 10 MG TAB PO SCH (20:28)
[2016-07-17] MEDS: SODIUM CHLORIDE 0.9% 1,000 ML IV SCH (20:38)
[2016-07-17] MEDS ORDERED: APIXABAN 5 MG TAB PO SCH (21:00)
[2016-07-18] MEDS ORDERED: HEPARIN SODIUM,PORCINE 5,000 UNIT/ML 1 ML VIAL SQ SCH
[2016-07-18] MEDS: HYDROcodone/APAP 10-325MG 1 EACH TAB PO PRN ×3 (00:06→21:43)
[2016-07-18] MEDS: LACTATED RINGERS 1,000 ML IV SCH (02:04)
[2016-07-18 05:49] LABS: Glucose,Whole Blood 158 mg/dL (75-99)
[2016-07-18 07:01] LABS: Basophils % (A) 1 %; CH 29.7; CHCM 32.3; Eosinophils # (A) 0.1 k/uL (0-0.7); Eosinophils % (A) 2 %; HDW 2.94; HGB 9.8 gm/dL (11.4-16.0); Hypochromasia Slight; Luc # (Auto) 0.15; Luc % (Auto) 2; Lymphocytes % (A) 16 %; MCHC 31.4 g/dL (31.0-37.0); MCV 92.4 fL (80.0-100.0); Monocytes # (A) 0.6 k/uL (0-1.0); Monocytes % (A) 9 %; Neutrophils # (A) 4.4 k/uL (1.3-7.7); Neutrophils % (A) 70 %; RBC 3.36 m/uL (3.80-5.40); RDW 15.5 % (11.5-15.5); WBC 6.3 k/uL (3.8-10.6); WBC (Perox) 6.27
[2016-07-18] MEDS: PANTOPRAZOLE 40 MG TABLET PO SCH (07:01)
[2016-07-18] MEDS: INSULIN LISPRO (humaLOG) 300 UNIT/3 ML VIAL SQ SCH ×4 (07:01→21:25)
[2016-07-18 07:34] LABS: ALT 39 U/L (9-52); AST 30 U/L (14-36); Alkaline Phosphatase 61 U/L (38-126); Anion Gap 11 mmol/L; Blood Urea Nitrogen 17 mg/dL (7-17); Carbon Dioxide 24 mmol/L (22-30); Chloride 104 mmol/L (98-107); Glucose 125 mg/dL (74-99); Non-African American GFR(MDRD) >60 (>60 ml/min/1.73 sqM); Potassium 3.7 mmol/L (3.5-5.1); Sodium 139 mmol/L (137-145); Total Bilirubin 0.6 mg/dL (0.2-1.3); Total Protein 5.7 g/dL (6.3-8.2)
--- NOTE | 2016-07-18 07:43 | OP ---
DATE OF SERVICE: 07/17/2016 SURGEON: Mehnaz Regan MD SPRAYER MACHINE: Oscar Harmon MD PREOPERATIVE DIAGNOSIS: Embolic event to left foot from left common iliac artery stenosis with thrombus, moderate left lower extremity arterial occlusive disease. POSTOPERATIVE DIAGNOSIS: Embolic event to left foot from left common iliac artery stenosis with thrombus, moderate left lower extremity arterial occlusive disease. OPERATION: Open placement of a 10 x 60 covered stent (Fluency) with post dilatation using an 8 x 60 balloon. ANESTHESIA: Spinal with IV sedation. ESTIMATED BLOOD LOSS: SPECIMENS REMOVED: COMPLICATIONS: OPERATIVE FINDINGS: INDICATION: The patient is a 56-year-old woman who presented with painful cyanotic toes of the left foot approximately 2 weeks ago. She had a complicated medical history that included respiratory failure requiring intubation and suspected pulmonary embolus. She underwent a CTA of the aorta with runoff , which demonstrated a high grade distal left common iliac artery stenosis with soft thrombus noted and segmental pressures performed of the lower extremities demonstrating an ankle-brachial index of 0.75 on the left and 1.0 on the right. It was felt that the patient had an embolic phenomena to the left forefoot from a soft thrombus involving the distal left common iliac artery. The patient was currently scheduled for an open placement of a left common iliac artery stent and related procedures. DESCRIPTION OF PROCEDURE: After induction of adequate anesthesia via spinal and IV sedation, the patient's groins were prepped and draped in the usual sterile fashion. An incision was made overlying the left common femoral artery. This was carried through the skin and subcutaneous tissue to the femoral sheath. The femoral sheath was incised and the common femoral artery was identified and isolated from the inguinal ligament distally. It was noted to be of good quality and it was of normal caliber. A 21-gauge needle was then placed into the right common femoral artery and an 0.018 wire was threaded proximally followed by a sheath and a core. The wire and core were removed and a 0.035 J wire was threaded into the abdominal aorta. This was followed by a 6-Cambodian sheath. The sheath aspirated and flushed without difficulty. A pigtail was then threaded to the level of approximately L3 and a pelvic arteriogram was performed. This demonstrated a high grade nearly occlusive lesion in the distal left common iliac artery proximal to the takeoff of the internal and external iliac artery. A 21-guage needle was then placed into the left common femoral artery and a 0.018 wire was threaded in a retrograde fashion. This was followed by a sheath and a core. The wire and core were removed and 0.035 J wire was threaded into the left iliac and a 6-Cambodian sheath was placed. An attempt was made to cross the left common iliac artery lesion with a 0.035 Glidewire and a Berenstein catheter, this was unsuccessful. Finally an 0.014 soft-tip wire was threaded through the lesion into the abdominal aorta. This was followed by the Berenstein catheter. The wire was removed and confirmation of intraluminal placement was made with a puff injection. Finally an 0.035 stiff Glidewire was threaded into the abdominal aorta. The patient was given 5000 units of heparin IV. The proximal and distal left common iliac artery was marked and a 10 x 60 Fluency stent was placed in the left common iliac artery and postdilated with an 8 mm balloon with 0% residual stenosis and preservation of the internal and external iliac arteries. All wires, sheaths and catheters were then removed once the common femoral artery was flushed of debris. Of note is that the distal left common iliac artery was clamped during manipulation of the wires and stent through the left iliac lesion. 6-0 Prolene interrupted were used to repair the perforation of the left femoral artery. Prior to completion, prograde and retrograde flow was assessed, was found to be adequate and sutures were tied. Flow was released distally. There was a good pulsation noted in the distal left common femoral artery at the completion of this portion of the procedure. Hemostasis was assured with protamine, Surgicel, and electrocautery. The incision was closed in layers with a 3-0 PDS used to approximate the femoral sheath, a 3-0 PDS used to approximate the deep and superficial subcutaneous tissues and a 4-0 nylon interrupted to skin, sterile dressings. Needle and sponge counts were correct. The right femoral sheath was removed and hemostasis was assured with manual pressure. Patient was returned to the recovery room in satisfactory condition. She had palpable a dorsalis pedal pulses bilaterally. Her left posterior tibial pulse was dopplerable, both feet were viable. [facility]
--- NOTE | 2016-07-18 08:38 | P.PN ---
Progress Note - Text feels better today pain in left foot is improved no other complaints AF VSS EXTR; left groin incision is clean without evidence of hematoma palpable left dorsalis pedis and posterior tibial pulses; left foot gangrene remains dry right groin demonstrates no evidence of hematoma, right foot is viable with no evidence of ischemia Labs; reviewed CTA of chest reviewed with Dr. Medina, radiology; multiple areas of pulmonary emboli in both right and left lung amaya with small thrombus burden noted impression; 1. s/p open placement of left iliac artery stent for ischemia and embolization to left foot 2. pulmonary embolism 3. acute respiratory failure with mixed etiology including PE, diastolic dysfunction, pneumonia 4. nicotine dependence 5. recent UGI bleed plan; 1. begin enoxaperin 1.5mg/kg sq daily and concurrent warfarin 2.5mg po q D with target INR of 2-3 2. conservative management of areas of gangrene of left foot; orders written 3. f/u office in one week (Jass) or sooner 4. f/u of warfarin management by PCP 5. NO antiplatelet agents at this time secondary to concern for recurrent UGI bleed
[2016-07-18] MEDS ORDERED: FUROSEMIDE 40 MG TAB PO SCH (09:00)
[2016-07-18] MEDS ORDERED: ENOXAPARIN 100 MG/ML SYRINGE SQ SCH (09:00)
[2016-07-18] MEDS ORDERED: CLOPIDOGREL 75 MG TAB PO SCH (09:00)
[2016-07-18] MEDS: ENOXAPARIN 80 MG/0.8 ML SYRINGE SQ SCH (09:02)
[2016-07-18] MEDS: DILTIAZEM ORAL 60 MG TAB PO SCH ×4 (09:03→21:43)
[2016-07-18] MEDS: IPRATROPIUM 0.5 MG/2.5 ML NEBU INHALATION SCH ×4 (09:15→20:23)
[2016-07-18] MEDS: LEVALBUTEROL NEB (CONC) 1.25 MG/0.5 ML AMP INHALATION SCH ×4 (09:15→20:23)
[2016-07-18 11:56] LABS: Glucose,Whole Blood 104 mg/dL (75-99)
--- NOTE | 2016-07-18 15:42 | P.PN ---
Subjective This is a 56-year-old female patient who presented emergency department after 48 hours of being discharged from the hospital for worsening shortness of breath and respiratory failure. The patient was in significant respiratory distress at time of arrival tachypneic and tachycardic. She was briefly tried on BiPAP which she failed and she was unable to tolerate and based on that she was placed in the 100% nonrebreather facemask. A CT angios the chest was done which was officially reported as having questionable filling defect in the secondary and tertiary branches of the left upper lobe pulmonary artery however , the striking abnormalities on the CT angios the chest is extensive emphysema and increased interstitial prominence bilaterally more so on the right and development of compressive atelectasis moderate-sized right-sided pleural effusion and this is in comparison to the previous CAT scan imaging there was an approximately a week ago. All these findings are rather new and that is no evidence of any pulmonary fibrosis and the patient has some background advanced COPD. she had developed worsening pulmonary status requiring intubation mechanical ventilation. She was initially evaluated in the intensive care unit. She is seen again today in follow-up on 07/17/2016 on the regular medical floor. She is awake and alert in no acute distress. She is improved significantly from the pulmonary standpoint. She is maintaining good O2 saturations in the mid 90s on room air. She is currently afebrile. She does have continued pain to the left foot and toes. The plan is for stenting to the left common iliac artery with Dr. Regan today. She is seen again today in follow-up on 07/18/2016 on the selective care unit. She is currently awake and alert in no acute distress. She denies any shortness of breath, cough or congestion. She states her pain has subsided since undergoing the procedure yesterday. She's been up with assistance. She has been anticoagulated with heparin secondary to pulmonary embolism. Dr. Regan prefers to utilize Lovenox for now and then initiated on warfarin as her anticoagulant for long-term needs in case there is any recurrence of bleed or issues with the lower extremities. Objective - Vital Signs Vital signs: Vital Signs Temp 98.0 F 07/18/16 12:00 Pulse 96 07/18/16 13:09 Resp 18 07/18/16 12:00 BP 124/69 07/18/16 12:00 Pulse Ox 95 07/18/16 12:00 Intake & Output 07/17/16 07/18/16 07/18/16 18:59 06:59 18:59 Intake Total 400 500 Output Total 500 2400 Balance -100 -1900 Weight 47 kg Intake: IV 400 500 Lactated Ringers 1,000 ml 500 @ 50 mls/hr IV .Q20H JANET Rx#:[id number] Output: Urine 500 2400 Other: Voiding Method Bedside Commode Indwelling Catheter Indwelling Catheter # Voids 2 ABP, PAP, CO, CI - Last Documented Arterial Blood Pressure 112/59 - Exam GENERAL EXAM: Alert, comfortable in no apparent distress. HEAD: Normocephalic. EYES: Normal reaction of pupils, equal size. NOSE: Clear with pink turbinates. THROAT: No erythema or exudates. NECK: No masses, no JVD. CHEST: No chest wall deformity. LUNGS: Equal air entry with faint crackles in the posterior bases. Diminished. CVS: S1 and S2 normal with no audible murmurs, regular rhythm. ABDOMEN: No hepatosplenomegaly, normal bowel sounds, no guarding or rigidity. Extremities: There is no significant peripheral edema. Dressing to left foot dry and intact. Peripheral pulses are intact. - Labs CBC & Chem 7: 07/18/16 06:00 07/18/16 06:00 Labs: Abnormal Lab Results - Last 24 Hours (Table) 07/17/16 07/18/16 07/18/16 Range/Units 20:18 05:42 06:00 RBC 3.36 L (3.80-5.40) m/uL Hgb 9.8 L (11.4-16.0) gm/dL Hct 31.0 L (34.0-46.0) % Glucose (74-99) mg/dL POC Glucose (mg/dL) 100 H 158 H (75-99) mg/dL Total Protein (6.3-8.2) g/dL Albumin (3.5-5.0) g/dL 07/18/16 07/18/16 Range/Units 06:00 11:53 RBC (3.80-5.40) m/uL Hgb (11.4-16.0) gm/dL Hct (34.0-46.0) % Glucose 125 H (74-99) mg/dL POC Glucose (mg/dL) 104 H (75-99) mg/dL Total Protein 5.7 L (6.3-8.2) g/dL Albumin 3.0 L (3.5-5.0) g/dL Assessment and Plan Plan: Impression: #1 Acute hypoxic respiratory failure secondary to extensive baseline emphysema medical changes and right pleural effusion with compressive atelectasis of the right lung base. Improved both clinically and radiographically. Currently maintaining good O2 saturations in the mid 90s on room air. 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 There is impaired left ventricular systolic function with estimated ejection fraction between 45 and 50%. #3 Acute exacerbation of severe chronic obstructive pulmonary disease. #4 Moderate pulmonary hypertension, RVSP 54 mmHg. #5 Peripheral vascular disease with critical stenosis of the left common iliac artery. The plan is for stenting today. #6 Gangrenous toes secondary to embolization probably from atherosclerosis of the left common iliac artery. Remains on IV heparin. #7 Recent hospitalization for GI bleed secondary to duodenitis and gastritis. #8 Chronic and ongoing nicotine addiction. #9 Nephrolithiasis. #10 Recent treatment for E. coli urinary tract infection completing a course of Cipro floxacillin in the outpatient setting. #11 Poor overall functional performance secondary to the above-mentioned multiple comorbidities. Plan: The patient was seen and evaluated by Dr. Madsen. She is stable from the pulmonary standpoint. She has done well postoperatively. No pulmonary complaints. We'll continue with her current medications. Anticoagulation is being addressed. We'll continue to follow and make further recommendations based on her clinical status.
[2016-07-18 17:14] LABS: Glucose,Whole Blood 117 mg/dL (75-99)
[2016-07-18] MEDS ORDERED: WARFARIN 2.5 MG TAB PO SCH (18:00)
[2016-07-18 21:23] LABS: Glucose,Whole Blood 119 mg/dL (75-99)
[2016-07-18] MEDS: CYCLOBENZAPRINE 10 MG TAB PO SCH (21:43)
[2016-07-19] MEDS: SODIUM CHLORIDE 0.9% 1,000 ML IV SCH (00:07)
[2016-07-19] MEDS: LACTATED RINGERS 1,000 ML IV SCH (00:08)
[2016-07-19] MEDS: HYDROcodone/APAP 10-325MG 1 EACH TAB PO PRN ×2 (05:37→12:19)
[2016-07-19 06:01] LABS: Glucose,Whole Blood 106 mg/dL (75-99)
[2016-07-19] MEDS: INSULIN LISPRO (humaLOG) 300 UNIT/3 ML VIAL SQ SCH ×2 (06:10→12:07)
[2016-07-19 06:46] LABS: INR 1.1 (<1.1); Prothrombin Time 11.1 sec (9.0-12.0)
[2016-07-19] MEDS: PANTOPRAZOLE 40 MG TABLET PO SCH (07:02)
--- NOTE | 2016-07-19 08:54 | P.PN ---
Progress Note - Text no new complaints appetite is improving AF VSS left leg; incision is clean, no evidence of hematoma, palpable dorsalis pedis and posterior tibial pulses; gangrene remains dry and stable foot is warm and viable impression/plan 1. s/p open placement of left iliac artery stent for symptomatic left iliac artery stenosis 2. pulmonary embolism continue dressing changes as directed continue anticoagulation with enoxaperin 1.5mg sq daily and warfarin 2.5mg po q D discussed case with PCP; re; pulmonary embolism and need for anticoagulation with warfarin x 1 month while vascular status stabilizes OK to d/c home from vascular standpoint f/u office 07/29/2016
[2016-07-19] MEDS: LEVALBUTEROL NEB (CONC) 1.25 MG/0.5 ML AMP INHALATION SCH ×2 (08:58→12:42)
[2016-07-19] MEDS: IPRATROPIUM 0.5 MG/2.5 ML NEBU INHALATION SCH ×2 (08:58→12:18)
[2016-07-19] MEDS: DILTIAZEM ORAL 60 MG TAB PO SCH ×2 (10:00→12:16)
[2016-07-19] MEDS: ENOXAPARIN 80 MG/0.8 ML SYRINGE SQ SCH (10:01)
[2016-07-19 10:19] VITALS: TEMP 97
[2016-07-19 12:02] LABS: Glucose,Whole Blood 97 mg/dL (75-99)
[2016-07-19 12:32] VITALS: BP 108/71; PULSE 102; RESP 19
[2016-07-19 12:50] VITALS: BMI 22.4
--- NOTE | 2016-07-19 13:06 | PN ---
DATE OF SERVICE: 07/18/2016 INTERVAL HISTORY: Ms Orellana is a 56-year-old female who was initially admitted to the hospital after being treated for GI bleed, UTI and respiratory issues as well. Patient was significantly hypoxic and initial CT scan of the chest revealed left upper lobe ( ) pulmonary embolism. Patient was also noted to have significant fluid overload and on chest CT. Patient failed outpatient therapy and intubated and he was extubated successfully. Currently patient underwent successful placement of iliac artery stent. Otherwise, the patient denied any fever or chills. No nausea or vomiting. Patient was started on Coumadin therapy and Lovenox bridging therapy as well. Anticipate discharge to rehab with more clinical improvement in next 24 hours. REVIEW OF SYSTEMS: CONSTITUTIONAL: No fever. No chills. RESPIRATORY: No cough or sputum production. CARDIOVASCULAR: No chest pain or shortness of breath. ABDOMEN: No nausea, vomiting, or abdominal pain. GENITOURINARY: Negative. ENDOCRINE: Negative. PSYCHIATRY: Negative. All other 14-point review of systems negative except as above. Current medications include [place] 10 mg, Xanax, Flexeril, Cardizem, Lovenox, Lasix, Humalog, Atrovent, Ringer's lactate, Xopenex, Ativan, Narcan, Protonix and warfarin. PHYSICAL EXAMINATION: A 56-year-old female sitting on a chair comfortably. Awake, alert, oriented x3. Appears to be in no apparent distress. VITALS: Blood pressure is 130/70, pulse 87, respirations 18, temperature afebrile, pulse ox 94% on room air. HEENT: Atraumatic, normocephalic. Neck is supple. No JVD. CVS EXAM: S1, S2 heard. No murmurs, no gallop, no rub. LUNGS: Bilateral air entry is present. No wheezing. No crackles. Nonlabored breathing. ABDOMEN: Soft, nontender. Bowel sounds are present. GROUP THERAPY COUNSELOR: Awake, alert, oriented x3. No focal deficit. EXTREMITIES: Left lower extremity bandaged at this time and left second toe gangrenous, warm to touch. Pulses palpable bilaterally. No clubbing or cyanosis. PSYCHIATRIC: Cooperative. LABORATORY DATA: WBC 6.3, hemoglobin 9.8, platelets 176. Sodium 139 potassium 3.7, chloride 104, bicarb is 24. BUN 17, creatinine 0.7. Albumin 3.0. IMPRESSION: 1. Acute hypoxic respiratory failure secondary to congestive heart failure and underlying pneumonia, cannot be excluded. 2. Acute exacerbation of acute on chronic congestive heart failure with systolic and diastolic dysfunction with ejection fraction 45% to 50%. 3. Moderate pulmonary hypertension with right ventricular systolic pressure of 54 mmHg. 4. Acute exacerbation of chronic obstructive pulmonary disease . 5. Recent gastrointestinal bleed. 6. Nephrolithiasis. 7. Left upper lobe pulmonary embolism, which is questionable. 8. Mild to moderate protein calorie malnutrition. 9. Hypokalemia. 10. Peripheral vascular disease with critical stenosis of the left common iliac artery, status post stent placement. 11. Gangrenous toe secondary to embolization probably from ( ) from the left common iliac artery currently remains on heparin and continue with the Coumadin anticoagulation. 12. Chronic ongoing nicotine addiction. 13. Recent treatment for Escherichia coli urinary tract infection, completing a course of ciprofloxacin in an outpatient setting. DISCUSSION AND PLAN: Patient will be continued on current management. Continue Coumadin dosing. Continue the PT, OT and anticipate discharge home with home care therapy/extended rehab next 24 hours. Otherwise, will continue with current management and further recommendations based on the clinical course. Patient symptomatically much improved.
--- NOTE | 2016-07-21 10:54 | DS ---
DATE OF ADMISSION: 07/08/2016 DATE OF DISCHARGE: 07/19/2016 DISCHARGE DIAGNOSES: 1. Acute hypoxic respiratory failure secondary to congestive heart failure and underlying pneumonia. 2. Acute exacerbation of acute on chronic congestive heart failure with systolic dysfunction and diastolic dysfunction both with ejection fraction of 45% to 50%. 3. Moderate pulmonary hypertension with right ventricular systolic pressure of 54 mmHg. 4. Acute exacerbation of chronic obstructive pulmonary disease, improved. 5. Recent gastrointestinal bleed. 6. Nephrolithiasis. 7. Left upper lobe pulmonary embolism. 8. Mild to moderate protein calorie malnutrition. 9. Hypokalemia, improved. 10. Peripheral vascular disease with critical stenosis of the left common iliac artery, status post stent placement during this admission. 11. Gangrenous toes secondary to embolization from left common iliac artery, currently patient was treated with heparin and transitioned to Coumadin with Lovenox bridging. 12. Chronic ongoing nicotine addiction, constant. 13. Recent treatment of E. coli urinary tract infection, completed antibiotic course with Cipro as an outpatient. HOSPITAL COURSE: Mr. Orellana is with a 56-year-old female with a known history of recent GI bleed and UTI, admitted to the hospital with acute hypoxic respiratory failure. Initial CT scan of the chest revealed left upper lobe pulmonary embolism. The patient was otherwise noted to have significant fluid overload. Patient was initially intubated and successfully extubated after diuresis. Her ( ) is much improved now. Patient is currently saturating well on room air. Otherwise, the patient was found to have left toe gangrenous changes and found to have a critical left iliac artery stenosis, status post stent placement during the admission. Otherwise, the patient is currently being treated with anticoagulation for possible emboli to the left lower extremity. The patient was on heparin IV, transitioned to Coumadin now with Lovenox bridging. Otherwise, patient denied any left lower extremity pain now. No complaints of shortness of breath. The ( ) is clear from that standpoint. Otherwise the patient is stable to be discharged to home with home health care therapy. DISCHARGE PHYSICAL EXAMINATION: The patient is a 56-year-old female, lying in bed comfortably, awake, alert, oriented, x3, the patient is no apparent distress. VITALS: Blood pressure is 108/74, pulse 102, respirations 19, temperature afebrile, pulse ox is 94% on room air. Laboratory data reviewed. Discharge physical examination done. DISCHARGE MEDICATIONS INCLUDE: 1. Albuterol sulfate. 2. ProAir HFA 2 every 6 hours p.r.n. for shortness of breath. 3. Flexeril 10 mg p.o. at bedtime. 4. Gabapentin 800 mg p.o. t.i.d. 5. Benadryl 50 mg p.o. t.i.d. p.r.n. for itching. 6. Ciprofloxacin 500 mg p.o. every 12 hours to complete antibiotic course. 7. Xanax 0.25 mg p.o. t.i.d. p.r.n. anxiety. 8. [place] 7.5 one tablet every 6 hours p.r.n. for pain. 9. Nicotine patch 14 mg one patch transdermal daily. 10. Protonix 40 mg p.o. daily. 11. Atorvastatin 40 mg p.o. at bedtime. 12. Cardizem CD 60 mg p.o. q.i.d. 13. Lovenox 70 mg subcutaneous daily. 14. Lasix 40 mg p.o. daily. 15. Potassium chloride 20 mEq p.o. daily. The patient will be discharged home with home health care services. Follow with Dr. Madsen and follow with Dr. Macias ( ) and follow with Dr. West.
[2016-07-24] MEDS ORDERED: APIXABAN 5 MG TAB PO SCH (09:00)
== END 2016-07-19 15:39 | disposition home health service (06) | DRG 853 ==
LOC: EC 18:16 → 6SEL 19:33 → 6ICU 07-09 12:29 → 5MS5E 07-12 22:15 → 6SEL 07-17 13:03
PROVIDERS: ADMIT Hospitalist; ATTEND Hospitalist
PROC: 5A1945Z Respiratory Ventilation, 24-96 Consecutive Hours (ICD-10-PCS; 2016-07-09)
PROC: 02HV33Z Insertion of Infusion Device into Superior Vena Cava, Percutaneous Approach (ICD-10-PCS; 2016-07-09)
PROC: 0D9670Z Drainage of Stomach with Drainage Device, Via Natural or Artificial Opening (ICD-10-PCS; 2016-07-09)
PROC: 0BH17EZ Insertion of Endotracheal Airway into Trachea, Via Natural or Artificial Opening (ICD-10-PCS; 2016-07-09)
PROC: 047D0DZ Dilation of Left Common Iliac Artery with Intraluminal Device, Open Approach (ICD-10-PCS; principal; 2016-07-17 12:15)
DX: A41.9 Sepsis, unspecified organism (principal); J96.01 Acute respiratory failure with hypoxia; I26.99 Other pulmonary embolism without acute cor pulmonale; I50.43 Acute on chronic combined systolic (congestive) and diastolic (congestive) heart failure; J15.6 Pneumonia due to other Gram-negative bacteria; E87.3 Alkalosis; J44.0 Chronic obstructive pulmonary disease with (acute) lower respiratory infection; I74.5 Embolism and thrombosis of iliac artery; I11.0 Hypertensive heart disease with heart failure; E44.0 Moderate protein-calorie malnutrition; I70.262 Atherosclerosis of native arteries of extremities with gangrene, left leg; J44.1 Chronic obstructive pulmonary disease with (acute) exacerbation; J98.11 Atelectasis; I27.2 Other secondary pulmonary hypertension; Y95 Nosocomial condition; E87.6 Hypokalemia; Z88.6 Allergy status to analgesic agent; I07.1 Rheumatic tricuspid insufficiency; G89.29 Other chronic pain; N20.0 Calculus of kidney; Z86.711 Personal history of pulmonary embolism; N13.9 Obstructive and reflux uropathy, unspecified; Z87.891 Personal history of nicotine dependence; K29.70 Gastritis, unspecified, without bleeding; K29.80 Duodenitis without bleeding; G62.9 Polyneuropathy, unspecified; Z79.2 Long term (current) use of antibiotics; Z79.899 Other long term (current) drug therapy
CPT/HCPCS: 31500; 36415; 36600; 36620; 37221; 51702; 71010; 71275; 80048; 80053; 80202; 81001; 82550; 82553; 82805; 83605; 83735; 83880; 84100; 84132; 84484; 85025; 85027; 85347; 85379; 85610; 85730; 86850; 86900; 86901; 87040; 87070; 87086; 87205; 87502; 93005; 94002; 94003; 94640; 94644; 94660; 94760; 96361; 96365; 96366; 96367; 96375; 96376; 99291